=== PATIENT | male | born 1960 | race Caucasian/White ===

== ENCOUNTER 2024-08-11 07:42 | Outpatient (RCR) | payer BC, SELFPAY ==
[2024-08-04 13:02] VITALS: BMI 28.3
== END 2024-11-02 23:59 | disposition home or self-care (01) ==
LOC: ANHWOC 07:42
PROVIDERS: PCP Family Medicine; Visit Provider Student in an Organized Health Care Education/Training Program
DX: E11.42 Type 2 diabetes mellitus with diabetic polyneuropathy (principal); E11.621 Type 2 diabetes mellitus with foot ulcer; L97.519 Non-pressure chronic ulcer of other part of right foot with unspecified severity; L97.529 Non-pressure chronic ulcer of other part of left foot with unspecified severity
CPT/HCPCS: 99214; A9270; G0463

== ENCOUNTER 2024-08-18 11:45 | Outpatient (CLI) | payer BC, SELFPAY ==
[2024-08-18 12:19] LABS: Basophils Absolute Auto 0.1 K/mm3 (0.0-0.1); Basophils Percent Auto 0.5 % (0.2-1.2); Eosinophils Absolute Auto 0.3 K/mm3 (0-0.3); Eosinophils Percent Auto 2.4 % (0-4.4); Hematocrit 42.1 % (42.0-52.0); Hemoglobin 12.8 g/dL (14.0-18.0); Immature Granulocyte Absolute 0.07 K/mm3 (0.00-0.031); Immature Granulocyte Percent A 0.6 % (0-0.5); Lymphocytes Absolute Auto 1.48 K/mm3 (0.9-3.2); Lymphocytes Percent Auto 13.2 % (18.3-44.2); Mean Corpuscular HGB Conc 30.4 g/dl (32-36); Mean Corpuscular Hemoglobin 25.7 pg (26-34); Mean Corpuscular Volume 84.4 fl (80-100); Mean Platelet Volume 8.8 fl (7.4-10.4); Monocytes Absolute Auto 1.4 K/mm3 (0.1-0.6); Monocytes Percent Auto 12.8 % (2.6-8.5); Neutrophils Absolute Auto 7.9 K/mm3 (1.3-6.7); Neutrophils Percent Auto 70.5 % (45.5-73.1); Platelet Count Result 381 k/mm3 (150-375); Red Blood Count 4.99 M/mm3 (4.6-6.20); Red Cell Distribution Width 16.9 % (11.5-14.5); White Blood Count 11.2 K/mm3 (4.5-10.0)
--- NOTE | 2024-08-18 12:23 | ECG_ITS ---
Test Date: 2024-08-18 12:29:31 Measurements Intervals [place] Rate: 91 P: 37 WI: 101 QRS: 51 QRSD: 82 T: 58 QT: 324 QTc: 399 Interpretive Statements SINUS RHYTHM WITH SHORT WI INTERVAL No previous ECG available for comparison Electronically Signed On 08-18-2024 15:30:31 CDT by Frank Ramon M.D.
[2024-08-18 12:36] LABS: CRP 1.3 mg/dL (<1.0)
== END 2024-08-18 11:46 | disposition home or self-care (01) ==
PROVIDERS: PCP Family Medicine; Visit Provider Family Medicine
DX: I45.6 Pre-excitation syndrome (principal); L03.90 Cellulitis, unspecified; I10 Essential (primary) hypertension
CPT/HCPCS: 36415; 85025; 86140; 87040; 93005

== ENCOUNTER 2025-05-16 21:01 | Inpatient (IN) | payer MEDICAID, SELFPAY ==
--- NOTE | ~2025-05-16 | MR_ITS ---
EXAMINATION: MR shoulder LT wo con DATE: 05/22/2025 14:08 INDICATION: Left shoulder pain TECHNIQUE: Magnetic resonance imaging (MRI) of the left shoulder was performed without intravenous co ntrast. Sequences included axial PD-weighted FS FSE, coronal oblique PD-weighted FS FSE, coronal obli que T2-weighted FS FSE, sagittal PD-weighted FS FSE, and sagittal T1-weighted SE. COMPARISON: None. FINDINGS: Evaluation mild to moderately limited by motion artifact is some degree on all sequences. Coracoacromial arch: The acromion undersurface is flat in morphology (type I). The coracoacromial ligament is normal. Mild acromioclavicular osteoarthritis. Rotator cuff: The supraspinatus, infraspinatus and teres minor tendons are normal. Mild subscapularis tendinopathy without tear. Normal rotator cuff muscle bulk and signal. Biceps tendon, glenoid labrum and glenohumeral cartilage: Long head of the biceps tendon is normal. Anteroinferior glenoid labrum is mildly thickened with mild increased signal consistent with labral degeneration. There is also thickening and increased signal of the cartilage at the anteroinferior glenoid with configuration suggesting either chondral swelling or potentially a nondisplaced chondral flap tear. Fluid: Small glenohumeral joint effusion with fluid versus synovitis extending caudally along the articulati ng long head biceps tendon sheath. No loose osteochondral bodies. Mild increased fluid signal in the subacromial/subdeltoid bursa consistent with minimal bursitis. Bones: Bone alignment is normal. There is suggestion of a small old Hill-Sachs fracture trough at the nuclear licensing engineer ior superolateral aspect of the humeral head without associated edema to suggest acute injury. No acu te fracture or pathologic marrow replacing process. IMPRESSION: 1. Evaluation moderately limited by motion artifact present to some degree on all sequences. 2. Constellation of findings suggesting sequela of chronic anterior shoulder dislocation with chronic appearing shallow Hill-Sachs fracture trough at the humeral head and with low to moderate grade nader dromalacia and degenerative tearing of the glenoid labrum at the anteroinferior glenoid. 3. Mild subscapularis tendinopathy without discrete tear. 4. Small left glenohumeral joint effusion and minimal subacromial/subdeltoid bursitis. Reviewed, dictated and finalized at location A. IMPRESSION: 1. Evaluation moderately limited by motion artifact present to some degree on a ll sequences. 2. Constellation of findings suggesting sequela of chronic anterior shoulder di slocation with chronic appearing shallow Hill-Sachs fracture trough at the herbert ral head and with low to moderate grade chondromalacia and degenerative tearing of the glenoid labrum at the anteroinferior glenoid. 3. Mild subscapularis tendinopathy without discrete tear. 4. Small left glenohumeral joint effusion and minimal subacromial/subdeltoid bu rsitis.
--- NOTE | ~2025-05-16 | US_ITS ---
EXAMINATION: US arterial duplex LE DATE: 05/21/2025 16:35 INDICATION: Peripheral vascular disease with lower limb pain and nonhealing wounds TECHNIQUE: Multiple grayscale and Doppler ultrasound images of the arteries of the bilateral lower li mbs were obtained. COMPARISON: None FINDINGS: Normal triphasic waveforms with brisk systolic upstrokes at the right common femoral, superficial fem oral, profunda femoral, popliteal, posterior tibial, peroneal and anterior tibial arteries. Biphasic waveforms with brisk systolic upstroke at the right dorsalis pedis artery. Gradual decrease in the pr oximal to distal peak systolic velocities of the arteries with no evident hemodynamically significant stenosis on grayscale imaging or focally increased velocities to suggest this. Normal triphasic waveforms with brisk systolic upstrokes at the left common femoral, profunda femoral , superficial femoral, popliteal, posterior tibial, peroneal and anterior tibial arteries. Monophasic waveform with brisk systolic upstroke at the left anterior tibial artery. Gradual decrease in the pr oximal to distal peak systolic velocities of the arteries with no evident hemodynamically significant stenosis on grayscale imaging or focally increased velocities to suggest this. IMPRESSION: 1. Normal brisk systolic upstrokes throughout the arteries of the bilateral lower limbs with no evide nt hemodynamically significant stenosis by Doppler or grayscale imaging. Reviewed, dictated and finalized at location A. IMPRESSION: 1. Normal brisk systolic upstrokes throughout the arteries of the bilateral low er limbs with no evident hemodynamically significant stenosis by Doppler or gra yscale imaging.
--- NOTE | ~2025-05-16 | XR_ITS ---
XR ankle RT min 3V, XR foot RT min 3V 05/17/2025 02:01 Indication: Ulcers. Infection. Procedure: 5 views right ankle and 4 views right foot Comparison: No prior studies for comparison. Findings: There is periosteal reaction along the distal aspect of the fibula and tibia. Soft tissue i rregularity with swelling. There is skin thickening overlying the anterior aspect of the ankle and do rsum of the foot. Lisfranc joint intact. No acute fracture. Impression: 1: Extensive skin thickening dorsum of the foot and anterior margin of the ankle. Periosteal reaction of the distal aspect of the fibula and tibia. These findings are suspicious for underlying osteomyel itis with cellulitis. Recommend correlation with MRI of the ankle/foot with contrast. Reviewed, dictated and finalized at location A. Impression: 1: Extensive skin thickening dorsum of the foot and anterior margin of the ankl e. Periosteal reaction of the distal aspect of the fibula and tibia. These find ings are suspicious for underlying osteomyelitis with cellulitis. Recommend cor relation with MRI of the ankle/foot with contrast. Impression: 1: Extensive skin thickening dorsum of the foot and anterior margin of the ankl e. Periosteal reaction of the distal aspect of the fibula and tibia. These find ings are suspicious for underlying osteomyelitis with cellulitis. Recommend cor relation with MRI of the ankle/foot with contrast.
--- NOTE | ~2025-05-16 | XR_ITS ---
XR knee LT 3V 05/17/2025 02:01 Indication: Left knee pain. Patient unable to straighten knee. Procedure: 3 views left knee are suboptimal due to flexion at the knee. Comparison: No prior studies for comparison. Findings: Mild osteoarthritis of the patellofemoral compartment. No acute fracture or traumatic malal ignment. There is an old avulsion fracture involving the lateral collateral ligament at the femoral c ondyle. Small joint effusion. No acute fracture. Impression: 1: No acute fracture. Limited study. 2: Small joint effusion. Reviewed, dictated and finalized at location A. Impression: 1: No acute fracture. Limited study. 2: Small joint effusion.
--- NOTE | ~2025-05-16 | XR_ITS ---
XR shoulder LT min 2V 05/17/2025 02:01 Indication: Left shoulder pain Procedure: 4 views left shoulder Comparison: No prior studies for comparison. Findings: There is superior subluxation of the humeral head with respect to the glenoid process, like ly secondary to rotator cuff tear. No fracture, subluxation or dislocation. There is mild osteoarthri tis of the shoulder. Impression: 1: No acute fracture. Reviewed, dictated and finalized at location A. Impression: 1: No acute fracture.
--- NOTE | ~2025-05-16 | MR_ITS ---
EXAMINATION: MR foot LT wo/w con DATE: 05/18/2025 14:00 INDICATION: Ulcers and infection at the left foot and ankle. Assess for osteomyelitis. TECHNIQUE: Magnetic resonance imaging (MRI) of the left hindfoot and ankle was performed without and with 15 mL Multihance intravenous contrast. Sequences included axial, sagittal and coronal T1-weighte d FSE, sagittal fluid sensitive FSE STIR, axial and coronal T2-weighted FS FSE, axial T1-weighted FS FSE, and postcontrast axial, sagittal and coronal T1-weighted FSE. COMPARISON: None FINDINGS: Bone alignment is normal. No fracture. Mild polyarticular osteoarthritis with minimal to mild nonunif orm joint space narrowing and/or tiny marginal osteophytes at the left ankle joint and the visualized joints in the mid and hindfoot. There is subarticular edema-like signal change and enhancement at th e both sides of the ankle joint which corresponds in location to a prominent subchondral osteopenia o n the prior radiographs. Similar findings are seen to lesser extent at the subtalar, talonavicular an d calcaneocuboid joints. No evident cortical erosions, osteophytes or geographic loss of T1 marrow fa t signal to suggest osteomyelitis. Also argue against osteomyelitis is absence of associated joint ef fusions. This could be due to transient osteoporosis, complex regional pain syndrome or inflammatory arthritis such as rheumatoid arthritis. There is normal marrow signal with no loss of T1 fat signal, edema or enhancement associated with a chronic periosteal reaction along the metadiaphyseal regions o f the distal tibia and fibula which could be due to venous stasis or hypertrophic pulmonary osteoarth ropathy. Heterotopic ossification along the anterior talofibular ligament likely sequela of chronic sprain. Th e remaining medial and lateral stabilizing ligaments of the ankle are normal. Mild tendinopathy and l ongitudinal split tears of the peroneus longus and brevis tendons with mild associated tenosynovitis. This also mild tendinosis without tear of the distal Achilles tendon. Plantar aponeurosis is normal. There is moderate fatty atrophy of the visualized intrinsic musculature of the foot. Mild soft tissu e edema in the foot with no abscess or other abnormal enhancing lesions. There is skin thickening abo ut the ankle and over the dorsum of the foot which could be due to cellulitis or chronic venous stasi s. IMPRESSION: 1. Chronic periosteal reaction along the distal metadiaphyseal regions of the tibia and fibula withou t associated marrow signal changes which could be due to chronic venous stasis or potentially hypertr ophic pulmonary osteoarthropathy. No lesion suspicious for osteomyelitis in the right hind foot or an kle. 2. Subchondral edema-like signal change and enhancement without cortical erosions, loss of T1 marrow fat signal more joint effusions to suggest osteomyelitis at the ankle, subtalar, talonavicular and ca lcaneocuboid joints which could be due to osteoarthritis, inflammatory arthritis, complex regional pa in syndrome or transient osteoporosis. 3. Mild tendinopathy and longitudinal split tears of the peroneus longus and brevis tendons with mild associated tenosynovitis. Reviewed, dictated and finalized at location A. IMPRESSION: 1. Chronic periosteal reaction along the distal metadiaphyseal regions of the t ibia and fibula without associated marrow signal changes which could be due to chronic venous stasis or potentially hypertrophic pulmonary osteoarthropathy. N o lesion suspicious for osteomyelitis in the right hind foot or ankle. 2. Subchondral edema-like signal change and enhancement without cortical erosio ns, loss of T1 marrow fat signal more joint effusions to suggest osteomyelitis at the ankle, subtalar, talonavicular and calcaneocuboid joints which could be due to osteoarthritis, inflammatory arthritis, complex regional pain syndrome o r transient osteoporosis. 3. Mild tendinopathy and longitudinal split tears of the peroneus longus and br colleen tendons with mild associated tenosynovitis.
--- NOTE | ~2025-05-16 | MR_ITS ---
EXAMINATION: MR foot RT wo/w con DATE: 05/19/2025 13:59 INDICATION: Assess for osteomyelitis. TECHNIQUE: Magnetic resonance imaging (MRI) of the right hindfoot and ankle was performed without and with 18 mL Multihance intravenous contrast. Sequences included axial, sagittal and coronal T1- weighted FSE, sagittal fluid sensitive FSE STIR, axial and coronal T2-weighted FS FSE, axial T1- weighted FS FSE, and postcontrast axial, sagittal and coronal T1-weighted FSE. COMPARISON: Right ankle radiographs dated 05/17/2025 and contralateral left ankle and hindfoot MRI omid ed 05/18/2025 FINDINGS: Bone alignment is normal. No fracture. Mild polyarticular osteoarthritis with minimal to mild nonunif orm joint space narrowing and/or tiny marginal osteophytes at the left ankle joint and the visualized joints in the mid and hindfoot. There is subarticular edema-like signal change and enhancement at th e both sides of the ankle joint which corresponds in location to prominent subchondral osteopenia on the prior radiographs. Similar findings are seen to lesser extent at the subtalar, talonavicular and calcaneocuboid joints. This appears relatively symmetric with the findings at the left ankle and hind foot observed on MRI from one day prior. No evident cortical erosions, osteolysis or geographic loss of T1 marrow fat signal to suggest osteomyelitis. There is some enhancing synovitis at the margins of these joint spaces but no evident joint effusion to elevate suspicion for osteomyelitis. This could be due to transient osteoporosis, inflammatory arthritis such as rheumatoid arthritis or, complex reg ional pain syndrome although a symmetric pattern at the bilateral ankles and hindfeet would be unusua l. There is normal marrow signal with no loss of T1 fat signal, edema or enhancement associated with a chronic periosteal reaction along the metadiaphyseal regions of the distal tibia and fibula which c ould be due to venous stasis or hypertrophic pulmonary osteoarthropathy. This is similarly nearly julissa ntical to the contralateral distal left lower leg which also argues against chronic osteomyelitis. There is attenuation of the anterior talofibular ligament without significant surrounding edema consi stent with sequela of chronic sprain/partial tear. The remaining medial and lateral stabilizing ligam ents of the ankle are normal. Mild tendinosis without tear of the distal Achilles tendon with mild pe ritendinitis. Remaining flexor and extensor tendons of the foot and ankle are normal. Mild proximal p lantar enthesopathy without associated edema or enhancement to suggest acute plantar fasciitis. Relat ively symmetric moderate fatty atrophy of the visualized intrinsic musculature of the foot. Mild soft tissue edema in the foot with no abscess or other abnormal enhancing lesions. There is skin thickeni ng about the ankle and over the dorsum of the foot which given the symmetry would favor venous stasis over cellulitis. There is a shallow likely venous stasis ulcer with some surrounding subcutaneous ed alissa posterior medial to the distal tibial metaphysis. No abscess. IMPRESSION: 1. Relatively symmetric appearance of chronic periosteal reaction along the distal metadiaphyseal reg ions of the tibia and fibula without associated marrow signal changes and with similarly symmetric sk in thickening at the ankle and dorsum of the hindfoot as seen at the contralateral foot and ankle windy uld be most consistent with changes of chronic venous stasis with likely venous stasis ulcer at the m edial aspect of the distal right lower leg. Differential for the periosteal reaction would include le ss likely hypertrophic pulmonary osteoarthropathy. No abscess or lesion suspicious for osteomyelitis in the right hind foot or ankle. 2. Subchondral edema-like signal change and enhancement without cortical erosions, loss of T1 marrow fat signal without joint effusions at the right ankle, subtalar, talonavicular and calcaneocuboid yessenia nts similar to that previously seen at the left foot and ankle which could be due to osteoarthritis, inflammatory arthritis, transient osteoporosis or less likely complex regional pain syndrome. 3. Mild right Achilles tendinosis and mild peritendinitis. Reviewed, dictated and finalized at location A. IMPRESSION: 1. Relatively symmetric appearance of chronic periosteal reaction along the dis maris metadiaphyseal regions of the tibia and fibula without associated marrow si gnal changes and with similarly symmetric skin thickening at the ankle and dors um of the hindfoot as seen at the contralateral foot and ankle should be most c onsistent with changes of chronic venous stasis with likely venous stasis ulcer at the medial aspect of the distal right lower leg. Differential for the perio steal reaction would include less likely hypertrophic pulmonary osteoarthropath y. No abscess or lesion suspicious for osteomyelitis in the right hind foot or ankle. 2. Subchondral edema-like signal change and enhancement without cortical erosio ns, loss of T1 marrow fat signal without joint effusions at the right ankle, huggins btalar, talonavicular and calcaneocuboid joints similar to that previously seen at the left foot and ankle which could be due to osteoarthritis, inflammatory arthritis, transient osteoporosis or less likely complex regional pain syndrome . 3. Mild right Achilles tendinosis and mild peritendinitis.
--- NOTE | ~2025-05-16 | US_ITS ---
EXAMINATION: US venous doppler LE DATE: 05/24/2025 17:00 INDICATION: bedrest, LE wounds and pain. TECHNIQUE: Grayscale images without and with compression and Doppler images of the bilateral lower ex tremity veins were obtained. COMPARISON: None FINDINGS: The right common femoral vein, profunda (deep) femoral vein, femoral vein, popliteal vein, peroneal v ein, posterior tibial veins, gastrocnemius vein, and greater saphenous vein are patent. The left common femoral vein, profunda (deep) femoral vein, femoral vein, popliteal vein, peroneal v ein, posterior tibial veins, gastrocnemius vein, and greater saphenous vein are patent. IMPRESSION: Patent bilateral lower extremity veins. No evidence of deep venous thrombosis. Reviewed, dictated and finalized at location K.
--- NOTE | ~2025-05-16 | XR_ITS ---
XR ankle LT min 3V, XR foot LT min 3V 05/17/2025 02:01 Indication: Ulcers. Infection. Procedure: 3 views left ankle and 3 views left foot Comparison: No prior studies for comparison. Findings: Moderate diffuse soft tissue swelling. Old avulsion fracture distal fibula. Periosteal reac tion present distal aspect of the tibia and fibula. Osteopenia. Lisfranc joint normally aligned. Impression: 1: Periosteal reaction distal aspect of the tibia and fibula with moderate diffuse soft tissue swelli ng of the ankle and foot. Skin thickening is present anteriorly overlying the ankle and foot. Conside r osteomyelitis in the appropriate clinical setting versus reactive changes secondary to cellulitis. Recommend correlation with MRI with contrast to exclude osteomyelitis. Reviewed, dictated and finalized at location A. Impression: 1: Periosteal reaction distal aspect of the tibia and fibula with moderate diff use soft tissue swelling of the ankle and foot. Skin thickening is present ante riorly overlying the ankle and foot. Consider osteomyelitis in the appropriate clinical setting versus reactive changes secondary to cellulitis. Recommend cor relation with MRI with contrast to exclude osteomyelitis. Impression: 1: Periosteal reaction distal aspect of the tibia and fibula with moderate diff use soft tissue swelling of the ankle and foot. Skin thickening is present ante riorly overlying the ankle and foot. Consider osteomyelitis in the appropriate clinical setting versus reactive changes secondary to cellulitis. Recommend cor relation with MRI with contrast to exclude osteomyelitis.
[2025-05-16 21:23] VITALS: BP 129/81; PULSE 80; RESP 17; TEMP 36.6; O2SAT 100
--- NOTE | 2025-05-17 00:50 | ED.LOWEXIN ---
HPI - Extremity Injury (Lower) General Chief Complaint: Extremity Injury, Lower Stated Complaint: L knee pain. Locked knee Time Seen by Provider: 05/17/25 00:29 History of Present Illness HPI Narrative: 64-year-old male with a past medical history including peripheral vascular disease, diabetes mellitus type 2, hypertension, hyperlipidemia. Patient presents to the emergency department for infected wounds and ulcers of his bilateral lower extremities as well as immobility and concerns for placement. 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 He was diagnosed with venous stasis dermatitis and cellulitis of both legs requiring IV antibiotics and operative debridement. Patient states he was discharged initially to rehab but his insurance was declined and he was sent home on a plane back to [place]. Patient is not able to ambulate and has been having some restricted range of motion and stiffness in his left knee as well as left shoulder. Symptoms going on since before his previous hospitalization in April. He has venous stasis dermatitis of both legs, ulcerations in various forms and stages of healing worsening on the right lower extremity. 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 No history of DVT or PE. He has purulent drainage from his ulcers of his right lower extremity on wounds almost circumferential in his right ankle in healed ulcers of his lateral right foot and ankle. His left foot and ankle has ulcerations on the ankle and dorsum of the left foot in various stages of healing with less signs of active infection with good granulation tissue and redness without bleeding. Able to wiggle the toes and has sensation in both feet. Denies any falls or injuries. He was otherwise doing well since discharge but he called his primary care provider today as he was having difficulty with his wounds and the purulent drainage and cannot take care of himself. Dr. Douglass requested he come to the hospital for evaluation with interventions and rehab/placement. Related Data Allergies Allergy/AdvReac Type Severity Reaction Status Date / Time No Known Allergies Allergy Mild Verified 05/17/25 06:45 [facility] Past Medical History Medical History Arthritis Asthma Bronchitis Chronic right shoulder pain Chronic skin ulcer of lower leg Dyslipidemia Dyspnea Effusion, left elbow Elevated serum alkaline phosphatase level Essential (primary) hypertension GERD (gastroesophageal reflux disease) Headache Hemorrhoids Hypertension Hyponatremia Jaundice Neutrophilic leukocytosis PVD (peripheral vascular disease) Rheumatoid arthritis with positive rheumatoid factor SOB (shortness of breath) on exertion Thrombocytosis Type 2 diabetes mellitus without complication, without long-term current use of insulin Family History Family History Other Diabetes mellitus Family history of lung cancer Hypertension Social History Social History Smoking status: Former smoker Tobacco type: cigarettes Second hand tobacco smoke exposure: No Smoking end date: 10/26/12 Alcohol intake: never Substance use: never Substance use type: does not use Do You Feel Safe in your Home?: Yes Lack of Transportation: No Lack of Food: Never True Current Housing: I Have Housing Concerned About Future Housing: YES Difficulty Paying Gas/Electric Bills: No Difficulty Paying for Meds: No Currently Unemployed: No Education: High School Diploma/GED Difficulty w/ Childcare or Family Care: No Living arrangements: with family Gender identity (if verbalized by the patient): Male Sexual Orientation (if Verbalized by the Patient): Straight or Heterosexual Spiritual care concerns: No Agree to blood products: Yes Exam Narrative: GENERAL: [Well-appearing, well-nourished, and in no acute distress.] HEAD: [Normocephalic, atraumatic.] EYES: [PERRLA and EOMI.] ENT: Nares clear, no rhinorrhea or epistaxis. Mucous membranes moist. NECK: Supple. CHEST: [Clear to auscultation. No respiratory distress.] HEART: [Regular rate and rhythm]. No murmur heard. [Normal peripheral pulses.] ABDOMEN: [Soft, nondistended], [nontender], [No rigidity or guarding] EXTREMITIES: Venous stasis dermatitis of both legs, ulcerations in various forms and stages of healing worsening on the right lower extremity. 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 No history of DVT or PE. He has purulent drainage from his ulcers of his right lower extremity on wounds almost circumferential in his right ankle in healed ulcers of his lateral right foot and ankle. His left foot and ankle has ulcerations on the ankle and dorsum of the left foot in various stages of healing with less signs of active infection with good granulation tissue and redness without bleeding. Able to wiggle the toes and has sensation in both feet. Inability to extend the knee on the left side with fixed position at approximately 90?. Able to plantar and dorsiflex the ankles. Able to range the hip. No overlying cellulitic skin changes to the knee or crepitus with palpation. Inability to flex the left shoulder or abduct the left shoulder. Elbow range of motion and wrist range of motion is full. Compatible with frozen left shoulder. SKIN: Warm, dry, no rash. NEURO: [No focal deficits]. Alert and oriented [x3.] PSYCH: [Normal mood and affect.] Course Vital Signs Vital signs: Vital Signs Temperature 36.6 C 05/16/25 21:23 Pulse Rate 80 05/16/25 21:23 Respiratory Rate 17 05/16/25 21:23 Blood Pressure 129/81 05/16/25 21:23 Pulse Oximetry 100 05/16/25 21:23 Oxygen Delivery Room Air 05/16/25 21:23 Temperature 36.8 C 05/17/25 06:21 Pulse Rate 93 05/17/25 06:21 Respiratory Rate 16 05/17/25 06:21 Blood Pressure 115/89 05/17/25 06:21 Pulse Oximetry 100 05/17/25 06:21 Oxygen Delivery Room Air 05/16/25 21:23 MDM - Extremity Injury (Lower) MDM Narrative Medical decision making narrative: 64-year-old male with a past medical history including peripheral vascular disease, diabetes mellitus type 2, hypertension, hyperlipidemia. Patient presents to the emergency department for infected wounds and ulcers of his bilateral lower extremities as well as immobility and concerns for placement. 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 He was diagnosed with venous stasis dermatitis and cellulitis of both legs requiring IV antibiotics and operative debridement. Patient states he was discharged initially to rehab but his insurance was declined and he was sent home on a plane back to [place]. Patient is not able to ambulate and has been having some restricted range of motion and stiffness in his left knee as well as left shoulder. Symptoms going on since before his previous hospitalization in April. He has venous stasis dermatitis of both legs, ulcerations in various forms and stages of healing worsening on the right lower extremity. 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 No history of DVT or PE. He has purulent drainage from his ulcers of his right lower extremity on wounds almost circumferential in his right ankle in healed ulcers of his lateral right foot and ankle. His left foot and ankle has ulcerations on the ankle and dorsum of the left foot in various stages of healing with less signs of active infection with good granulation tissue and redness without bleeding. Able to wiggle the toes and has sensation in both feet. Denies any falls or injuries. Inability to flex the left shoulder or abduct the left shoulder. Elbow range of motion and wrist range of motion is full. Compatible with frozen left shoulder. He was otherwise doing well since discharge but he called his primary care provider today as he was having difficulty with his wounds and the purulent drainage and cannot take care of himself. Dr. Douglass requested he come to the hospital for evaluation with interventions and rehab/placement. Patient has palpable distal pulses and good capillary refill. Ulcerations compatible with venous stasis dermatitis, ulcerations with overlying cellulitis. Given patient's history of diabetes he was started on broad coverage including vancomycin and cefepime and blood cultures were obtained. X-rays of both ankles and feet were obtained. X-rays of the left knee and left shoulder were obtained. Patient will require admission for antibiotics, physical therapy, PT, OT and likely placement based on his level debility. Blood cultures and laboratory studies ordered and pending. X-rays showed diffuse cellulitis involving multiple areas of bilateral lower extremities. No acute osseous abnormalities in the knee or shoulder. Patient felt better after initial interventions here and antibiotics. Discussed the case with the hospitalist who accepted the patient to the hospital. Wound care consult placed. Workup shows a slight leukocytosis but no anemia. Normal electrolyte panel, normal creatinine, normal glucose and normal LFTs. Urinalysis without infection. Medical Records Attestation: I reviewed the patient's medical records. Lab Data Attestation: I reviewed the patient's lab results. 05/17/25 06:10 05/17/25 01:58 Labs: Lab Results 05/17/25 05/17/25 Range/Units 01:58 03:15 Sodium 134 L (137-145) mmol/L Potassium 3.4 (3.4-5.0) mmol/L Chloride 102 (98-107) mmol/L Carbon Dioxide 22 (22-30) mmol/L Anion Gap 10 (4-12) mmol/L BUN 12 (9-20) mg/dL Creatinine 0.63 L (0.7-1.3) mg/dL Estim Creat Clear Calc 111 ml/min Estimated GFR > 60 (59 - ) Glucose 96 (65-110) mg/dL Calcium 9.4 (8.4-10.2) mg/dL Total Bilirubin 0.6 (0.2-1.3) mg/dL AST 24 (17-59) U/L ALT 16 (6-50) U/L Alkaline Phosphatase 110 (38-126) U/L C-Reactive Protein 8.4 H (<1.0) mg/dL Total Protein 7.4 (6.3-8.2) g/dL Albumin 3.7 (3.5-5.1) g/dL Urine Color Dark yellow (Yellow) Urine Appearance Cloudy H (Clear) Urine pH 6.5 (5.0-9.0) Ur Specific [place] 1.024 (1.001-1.035) Urine Protein 1+ H (Negative) mg/dL Urine Glucose (UA) Negative (Negative) mg/dL Urine Ketones Trace H (Negative) mg/dL Ur Blood (Man) Negative (Negative) Urine Nitrate Negative (Negative) Urine Bilirubin 1+ H (Negative) Urine Urobilinogen >=8.0 H (<2.0) mg/dL Leukocyte Esterase Rfl Negative (Negative) NUBIA/UL Urine RBC 0-2 (0-2) /hpf Urine WBC 0-5 (0-3) /hpf Ur Squamous Epith Cells None seen (Few) /hpf Urine Bacteria None seen /hpf Urine Casts 0-2 Imaging Data Attestation: I personally reviewed and interpreted this imaging study as follows: My impression: Skin cellulitis no subcutaneous emphysema. Knee x-ray with trip trace knee effusion but no acute fracture dislocation. X-ray of the left and right ankle shows cellulitis with soft tissue swelling. No obvious cortical bone erosion or osteomyelitis. No fracture dislocations. Shoulder x-ray shows some slight narrowing osteophytes but otherwise no acute fracture dislocation. Chronic rotator cuff disease known. Discharge Plan Discharge Clinical Impression: Bilateral cellulitis of lower leg, Chronic venous stasis dermatitis of both lower extremities, Debility, Diabetic ulcer of ankle Patient Disposition: Still a Patient Condition: Stable
--- NOTE | 2025-05-17 01:48 | ECG_ITS ---
Test Date: 2025-05-17 01:48:24 Measurements Intervals [place] Rate: 82 P: 83 PA: 120 QRS: 56 QRSD: 93 T: 52 QT: 365 QTc: 429 Interpretive Statements SINUS RHYTHM WITH SHORT PA INTERVAL BASELINE ARTIFACT LIMITS INTERPRETATION ABNORMAL ECG Compared to ECG 08/18/2024 12:29:31 Short PA interval no longer present Electronically Signed On 05-17-2025 10:05:11 CDT by Juan Luis De Los Santos M.D.
[2025-05-17 02:15] VITALS: BP 183/93; PULSE 83; RESP 16; O2SAT 99
[2025-05-17 02:26] LABS: Alanine Aminotransferase 16 U/L (6-50); Albumin Level 3.7 g/dL (3.5-5.1); Alkaline Phosphatase 110 U/L (38-126); Anion Gap 10 mmol/L (4-12); Aspartate Amino Transferase 24 U/L (17-59); Bilirubin,Total 0.6 mg/dL (0.2-1.3); Blood Urea Nitrogen 12 mg/dL (9-20); Calcium 9.4 mg/dL (8.4-10.2); Carbon Dioxide 22 mmol/L (22-30); Chloride 102 mmol/L (98-107); Estimated CRCL calculation 111 ml/min; Estimated Glomerular Filt Rate > 60; Glucose 96 mg/dL (65-110); Potassium 3.4 mmol/L (3.4-5.0); Sodium 134 mmol/L (137-145); Total Protein 7.4 g/dL (6.3-8.2)
[2025-05-17] MEDS: CEFEPIME 2 GM in SODIUM CHLORIDE 0.9% IV 50 ML 100 ML IVPB ×3 (03:01→21:41)
[2025-05-17 03:26] LABS: Add Urine Microscopic? YES; Appearance Urine Cloudy (Clear); Glucose Urine UA Negative (Negative); Leukocyte Esterase Ur Negative LEU/UL (Negative); Nitrate Urine Negative (Negative); Non Pathogenic Casts 0-2; Specific Grav Ur 1.024 (1.001-1.035)
[2025-05-17] MEDS: VANCOMYCIN 1,250 MG/NS 250 ML 1,250 MG/250 ML BAG 166.67 MG IVPB ×2 (03:29→05:05)
--- NOTE | 2025-05-17 03:30 | PC.NURSE ---
Two RNs and two techs attempted to draw pt CBC and were unsuccessful. orthopedic mechanic notified.
[2025-05-17 04:15] VITALS: BP 121/74; PULSE 94; RESP 16; O2SAT 97
[2025-05-17 04:17] LABS: CRP 8.4 mg/dL (<1.0)
[2025-05-17 06:15] VITALS: BMI 26.9
[2025-05-17 06:17] LABS: Hematocrit 46.2 % (42.0-52.0); Hemoglobin 14.2 g/dL (14.0-18.0); Immature Granulocyte Percent A 0.4 % (0-0.5); Lymphocytes Absolute Auto 1.52 K/mm3 (0.9-3.2); Mean Corpuscular HGB Conc 30.7 g/dl (32-36); Mean Corpuscular Hemoglobin 25.8 pg (26-34); Mean Corpuscular Volume 84.0 fl (80-100); Nucleated Red Blood Cells Absolute Auto 0.000 K/mm3 (0.0-0.012); Nucleated Red Blood Cells Perc 0.0 % (0.0-0.2); Platelet Count Result 443 k/mm3 (150-375); Red Blood Count 5.50 M/mm3 (4.6-6.20); White Blood Count 11.2 K/mm3 (4.5-10.0)
[2025-05-17 06:21] VITALS: BP 115/89; PULSE 93; RESP 16; TEMP 36.8; O2SAT 100
--- NOTE | 2025-05-17 06:27 | ADMGEN ---
This patient, Brian Maldonado, was admitted to [facility] Surg Room 314-02. Patient/family oriented to hospital policies and general routines including ID bracelet, bed and alarms, visiting hours, pain management, procedures, bathroom and other care routines, personal items, smoking policy, room service/diet, and visiting hours. Information on how to activate the Rapid Response Team has been discussed. Patient/Family are encouraged to report perceived risks to care and to ask questions if they do not understand what they are told or what they should do.
--- NOTE | 2025-05-17 06:33 | WNDPHOTO ---
PHOTO ONLY - See Nursing Notes and/ or assessments for left footdocumentation.
--- NOTE | 2025-05-17 06:39 | WNDPHOTO ---
PHOTO ONLY - See Nursing Notes and/ or assessments for documentation.
--- NOTE | 2025-05-17 06:41 | WNDPHOTO ---
PHOTO ONLY - See Nursing Notes and/ or assessments for documentation.
--- NOTE | 2025-05-17 06:42 | WNDPHOTO ---
PHOTO ONLY - See Nursing Notes and/ or assessments for documentation.
--- NOTE | 2025-05-17 06:42 | WNDPHOTO ---
PHOTO ONLY - See Nursing Notes and/ or assessments for documentation.
--- NOTE | 2025-05-17 06:43 | WNDPHOTO ---
PHOTO ONLY - See Nursing Notes and/ or assessments for documentation.
--- NOTE | 2025-05-17 07:33 | P.HP_ITS ---
H&P: HPI History of Present Illness Date/Time: 05/17/25 07:33 Chief Complaint: Worsening ulcer of lower extremities and general weakness Narrative: 64-year-old male with a past medical history of asthma, PVD, hypertension, type 2 diabetes, venous stasis present ED with a chief complaint of worsening ulcer of bilateral lower extremities and general weakness. Patient has venous stasis dermatitis border extremities, and patient has ulcers of right lower extremity. He has purulent drainage from his ulcers of his right lower extremity on wounds almost circumferential in his right ankle in healed ulcers of his lateral right foot and ankle, and left foot and ankle has ulcerations on the ankle and dorsum of the left foot in various stages of healing with less signs of active infection with good granulation tissue and redness without bleeding. Patient has general weakness, denies focal weakness, patient called called his primary care provider today as he was having difficulty with his wounds and the purulent drainage and cannot take care of himself, patient referred to the ED by primary care doctor for further evaluation treatment. Upon arrival to ED, patient was afebrile, blood pressure stable, no O2 desaturation on room air Lab showed leukocytosis 11,200 Chemistry unremarkable Right ankle x-ray showed extensive skin thickening dorsum of the foot and anterior margin of the ankle. Periosteal reaction of the distal aspect of the fibula and tibia. These findings are suspicious for underlying osteomyelitis with cellulitis. Radiologist recommends correlation with MRI of the ankle/foot with contrast. [facility] Past Medical History Medical History Arthritis Asthma Bronchitis Chronic right shoulder pain Chronic skin ulcer of lower leg Dyslipidemia Dyspnea Effusion, left elbow Elevated serum alkaline phosphatase level Essential (primary) hypertension GERD (gastroesophageal reflux disease) Headache Hemorrhoids Hypertension Hyponatremia Jaundice Neutrophilic leukocytosis PVD (peripheral vascular disease) Rheumatoid arthritis with positive rheumatoid factor SOB (shortness of breath) on exertion Thrombocytosis Type 2 diabetes mellitus without complication, without long-term current use of insulin Family History Family History Other Diabetes mellitus Family history of lung cancer Hypertension Social History Social History Smoking status: Former smoker Tobacco type: cigarettes Second hand tobacco smoke exposure: No Smoking end date: 10/26/12 Alcohol intake: never Substance use: never Substance use type: does not use Do You Feel Safe in your Home?: Yes Lack of Transportation: No Lack of Food: Never True Current Housing: I Have Housing Concerned About Future Housing: YES Difficulty Paying Gas/Electric Bills: No Difficulty Paying for Meds: No Currently Unemployed: No Education: High School Diploma/GED Difficulty w/ Childcare or Family Care: No Living arrangements: with family Gender identity (if verbalized by the patient): Male Sexual Orientation (if Verbalized by the Patient): Straight or Heterosexual Spiritual care concerns: No Agree to blood products: Yes Meds Home Medications and Allergies Home Medications ?Medication ?Instructions ?Recorded ?Confirmed ?Type fluticasone fur. 200 mcg-umeclid 1 inh inhalation DAILY #28 ea 04/01/22 08/22/24 Rx 62.5 mcg-vilant 25 mcg inhalat.powder (Trelegy Ellipta) lisinopril 40 mg tablet 40 mg PO DAILY #90 tabs 09/14/23 08/22/24 Rx sodium hypochlorite 0.125 % 1 applic topical Q12H #946 mL 11/23/23 08/22/24 Rx solution (Dakin's Solution) albuterol sulfate 90 mcg/actuation 2 inh inhalation Q4H PRN shortness 03/07/24 08/22/24 Rx aerosol inhaler of breath or wheezing #8.5 grams silver sulfadiazine 1 % topical 1 applic topical BID #400 grams 07/26/24 08/22/24 Rx cream hydrochlorothiazide 12.5 mg tablet 6.25 mg (1/2 x 12.5 mg) PO DAILY 08/15/24 08/22/24 Rx #90 tabs ferrous sulfate 325 mg (65 mg 325 mg PO DAILY #100 tabs 09/08/24 Rx iron) tablet,delayed release folic acid 1 mg tablet See Rx Instructions .Route 09/08/24 Rx .COMPLEX #90 tabs aspirin 81 mg tablet,delayed 81 mg PO DAILY #90 tabs 09/09/24 Rx release atorvastatin 20 mg tablet See Rx Instructions .Route 09/09/24 Rx .COMPLEX #90 tabs glipizide 5 mg tablet 5 mg PO DAILY #90 tabs 09/09/24 Rx lisinopril 10 mg tablet 10 mg PO DAILY #90 tabs 12/08/24 Rx metformin 500 mg tablet,extended 2,000 mg (4 x 500 mg) PO QPM #360 12/08/24 Rx release 24 hr tabs gabapentin 300 mg capsule See Rx Instructions .Route 03/09/25 Rx .COMPLEX #540 caps gentamicin 0.1 % topical ointment 1 applic topical TID #120 grams 03/09/25 Rx Allergies Allergy/AdvReac Type Severity Reaction Status Date / Time No Known Allergies Allergy Mild Verified 05/17/25 06:45 Vital Signs Vital Signs - 24 hr 05/16/25 21:23 05/17/25 02:15 05/17/25 04:15 Temperature 97.9 F Pulse Rate 80 83 94 Respiratory Rate 17 16 16 Blood Pressure 129/81 183/93 H 121/74 Pulse Oximetry 100 99 97 Oxygen Delivery Room Air 05/17/25 06:21 Temperature 98.2 F Pulse Rate 93 Respiratory Rate 16 Blood Pressure 115/89 Pulse Oximetry 100 Oxygen Delivery Exam Narrative: GENERAL: Pleasant, in no acute distress. Well-nourished. - EYES: EOMI. Anicteric. - HENT: Moist mucous membranes. - LUNGS: Clear to auscultation bilateral ly, no wheezing, rhonchi, or rales. - CARDIOVASCULAR: Regular rate and rhyth m. No murmur. No JVD. - ABDOMEN: Soft, non-tender and non-dist ended. No palpable masses. - EXTREMITIES: Bilateral edema. Periphe ral pulses 2+. Non-tender. - NEUROLOGIC: No focal neurological defi cits. CN II-XII grossly intact. - PSYCHIATRIC: Awake, Alert and oriented x 3. Appropriate mood and affect. - SKIN: purulent drainage from his ulcer s of his right lower extremity on wounds circumferential in his right ankle in healed ulcers of his lateral right foot and ankle. left foot and ankle has ulcerations on the ankle and dorsum of the left foot in various stages of healing - LYMPH: No cervical lymphadenopathy. H&P: Results Labs Labs: Short CBC 05/17/25 Range/Units 06:10 WBC 11.2 H (4.5-10.0) K/mm3 Hgb 14.2 (14.0-18.0) g/dL Hct 46.2 (42.0-52.0) % Plt Count 443 H (150-375) k/mm3 [facility] 05/17/25 01:58 Sodium 134 L Potassium 3.4 Chloride 102 Carbon Dioxide 22 BUN 12 Creatinine 0.63 L Glucose 96 Calcium 9.4 Liver Function 05/17/25 Range/Units 01:58 Total Bilirubin 0.6 (0.2-1.3) mg/dL AST 24 (17-59) U/L ALT 16 (6-50) U/L Alkaline Phosphatase 110 (38-126) U/L Albumin 3.7 (3.5-5.1) g/dL Urine 05/17/25 Range/Units 03:15 Urine Color Dark yellow (Yellow) Urine Appearance Cloudy H (Clear) Urine pH 6.5 (5.0-9.0) Ur Specific [place] 1.024 (1.001-1.035) Urine Protein 1+ H (Negative) mg/dL Urine Glucose (UA) Negative (Negative) mg/dL Assessment and Plan Assessment and plan (1) Cellulitis of both lower extremities: Code(s): L03.115 - Cellulitis of right lower limb; L03.116 - Cellulitis of left lower limb Status: Acute (2) Essential (primary) hypertension: Code(s): I10 - Essential (primary) hypertension Status: Acute (3) Type 2 diabetes mellitus without complication, without long-term current use of insulin: Code(s): E11.9 - Type 2 diabetes mellitus without complications Status: Acute (4) Diabetic ulcer of both feet: Code(s): E11.621 - Type 2 diabetes mellitus with foot ulcer; L97.519 - Non-pressure chronic ulcer of other part of right foot with unspecified severity; L97.529 - Non-pressure chronic ulcer of other part of left foot with unspecified severity Status: Acute (5) Chronic venous stasis dermatitis of both lower extremities: Code(s): I87.2 - Venous insufficiency (chronic) (peripheral) Status: Acute (6) GERD (gastroesophageal reflux disease): Qualifiers: Esophagitis presence: esophagitis presence not specified Qualified Code(s): K21.9 - Gastro-esophageal reflux disease without esophagitis Code(s): K21.9 - Gastro-esophageal reflux disease without esophagitis Status: Acute Plan Cellulitis lower extremities Wound infection prominent right lower extremity Suspecting osteomyelitis of right foot Right ankle x-ray showed extensive skin thickening dorsum of the foot and anterior margin of the ankle. Periosteal reaction of the distal aspect of the fibula and tibia. These findings are suspicious for underlying osteomyelitis with cellulitis. Radiologist recommends correlation with MRI of the ankle/foot with contrast. Start vancomycin and cefepime Pending right foot MRI Optimize pain management Consult wound care History of COPD Stable Continue Trelegy Ellipta 1 puff daily a future inhaler use far p.r.n. Essential hypertension, Continue lisinopril and hydrochlorothiazide at home dose Type 2 diabetes Hold glipizide metformin Start Lantus and sliding scale a.c. q.h.s.
[2025-05-17] MEDS: oxyCODONE/ACETAMINOPHEN (*CRX) 5-325 MG TABLET 1 TABLET PO ×2 (12:42→21:49)
[2025-05-17 13:58] VITALS: BP 124/75; PULSE 99; RESP 18; TEMP 37.1; O2SAT 99
[2025-05-17] MEDS: VANCOMYCIN 1,500 MG/NS 500 ML 1,500 MG/500 ML BAG 250 MG IVPB (16:49)
[2025-05-17] MEDS: ACETAMINOPHEN 325 MG TABLET 650 MG PO (18:45)
[2025-05-17 20:00] VITALS: PULSE 77; RESP 17; O2SAT 95
[2025-05-17 21:18] VITALS: BP 101/59; PULSE 77; RESP 17; TEMP 36.5; O2SAT 95
[2025-05-17] MEDS: INSULIN GLARGINE (*BKC) 100 UNITS/ML 14 UNITS SUB-Q (21:38)
[2025-05-18] MEDS: VANCOMYCIN 1,500 MG/NS 500 ML 1,500 MG/500 ML BAG 250 MG IVPB (04:44)
[2025-05-18] MEDS: oxyCODONE/ACETAMINOPHEN (*CRX) 5-325 MG TABLET 1 TABLET PO ×3 (04:50→22:29)
[2025-05-18 05:37] VITALS: BP 123/76; PULSE 77; RESP 14; TEMP 36.6; O2SAT 98
[2025-05-18 06:37] LABS: Estimated CRCL calculation 125 ml/min; Estimated Glomerular Filt Rate > 60
[2025-05-18] MEDS: CEFEPIME 2 GM in SODIUM CHLORIDE 0.9% IV 50 ML 100 ML IVPB ×3 (06:50→22:21)
--- NOTE | 2025-05-18 08:11 | P.PNIM_ITS ---
Progress Note: A&P Assessment and Plan (1) Cellulitis of both lower extremities: Code(s): L03.115 - Cellulitis of right lower limb; L03.116 - Cellulitis of left lower limb Status: Acute (2) Essential (primary) hypertension: Code(s): I10 - Essential (primary) hypertension Status: Acute (3) Type 2 diabetes mellitus without complication, without long-term current use of insulin: Code(s): E11.9 - Type 2 diabetes mellitus without complications Status: Acute (4) Diabetic ulcer of both feet: Code(s): E11.621 - Type 2 diabetes mellitus with foot ulcer; L97.519 - Non-pressure chronic ulcer of other part of right foot with unspecified severity; L97.529 - Non-pressure chronic ulcer of other part of left foot with unspecified severity Status: Acute (5) Chronic venous stasis dermatitis of both lower extremities: Code(s): I87.2 - Venous insufficiency (chronic) (peripheral) Status: Acute (6) GERD (gastroesophageal reflux disease): Qualifiers: Esophagitis presence: esophagitis presence not specified Qualified Code(s): K21.9 - Gastro-esophageal reflux disease without esophagitis Code(s): K21.9 - Gastro-esophageal reflux disease without esophagitis Status: Acute Plan Cellulitis lower extremities Wound infection prominent right lower extremity Suspecting osteomyelitis of right foot Right ankle x-ray showed extensive skin thickening dorsum of the foot and anterior margin of the ankle. Periosteal reaction of the distal aspect of the fibula and tibia. These findings are suspicious for underlying osteomyelitis with cellulitis. Radiologist recommends correlation with MRI of the ankle/foot with contrast. Start vancomycin and cefepime Pending right foot MRI Optimize pain management Consult wound care If MRI suggests osteomyelitis, consult orthopedic surgeon for evaluation treatment History of COPD Stable Continue Trelegy Ellipta 1 puff daily a future inhaler use far p.r.n. Essential hypertension, Continue lisinopril and hydrochlorothiazide at home dose Type 2 diabetes Hold glipizide metformin Start Lantus and sliding scale a.c. q.h.s. Subjective Date/time seen: 05/18/25 08:11 Interval history: patient feels comfortable today, pain is well controlled Patient denies abdomen pain nausea vomiting diarrhea chest pain shortness Of breath Exam Narrative: GENERAL: Pleasant, in no acute distress. Well-nourished. - EYES: EOMI. Anicteric. - HENT: Moist mucous membranes. - LUNGS: Clear to auscultation bilateral ly, no wheezing, rhonchi, or rales. - CARDIOVASCULAR: Regular rate and rhyth m. No murmur. No JVD. - ABDOMEN: Soft, non-tender and non-dist ended. No palpable masses. - EXTREMITIES: Bilateral edema. Periphe ral pulses 2+. Non-tender. - NEUROLOGIC: No focal neurological defi cits. CN II-XII grossly intact. - PSYCHIATRIC: Awake, Alert and oriented x 3. Appropriate mood and affect. - SKIN: purulent drainage from his ulcer s of his right lower extremity on wounds circumferential in his right ankle in healed ulcers of his lateral right foot and ankle. left foot and ankle has ulcerations on the ankle and dorsum of the left foot in various stages of healing - LYMPH: No cervical lymphadenopathy. Objective Data Vital Signs Vital Signs: Vital Signs - 24 hr 05/17/25 13:58 05/17/25 20:00 05/17/25 21:18 Temperature 98.7 F 97.7 F Pulse Rate 99 77 77 Respiratory Rate 18 17 17 Blood Pressure 124/75 101/59 L Pulse Oximetry 99 95 95 Oxygen Delivery Room Air 05/18/25 05:37 Temperature 97.8 F Pulse Rate 77 Respiratory Rate 14 Blood Pressure 123/76 Pulse Oximetry 98 Oxygen Delivery Intake/Output Intake/Output: Intake & Output 05/15/25 05/16/25 05/17/25 05/18/25 23:59 23:59 23:59 23:59 Intake Total 3004 950 Output Total 500 650 Balance 2504 300 Meds/Results Medications: Active Medications Generic Name Dose Route Start Last Admin Trade Name Freq PRN Reason Stop Dose Admin Acetaminophen 650 mg 05/17/25 03:55 05/17/25 18:45 Acetaminophen 325 Mg Tablet PO 650 mg Q4H PRN Administration Mild Pain (1-3) or Fever Dextrose 12.5 gm 05/17/25 07:55 Dextrose 50% 25 Gm/50 Ml Syringe IV PUSH PRN PRN Hypoglycemia Protocol Glucagon 1 mg 05/17/25 07:55 Glucagon For Inj 1 Mg Vial IM PRN PRN Hypoglycemia Protocol Glucose 15 gm 05/17/25 07:55 Glucose Oral Gel 15 Gm Of Glucse In 37.5 Gm Tube PO PRN PRN Hypoglycemia Protocol Vancomycin HCl 1,500 mg in 500 mls @ 250 mls/hr 05/17/25 16:00 05/18/25 06:44 Vancomycin 1,500 Mg/Ns 500 Ml IVPB Infused Q12H ELISSA Infusion Dextrose 1,000 mls @ 100 mls/hr 05/17/25 07:55 Dextrose 5% 1,000 Ml IVPB PRN PRN Hypoglycemia Protocol Cefepime HCl 2 gm/ Sodium 50 mls @ 100 mls/hr 05/17/25 12:30 05/18/25 07:20 Chloride IVPB Infused Q8HR [facility]IS[facility] Infusion Insulin Aspart 4 - 8 units 05/17/25 08:00 05/18/25 07:45 Insulin Aspart (*Bkc) 100 Units/Ml SUB-Q Not Given TIDWM [facility] Protocol Insulin Aspart 2 - 4 units 05/17/25 21:00 05/17/25 21:21 Insulin Aspart (*Bkc) 100 Units/Ml SUB-Q Not Given HS [facility] Protocol Insulin Glargine 14 units 05/17/25 21:00 05/17/25 21:38 Insulin Glargine (*Bkc) 100 Units/Ml 0.15 units/kg (14 units) 14 units SUB-Q Administration HS [facility] Ondansetron HCl 4 mg 05/17/25 03:55 Ondansetron Inj 4 Mg/2 Ml Vial IV PUSH Q4H PRN Nausea Oxycodone/Acetaminophen 1 tablet 05/17/25 07:55 05/18/25 04:50 Oxycodone/Acetaminophen (*Crx) 5-325 Mg Tablet PO 1 tablet Q4H PRN Administration Pain Rated 7-10 Radiology Results: ITS Impressions Shoulder X-Ray 05/17/25 07:38 Impression: 1: No acute fracture. Ankle X-Ray 05/17/25 07:43 Impression: 1: Periosteal reaction distal aspect of the tibia and fibula with moderate diffuse soft tissue swelling of the ankle and foot. Skin thickening is present anteriorly overlying the ankle and foot. Consider osteomyelitis in the appropriate clinical setting versus reactive changes secondary to cellulitis. Recommend correlation with MRI with contrast to exclude osteomyelitis. Foot X-Ray 05/17/25 07:43 Impression: 1: Periosteal reaction distal aspect of the tibia and fibula with moderate diffuse soft tissue swelling of the ankle and foot. Skin thickening is present anteriorly overlying the ankle and foot. Consider osteomyelitis in the appropriate clinical setting versus reactive changes secondary to cellulitis. Recommend correlation with MRI with contrast to exclude osteomyelitis. Knee X-Ray 05/17/25 07:45 Impression: 1: No acute fracture. Limited study. 2: Small joint effusion. Labs Labs: Laboratory Results - last 24 hr 05/17/25 05/17/25 05/17/25 11:28 16:21 19:57 Creatinine Estim Creat Clear Calc Estimated GFR POC Capillary Glucose 165 H 132 H 144 H 05/18/25 05/18/25 05/18/25 00:21 05:49 07:29 Creatinine 0.55 L Estim Creat Clear Calc 125 Estimated GFR > 60 POC Capillary Glucose 105 97
[2025-05-18 08:50] LABS: Hematocrit 34.6 % (42.0-52.0); Hemoglobin 10.9 g/dL (14.0-18.0); Mean Corpuscular HGB Conc 31.5 g/dl (32-36); Mean Corpuscular Hemoglobin 26.4 pg (26-34); Mean Corpuscular Volume 83.8 fl (80-100); Platelet Count Result 374 k/mm3 (150-375); Red Blood Count 4.13 M/mm3 (4.6-6.20); White Blood Count 9.2 K/mm3 (4.5-10.0)
[2025-05-18 08:51] LABS: Anion Gap 6 mmol/L (4-12); Blood Urea Nitrogen 11 mg/dL (9-20); Calcium 8.4 mg/dL (8.4-10.2); Carbon Dioxide 22 mmol/L (22-30); Chloride 104 mmol/L (98-107); Estimated CRCL calculation 122 ml/min; Estimated Glomerular Filt Rate > 60; Glucose 99 mg/dL (65-110); Potassium 3.3 mmol/L (3.4-5.0); Sodium 132 mmol/L (137-145)
--- NOTE | 2025-05-18 13:21 | PCRCNOTE ---
TRELOGY INHALER NOT GIVEN AT THIS TIME. MED IS NOT UP FROM PHARMACY YET AND PT. IS OFF THE FLOOR FOR TESTING.
[2025-05-18] MEDS: POTASSIUM CHLORIDE 20 MEQ ER TABLET 40 MEQ PO (13:43)
[2025-05-18] MEDS: GABAPENTIN 300 MG CAPSULE 600 MG PO ×2 (13:43→17:34)
[2025-05-18] MEDS: ASPIRIN 81 MG CHEWABLE TABLET PO (13:43)
[2025-05-18 14:00] VITALS: BP 134/82; PULSE 82; RESP 17; TEMP 36.6; O2SAT 100
[2025-05-18] MEDS: VANCOMYCIN 2,000 MG/NS 500 ML 2,000 MG/500 ML BAG 125 MG IVPB (17:34)
[2025-05-18 20:00] VITALS: PULSE 78; RESP 16; O2SAT 97
[2025-05-18] MEDS: INSULIN GLARGINE (*BKC) 100 UNITS/ML 14 UNITS SUB-Q (21:03)
[2025-05-18] MEDS: ATORVASTATIN 20 MG TABLET PO (21:05)
[2025-05-18 22:00] VITALS: BP 103/61; PULSE 78; RESP 16; TEMP 36.1; O2SAT 97
[2025-05-19] MEDS: ACETAMINOPHEN 325 MG TABLET 650 MG PO (01:53)
[2025-05-19] MEDS: CEFEPIME 2 GM in SODIUM CHLORIDE 0.9% IV 50 ML 100 ML IVPB ×3 (05:24→22:59)
[2025-05-19 06:00] VITALS: BP 126/65; PULSE 77; RESP 16; TEMP 36.4; O2SAT 99
[2025-05-19] MEDS: VANCOMYCIN 2,000 MG/NS 500 ML 2,000 MG/500 ML BAG 125 MG IVPB ×2 (06:46→17:49)
[2025-05-19 06:48] LABS: Estimated CRCL calculation 139 ml/min; Estimated Glomerular Filt Rate > 60
[2025-05-19 07:58] VITALS: PULSE 82; RESP 18
[2025-05-19] MEDS: FLUTICASONE/UMECLIDIN/VILANTER 200-62.5-25 MCG ELLIPTA 1 PUFF INHALATION (07:58)
[2025-05-19] MEDS: ASPIRIN 81 MG CHEWABLE TABLET PO (08:56)
[2025-05-19] MEDS: GABAPENTIN 300 MG CAPSULE 600 MG PO ×3 (08:56→17:48)
--- NOTE | 2025-05-19 09:57 | PC.NURSE ---
This nurse attempted to reach out to Dr. Mckeon at extension [phone] to ask about MRI results of L foot. The MRI taken of his L foot says in the impression: No lesion suspicious for osteomyelitis in the RIGHT hind ankle or foot. This nurse wanted to clarify that with Dr. Mckeon as the MRI should of been of his left foot, not right foot. Message left for provider with information and how to call this nurse back.
[2025-05-19] MEDS: LORazepam INJ (*CRX) 2 MG/ML VIAL 0.5 MG IV PUSH (12:41)
--- NOTE | 2025-05-19 13:40 | P.PNIM_ITS ---
Progress Note: A&P Assessment and Plan (1) Cellulitis of both lower extremities: Code(s): L03.115 - Cellulitis of right lower limb; L03.116 - Cellulitis of left lower limb Status: Acute (2) Essential (primary) hypertension: Code(s): I10 - Essential (primary) hypertension Status: Acute (3) Type 2 diabetes mellitus without complication, without long-term current use of insulin: Code(s): E11.9 - Type 2 diabetes mellitus without complications Status: Acute (4) Diabetic ulcer of both feet: Code(s): E11.621 - Type 2 diabetes mellitus with foot ulcer; L97.519 - Non-pressure chronic ulcer of other part of right foot with unspecified severity; L97.529 - Non-pressure chronic ulcer of other part of left foot with unspecified severity Status: Acute (5) Chronic venous stasis dermatitis of both lower extremities: Code(s): I87.2 - Venous insufficiency (chronic) (peripheral) Status: Acute (6) GERD (gastroesophageal reflux disease): Qualifiers: Esophagitis presence: esophagitis presence not specified Qualified Code(s): K21.9 - Gastro-esophageal reflux disease without esophagitis Code(s): K21.9 - Gastro-esophageal reflux disease without esophagitis Status: Acute Plan # Cellulitis lower extremities Wound infection prominent right lower extremity Suspecting osteomyelitis of right foot Right ankle x-ray showed extensive skin thickening dorsum of the foot and anterior margin of the ankle. Periosteal reaction of the distal aspect of the fibula and tibia. These findings are suspicious for underlying osteomyelitis with cellulitis. Left ankle/foot: Periosteal reaction distal aspect of the tibia and fibula with moderate diffuse soft tissue swelling of the ankle and foot. Skin thickening is present anteriorly overlying the ankle and foot. Consider osteomyelitis in the appropriate clinical setting versus reactive changes secondary to cellulitis. Recommend MRI Started on vancomycin and cefepime Foot MRI left with chronic periosteal reaction along the distal meta for diet 5 still regions of the tibia and fibula without associated marrow signals changes which could be due to chronic venous stasis or potentially hypertrophic pulmonary osteoarthropathy. No lesions suspicious for osteomyelitis of the right hindfoot/ankle. Sub chondral edema like signal change and enhancement without cortical erosions are loss of T1 marrow to indicate osteomyelitis at the ankle subtalar talonavicular and calcaneocuboid joint which could be due to osteoarthritis, inflammatory arthritis complex regional pain syndrome. Optimize pain management Consult wound care If MRI suggests osteomyelitis, consult orthopedic surgeon for evaluation treatment Recent arterial duplex with mild infrapopliteal peripheral vascular disease noted. Knee arthritis with some contractures lower extremities History of COPD Stable Continue Trelegy Ellipta 1 puff daily a future inhaler use far p.r.n. Essential hypertension, Continue lisinopril and hydrochlorothiazide at home dose Type 2 diabetes Hold glipizide metformin Start Lantus and sliding scale a.c. q.h.s. Subjective Date/time seen: 05/19/25 13:40 Interval history: States he is not able to extend his knee because of pain and also stiffness and contracture this has been ongoing since past 4-6 weeks remains afebrile. Going for right foot MRI Review of Systems Review of Systems: All systems reviewed & are unremarkable except as noted in HPI and below Exam Narrative: GENERAL: Pleasant, in no acute distress. Well-nourished. - EYES: EOMI. Anicteric. - HENT: Moist mucous membranes. - LUNGS: Clear to auscultation bilateral ly, no wheezing, rhonchi, or rales. - CARDIOVASCULAR: Regular rate and rhyth m. No murmur. No JVD. - ABDOMEN: Soft, non-tender and non-dist ended. No palpable masses. - EXTREMITIES: No edema. Peripheral pul ses 2+. Non-tender. - NEUROLOGIC: No focal neurological defi cits. CN II-XII grossly intact. - PSYCHIATRIC: Awake, Alert and oriented x 3. Appropriate mood and affect. - SKIN: Ulcers of his right and left lo wer extremity on wounds circumferential in his right ankle in healed ulcers of his lateral right foot and ankle. left foot and ankle has ulcerations on the ankle and dorsum of the left foot in various stages of healing with surrounding erythema - LYMPH: No cervical lymphadenopathy. Objective Data Vital Signs Vital Signs: Vital Signs - 24 hr 05/18/25 14:00 05/18/25 20:00 05/18/25 22:00 Temperature 97.9 F 97.0 F L Pulse Rate 82 78 78 Respiratory Rate 17 16 16 Blood Pressure 134/82 103/61 Pulse Oximetry 100 97 97 Oxygen Delivery Room Air 05/19/25 06:00 05/19/25 07:58 05/19/25 08:00 Temperature 97.6 F Pulse Rate 77 82 Respiratory Rate 16 18 Blood Pressure 126/65 Pulse Oximetry 99 Oxygen Delivery Room Air Intake/Output Intake/Output: Intake & Output 05/16/25 05/17/25 05/18/25 05/19/25 23:59 23:59 23:59 23:59 Intake Total 3004 2270 840 Output Total 500 1750 1400 Balance 2504 520 -560 Meds/Results Medications: Active Medications Generic Name Dose Route Start Last Admin Trade Name Freq PRN Reason Stop Dose Admin Acetaminophen 650 mg 05/17/25 03:55 05/19/25 01:53 Acetaminophen 325 Mg Tablet PO 650 mg Q4H PRN Administration Mild Pain (1-3) or Fever Albuterol 2.5 mg 05/18/25 13:00 Albuterol Sulfate Neb 2.5 Mg/3 Ml Inh INHALATION Q4HRT PRN Shortness Of Breath Aspirin 81 mg 05/18/25 13:00 05/19/25 08:56 Aspirin 81 Mg Chewable Tablet PO 81 mg DAILY@0800 ELISSA Administration Atorvastatin Calcium 20 mg 05/18/25 21:00 05/18/25 21:05 Atorvastatin 20 Mg Tablet PO 20 mg HS ELISSA Administration Dextrose 12.5 gm 05/17/25 07:55 Dextrose 50% 25 Gm/50 Ml Syringe IV PUSH PRN PRN Hypoglycemia Protocol Diclofenac Sodium 1 applic 05/18/25 18:21 Diclofenac Sodium 1% 100 Gm Gel (*Bkc) TOPICAL QID PRN Muscle/Joint Pain Fluticasone/Umeclidinium/Vilanterol 1 puff 05/18/25 13:05 05/19/25 07:58 Fluticasone/Umeclidin/Vilanter 200-62.5-25 Mcg Ellipta INHALATION 1 puff DAILYRT ELISSA Administration Gabapentin 600 mg 05/18/25 13:00 05/19/25 12:07 Gabapentin 300 Mg Capsule PO 600 mg TID ELISSA Administration Glucagon 1 mg 05/17/25 07:55 Glucagon For Inj 1 Mg Vial IM PRN PRN Hypoglycemia Protocol Glucose 15 gm 05/17/25 07:55 Glucose Oral Gel 15 Gm Of Glucse In 37.5 Gm Tube PO PRN PRN Hypoglycemia Protocol Dextrose 1,000 mls @ 100 mls/hr 05/17/25 07:55 Dextrose 5% 1,000 Ml IVPB PRN PRN Hypoglycemia Protocol Cefepime HCl 2 gm/ Sodium 50 mls @ 100 mls/hr 05/17/25 12:30 05/19/25 05:54 Chloride IVPB Infused Q8HR [facility] Infusion Vancomycin HCl 2,000 mg in 500 mls @ 250 mls/hr 05/18/25 18:00 05/19/25 06:46 Vancomycin 2,000 Mg/Ns 500 Ml IVPB 125 mls/hr Q12H [facility]IS[facility] Administration Insulin Aspart 4 - 8 units 05/17/25 08:00 05/19/25 12:07 Insulin Aspart (*Bkc) 100 Units/Ml SUB-Q Not Given TIDWM [facility] Protocol Insulin Aspart 2 - 4 units 05/17/25 21:00 05/18/25 21:03 Insulin Aspart (*Bkc) 100 Units/Ml SUB-Q Not Given HS [facility] Protocol Insulin Glargine 14 units 05/17/25 21:00 05/18/25 21:03 Insulin Glargine (*Bkc) 100 Units/Ml 0.15 units/kg (14 units) 14 units SUB-Q Administration [facility] Lisinopril 10 mg 05/18/25 13:05 05/19/25 08:56 Lisinopril 10 Mg Tablet PO 10 mg DAILY [facility] Administration Ondansetron HCl 4 mg 05/17/25 03:55 Ondansetron Inj 4 Mg/2 Ml Vial IV PUSH Q4H PRN Nausea Oxycodone/Acetaminophen 1 tablet 05/17/25 07:55 05/18/25 22:29 Oxycodone/Acetaminophen (*Crx) 5-325 Mg Tablet PO 1 tablet Q4H PRN Administration Pain Rated 7-10 Radiology Results: ITS Impressions Shoulder X-Ray 05/17/25 07:38 Impression: 1: No acute fracture. Ankle X-Ray 05/17/25 07:43 Impression: 1: Periosteal reaction distal aspect of the tibia and fibula with moderate diffuse soft tissue swelling of the ankle and foot. Skin thickening is present anteriorly overlying the ankle and foot. Consider osteomyelitis in the appropriate clinical setting versus reactive changes secondary to cellulitis. Recommend correlation with MRI with contrast to exclude osteomyelitis. Foot X-Ray 05/17/25 07:43 Impression: 1: Periosteal reaction distal aspect of the tibia and fibula with moderate diffuse soft tissue swelling of the ankle and foot. Skin thickening is present anteriorly overlying the ankle and foot. Consider osteomyelitis in the appropriate clinical setting versus reactive changes secondary to cellulitis. Recommend correlation with MRI with contrast to exclude osteomyelitis. Knee X-Ray 05/17/25 07:45 Impression: 1: No acute fracture. Limited study. 2: Small joint effusion. Foot MRI 05/18/25 18:36 IMPRESSION: 1. Chronic periosteal reaction along the distal metadiaphyseal regions of the tibia and fibula without associated marrow signal changes which could be due to chronic venous stasis or potentially hypertrophic pulmonary osteoarthropathy. No lesion suspicious for osteomyelitis in the right hind foot or ankle. 2. Subchondral edema-like signal change and enhancement without cortical erosions, loss of T1 marrow fat signal more joint effusions to suggest osteomye litis at the ankle, subtalar, talonavicular and calcaneocuboid joints which could be due to osteoarthritis, inflammatory arthritis, complex regional pain syndrome or transient osteoporosis. 3. Mild tendinopathy and longitudinal split tears of the peroneus longus and brevis tendons with mild associated tenosynovitis. Labs Labs: Laboratory Results - last 24 hr 05/18/25 05/18/25 05/18/25 14:52 16:18 19:59 Creatinine Estim Creat Clear Calc Estimated GFR POC Capillary Glucose 135 H 139 H Vancomycin Trough 8.8 L 05/19/25 05/19/25 05/19/25 05:46 07:59 11:45 Creatinine 0.49 L Estim Creat Clear Calc 139 Estimated GFR > 60 POC Capillary Glucose 106 H 134 H Vancomycin Trough
[2025-05-19 14:00] VITALS: BP 115/70; PULSE 82; RESP 18; TEMP 36.3; O2SAT 100
--- NOTE | 2025-05-19 16:01 | P.CONGS_ITS ---
Assessment and Plan Assessment and plan (1) Diabetic ulcer of both feet: Code(s): E11.621 - Type 2 diabetes mellitus with foot ulcer; L97.519 - Non-pressure chronic ulcer of other part of right foot with unspecified severity; L97.529 - Non-pressure chronic ulcer of other part of left foot with unspecified severity Status: Acute Assessment and Plan: Patient presented 2 days ago with multiple diabetic ulcers to bilateral lower extremities and feet. He was previously seen at a hospital in [place] and treated with surgical debridement. He was discharged from there roughly 2 weeks ago. He follows with Dr. douglass who suggested that he come to the hospital to be evaluated. Physical exam today shows multiple superficial ulcers with a red granulation tissue present throughout majority of each. No purulence or fluctuance noted today. No black or darkened skin suggestive of necrosis. X- rays obtained of bilateral feet were suggestive of possible osteomyelitis. MRI of left foot obtained yesterday demonstrating chronic changes. Not likely osteomyelitis. Changes likely due to venous stasis or hypertrophic pulmonary osteoarthropathy. Right foot MRI obtained today. Official radiology read still pending. No surgical intervention planned for today, as these wounds appear fairly superficial and likely would not benefit from any debridement. Discussed less likely possibility of amputation with patient if osteo was detected on MRI, and patient was very adamant that he not undergo amputation. We will follow up with results from left foot MRI, and treat accordingly. Continue daily wound care. Gently washing bilateral ankles and feet with soap and water. Apply Hydrofera Blue foam pads to all the wounds and cover with ABD pads and wrapped with Kerlix. Apply Tubigrip compression sleeves to the bilateral lower legs and feet. Patient should have a feet elevated at all times except for meals. (2) Chronic venous stasis dermatitis of both lower extremities: Code(s): I87.2 - Venous insufficiency (chronic) (peripheral) Status: Acute (3) Type 2 diabetes mellitus without complication, without long-term current use of insulin: Code(s): E11.9 - Type 2 diabetes mellitus without complications Status: Acute History of Present Illness Consult details Consult date: 05/19/25 Reason for consult: other (Foot osteomyelitis/chronic ulcers) Requesting physician: Anders Parmar MD Narrative: Patient is a 64 year with history of peripheral vascular disease, diabetes mellitus type 2, hypertension, hyperlipidemia who I have been asked to see in surgical consultation for foot osteomyelitis/chronic ulcers. Patient presented to the ED 2 days ago for infected wounds and ulcers of his bilateral lower extremities. He also complained of immobility to his legs and concerns with walking. 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 Patient recalls requiring IV antibiotics and surgical debridement. Patient currently resides here in [place]. He was discharged back [place] almost 2 weeks ago. He follows with Dr. Douglass as his PCP. Patient has been having trouble ambulating as he feels he has restricted range of motion and stiffness in his left knee. The symptoms were however going on before his previous hospitalization. 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 WBC was 9.2 yesterday, down from 11.2 previously. Foot x-rays were obtained upon admission on 05/17. Right foot with extensive skin thickening to the dorsum of the foot and anterior margin of the ankle. Periosteal reaction of the distal aspect of the fibula and tibia. Findings suspicious for underlying osteomyelitis with cellulitis. Left foot with periosteal reaction to the distal aspect of the tibia and fibula with moderate diffuse soft tissue swelling of the ankle and foot. Skin thickening present anteriorly overlying the ankle and foot. Consider osteomyelitis versus reactive changes secondary to cellulitis. MRI of the left foot obtained yesterday and demonstrated chronic periosteal reaction along the distal metadiaphyseal region of the tibia and fibula without associated marrow signal changes which could be due to chronic venous stasis or hypertrophic pulmonary osteoarthropathy. No lesions suspicious for osteomyelitis in the right hindfoot or ankle. Subchondral edema like signal change in enhancement without cortical erosions, loss of T1 marrow fat signal more joint effusions to suggest osteomyelitis at the ankles, subtalar, talonavicular and calcaneocuboid joints which could be due to osteoarthritis, inflammatory arthritis, complex regional pain syndrome or transient osteoporosis. Mild tendinopathy longitudinal split tears of the peroneus longus and brevis tendons with mild associated tenosynovitis. Right foot MRI still pending. Patient is currently on vancomycin and cefepime IV. [facility] Past Medical History Medical History Arthritis Asthma Bronchitis Chronic right shoulder pain Chronic skin ulcer of lower leg Dyslipidemia Dyspnea Effusion, left elbow Elevated serum alkaline phosphatase level Essential (primary) hypertension GERD (gastroesophageal reflux disease) Headache Hemorrhoids Hypertension Hyponatremia Jaundice Neutrophilic leukocytosis PVD (peripheral vascular disease) Rheumatoid arthritis with positive rheumatoid factor SOB (shortness of breath) on exertion Thrombocytosis Type 2 diabetes mellitus without complication, without long-term current use of insulin Family History Family History Other Diabetes mellitus Family history of lung cancer Hypertension Social History Social History Smoking status: Former smoker Tobacco type: cigarettes Second hand tobacco smoke exposure: No Smoking end date: 10/26/12 Alcohol intake: never Substance use: never Substance use type: does not use Do You Feel Safe in your Home?: Yes Lack of Transportation: No Lack of Food: Never True Current Housing: I Have Housing Concerned About Future Housing: YES Difficulty Paying Gas/Electric Bills: No Difficulty Paying for Meds: No Currently Unemployed: No Education: High School Diploma/GED Difficulty w/ Childcare or Family Care: No Living arrangements: with family Gender identity (if verbalized by the patient): Male Sexual Orientation (if Verbalized by the Patient): Straight or Heterosexual Spiritual care concerns: No Agree to blood products: Yes Meds Home Medications and Allergies Home Medications ?Medication ?Instructions ?Recorded ?Confirmed ?Type fluticasone fur. 200 mcg-umeclid 1 inh inhalation DAILY #28 ea 04/01/22 05/17/25 Rx 62.5 mcg-vilant 25 mcg inhalat.powder (Trelegy Ellipta) albuterol sulfate 90 mcg/actuation 2 inh inhalation Q4H PRN shortness 03/07/24 05/17/25 Rx aerosol inhaler of breath or wheezing #8.5 grams silver sulfadiazine 1 % topical 1 applic topical BID #400 grams 07/26/24 05/17/25 Rx cream folic acid 1 mg tablet See Rx Instructions .Route 09/08/24 05/17/25 Rx .COMPLEX #90 tabs aspirin 81 mg tablet,delayed 81 mg PO DAILY #90 tabs 09/09/24 05/17/25 Rx release atorvastatin 20 mg tablet See Rx Instructions .Route 09/09/24 05/17/25 Rx .COMPLEX #90 tabs glipizide 5 mg tablet 5 mg PO DAILY #90 tabs 09/09/24 05/17/25 Rx lisinopril 10 mg tablet 10 mg PO DAILY #90 tabs 12/08/24 05/17/25 Rx gabapentin 300 mg capsule See Rx Instructions .Route 03/09/25 05/17/25 Rx .COMPLEX #540 caps meloxicam 15 mg tablet 15 mg PO DAILY 05/17/25 05/17/25 History metformin 500 mg tablet,extended 2,000 mg PO DAILY 05/17/25 05/17/25 History release 24 hr Allergies Allergy/AdvReac Type Severity Reaction Status Date / Time No Known Allergies Allergy Mild Verified 05/17/25 06:45 Vital Signs Vital Signs - 24 hr 05/18/25 20:00 05/18/25 22:00 05/19/25 06:00 Temperature 97.0 F L 97.6 F Pulse Rate 78 78 77 Respiratory Rate 16 16 16 Blood Pressure 103/61 126/65 Pulse Oximetry 97 97 99 Oxygen Delivery Room Air 05/19/25 07:58 05/19/25 08:00 05/19/25 14:00 Temperature 97.4 F L Pulse Rate 82 82 Respiratory Rate 18 18 Blood Pressure 115/70 Pulse Oximetry 100 Oxygen Delivery Room Air Exam 2 Const: General: comfortable and no acute distress Eyes: General: appearance normal, both eyes and all related structures Neck: Neck: supple Resp: Effort & Inspection: normal respiratory effort Cardio: Rate: regular rate Skin: General skin exam: normal color Extrem: Ankle/foot/toe images: 1. 2. 3. 4. 5. Other: Venous stasis dermatitis of both legs, ulcerations in various forms in stages of healing. Red granulation tissue throughout majority of each wound. No purulence detected upon today's exam. No tenderness to palpation. No black darkened eschar. Right calf with ulceration to posterior lateral side and posterior medial aspect that is near circumferential. Left foot with wound to dorsum of foot. Wounds to medial and lateral aspects of the ankle. Sensation and movement intact to bilateral toes. Difficult to appreciate distal pulses with chronic PVD changes to skin. No surrounding redness or edema to suggest cellulitis. Periwound tissue is slightly purple, but likely due to arterial insufficiency. Results Labs 05/18/25 05:50 05/19/25 05:46 Labs: Abnormal lab results 05/18/25 05/18/25 05/18/25 Range/Units 14:52 16:18 19:59 Creatinine (0.7-1.3) mg/dL POC Capillary Glucose 135 H 139 H (65-105) mg/dl Vancomycin Trough 8.8 L (10.0-20.0) ug/mL 05/19/25 05/19/25 05/19/25 Range/Units 05:46 07:59 11:45 Creatinine 0.49 L (0.7-1.3) mg/dL POC Capillary Glucose 106 H 134 H (65-105) mg/dl Vancomycin Trough (10.0-20.0) ug/mL Diabetes panel 05/19/25 Range/Units 05:46 Creatinine 0.49 L (0.7-1.3) mg/dL Pituitary panel 05/19/25 Range/Units 05:46 Creatinine 0.49 L (0.7-1.3) mg/dL Adrenal panel 05/19/25 Range/Units 05:46 Creatinine 0.49 L (0.7-1.3) mg/dL All other labs normal.
[2025-05-19] MEDS: INSULIN GLARGINE (*BKC) 100 UNITS/ML 14 UNITS SUB-Q (21:50)
[2025-05-19] MEDS: oxyCODONE/ACETAMINOPHEN (*CRX) 5-325 MG TABLET 1 TABLET PO (21:51)
[2025-05-19] MEDS: ATORVASTATIN 20 MG TABLET PO (21:51)
[2025-05-19 22:00] VITALS: BP 114/53; PULSE 92; RESP 16; TEMP 37.2; O2SAT 99
[2025-05-19 22:18] VITALS: O2SAT 99
[2025-05-20] MEDS: GABAPENTIN 300 MG CAPSULE 600 MG PO ×4 (00:13→17:10)
[2025-05-20] MEDS: oxyCODONE/ACETAMINOPHEN (*CRX) 5-325 MG TABLET 1 TABLET PO ×4 (01:33→21:01)
[2025-05-20] MEDS: MORPHINE SULFATE (*CRX) 2 MG/ML INJ IV PUSH (03:03)
[2025-05-20] MEDS: CEFEPIME 2 GM in SODIUM CHLORIDE 0.9% IV 50 ML 100 ML IVPB ×3 (05:02→21:03)
[2025-05-20 05:33] LABS: Hematocrit 34.7 % (42.0-52.0); Hemoglobin 10.8 g/dL (14.0-18.0); Immature Granulocyte Percent A 0.6 % (0-0.5); Lymphocytes Absolute Auto 1.47 K/mm3 (0.9-3.2); Mean Corpuscular HGB Conc 31.1 g/dl (32-36); Mean Corpuscular Hemoglobin 26.3 pg (26-34); Mean Corpuscular Volume 84.4 fl (80-100); Nucleated Red Blood Cells Absolute Auto 0.000 K/mm3 (0.0-0.012); Nucleated Red Blood Cells Perc 0.0 % (0.0-0.2); Platelet Count Result 389 k/mm3 (150-375); Red Blood Count 4.11 M/mm3 (4.6-6.20); White Blood Count 9.6 K/mm3 (4.5-10.0)
[2025-05-20 05:42] LABS: Alanine Aminotransferase 17 U/L (6-50); Albumin Level 2.9 g/dL (3.5-5.1); Alkaline Phosphatase 72 U/L (38-126); Anion Gap 6 mmol/L (4-12); Aspartate Amino Transferase 26 U/L (17-59); Bilirubin,Total 0.2 mg/dL (0.2-1.3); Blood Urea Nitrogen 10 mg/dL (9-20); Calcium 8.8 mg/dL (8.4-10.2); Carbon Dioxide 25 mmol/L (22-30); Chloride 101 mmol/L (98-107); Estimated CRCL calculation 134 ml/min; Estimated Glomerular Filt Rate > 60; Glucose 146 mg/dL (65-110); Magnesium 1.5 mg/dL (1.6-2.3); Potassium 3.7 mmol/L (3.4-5.0); Sodium 132 mmol/L (137-145); Total Protein 6.0 g/dL (6.3-8.2)
[2025-05-20 05:51] VITALS: BP 132/74; PULSE 98; RESP 16; TEMP 36.4; O2SAT 96
[2025-05-20] MEDS: VANCOMYCIN 1,750 MG/NS 500 ML 1,750 MG/500 ML BAG 125 MG IVPB ×3 (06:25→22:06)
[2025-05-20] MEDS: FLUTICASONE/UMECLIDIN/VILANTER 200-62.5-25 MCG ELLIPTA 1 PUFF INHALATION (07:40)
[2025-05-20 08:00] VITALS: PULSE 98; RESP 16; O2SAT 96
[2025-05-20] MEDS: FOLIC ACID 1 MG TABLET PO (09:49)
[2025-05-20] MEDS: MELOXICAM 7.5 MG TABLET 15 MG PO (09:49)
[2025-05-20] MEDS: ASPIRIN 81 MG CHEWABLE TABLET PO (09:49)
--- NOTE | 2025-05-20 11:41 | PM.IMPN ---
Progress Note: A&P Assessment and Plan (1) Cellulitis of both lower extremities: Code(s): L03.115 - Cellulitis of right lower limb; L03.116 - Cellulitis of left lower limb Status: Acute (2) Essential (primary) hypertension: Code(s): I10 - Essential (primary) hypertension Status: Acute (3) Type 2 diabetes mellitus without complication, without long-term current use of insulin: Code(s): E11.9 - Type 2 diabetes mellitus without complications Status: Acute (4) Diabetic ulcer of both feet: Code(s): E11.621 - Type 2 diabetes mellitus with foot ulcer; L97.519 - Non-pressure chronic ulcer of other part of right foot with unspecified severity; L97.529 - Non-pressure chronic ulcer of other part of left foot with unspecified severity Status: Acute (5) Chronic venous stasis dermatitis of both lower extremities: Code(s): I87.2 - Venous insufficiency (chronic) (peripheral) Status: Acute (6) GERD (gastroesophageal reflux disease): Qualifiers: Esophagitis presence: esophagitis presence not specified Qualified Code(s): K21.9 - Gastro-esophageal reflux disease without esophagitis Code(s): K21.9 - Gastro-esophageal reflux disease without esophagitis Status: Acute Plan # Cellulitis lower extremities Wound infection prominent right lower extremity Suspecting osteomyelitis of right foot Right ankle x-ray showed extensive skin thickening dorsum of the foot and anterior margin of the ankle. Periosteal reaction of the distal aspect of the fibula and tibia. These findings are suspicious for underlying osteomyelitis with cellulitis. Left ankle/foot: Periosteal reaction distal aspect of the tibia and fibula with moderate diffuse soft tissue swelling of the ankle and foot. Skin thickening is present anteriorly overlying the ankle and foot. Consider osteomyelitis in the appropriate clinical setting versus reactive changes secondary to cellulitis. Recommend MRI Started on vancomycin and cefepime Foot MRI left with chronic periosteal reaction along the distal meta for diet 5 still regions of the tibia and fibula without associated marrow signals changes which could be due to chronic venous stasis or potentially hypertrophic pulmonary osteoarthropathy. No lesions suspicious for osteomyelitis of the right hindfoot/ankle. Sub chondral edema like signal change and enhancement without cortical erosions or loss of T1 marrow to indicate osteomyelitis at the ankle were not present subtalar talonavicular and calcaneocuboid joint which could be due to osteoarthritis, inflammatory arthritis complex regional pain syndrome. foot MRI Right 1. Relatively symmetric appearance of chronic periosteal reaction along the distal metadiaphyseal regions of the tibia and fibula without associated marrow signal changes and with similarly symmetric skin thickening at the ankle and dorsum of the hindfoot as seen at the contralateral foot and ankle should be most consistent with changes of chronic venous stasis with likely venous stasis ulcer at the medial aspect of the distal right lower leg. Differential for the periosteal reaction would include less likely hypertrophic pulmonary osteoarthropathy. No abscess or lesion suspicious for osteomyelitis in the right hind foot or ankle. 2. Subchondral edema-like signal change and enhancement without cortical erosions, loss of T1 marrow fat signal without joint effusions at the right ankle, subtalar, talonavicular and calcaneocuboid joints similar to that previously seen at the left foot and ankle which could be due to osteoarthritis, inflammatory arthritis, transient osteoporosis or less likely complex regional pain syndrome. 3. Mild right Achilles tendinosis and mild peritendinitis. overall negative for osteomyelitis. continue vancomycin and cefepime. get wound cutlure. recent culture with psuedomonas that was treated wt cefepime [facility] pain management Consult wound care Recent arterial duplex with mild infrapopliteal peripheral vascular disease noted. Knee arthritis with some contractures lower extremities left shoulder pain: restricted ROM. xray shoulder with subluxation likely due to rotator cuff tear. PT OT History of COPD Stable Continue Trelegy Ellipta 1 puff daily a future inhaler use far p.r.n. Essential hypertension, Continue lisinopril and hydrochlorothiazide at home dose Type 2 diabetes Hold glipizide metformin Start Lantus and sliding scale a.c. q.h.s. dispotion: likely needs rehab placement Subjective Date/time seen: 05/20/25 11:41 Interval history: no overnight events, no nausea, vomtiing. pain in legs reproted. he also reports left shoulder pain and restricted rom since past 3 weeks. no obvious injury Review of Systems Review of Systems: All systems reviewed & are unremarkable except as noted in HPI and below Exam Narrative: GENERAL: Pleasant, in no acute distress. Well-nourished. - EYES: EOMI. Anicteric. - HENT: Moist mucous membranes. - LUNGS: Clear to auscultation bilaterally, no wheezing, rhonchi, or rales. - CARDIOVASCULAR: Regular rate and rhythm. No murmur. No JVD. - ABDOMEN: Soft, non-tender and non-distended. No palpable masses. - EXTREMITIES: No edema. Peripheral pulses 2+. Non-tender. left shouler restrted ROM - NEUROLOGIC: No focal neurological deficits. CN II-XII grossly intact. - PSYCHIATRIC: Awake, Alert and oriented x 3. Appropriate mood and affect. - SKIN: Ulcers of his right and left lower extremity on wounds circumferential in his right ankle in healed ulcers of his lateral right foot and ankle. left foot and ankle has ulcerations on the ankle and dorsum of the left foot in various stages of healing with surrounding erythema - LYMPH: No cervical lymphadenopathy. Objective Data Vital Signs Vital Signs: Vital Signs - 24 hr 05/19/25 14:00 05/19/25 15:55 05/19/25 20:00 Temperature 97.4 F L Pulse Rate 82 Respiratory Rate 18 Blood Pressure 115/70 Pulse Oximetry 100 Oxygen Delivery Room Air Room Air 05/19/25 22:00 05/19/25 22:18 05/20/25 05:51 Temperature 99.0 F 97.6 F Pulse Rate 92 98 Respiratory Rate 16 16 Blood Pressure 114/53 L 132/74 Pulse Oximetry 99 99 96 Oxygen Delivery Room Air Intake/Output Intake/Output: Intake & Output 05/17/25 05/18/25 05/19/25 05/20/25 23:59 23:59 23:59 23:59 Intake Total 3004 2270 1920 540 Output Total 500 1750 1700 800 Balance 2504 520 220 -260 Meds/Results Medications: Active Medications Generic Name Dose Route Start Last Admin Trade Name Freq PRN Reason Stop Dose Admin Acetaminophen 650 mg 05/17/25 03:55 05/19/25 01:53 Acetaminophen 325 Mg Tablet PO 650 mg Q4H PRN Administration Mild Pain (1-3) or Fever Albuterol 2.5 mg 05/18/25 13:00 Albuterol Sulfate Neb 2.5 Mg/3 Ml Inh INHALATION Q4HRT PRN Shortness Of Breath Albuterol 2 puff 05/19/25 13:40 Albuterol Sulfate (*Sp) Aerosol 1 Puff INHALATION Q4H PRN shortness of breath or wheezing Aspirin 81 mg 05/18/25 13:00 05/20/25 09:49 Aspirin 81 Mg Chewable Tablet PO 81 mg DAILY@0800 ELISSA Administration Atorvastatin Calcium 20 mg 05/18/25 21:00 05/19/25 21:51 Atorvastatin 20 Mg Tablet PO 20 mg HS ELISSA Administration Dextrose 12.5 gm 05/17/25 07:55 Dextrose 50% 25 Gm/50 Ml Syringe IV PUSH PRN PRN Hypoglycemia Protocol Diclofenac Sodium 1 applic 05/18/25 18:21 Diclofenac Sodium 1% 100 Gm Gel (*Bkc) TOPICAL QID PRN Muscle/Joint Pain Fluticasone/Umeclidinium/Vilanterol 1 puff 05/18/25 13:05 05/20/25 07:40 Fluticasone/Umeclidin/Vilanter 200-62.5-25 Mcg Ellipta INHALATION 1 puff DAILYRT ELISSA Administration Folic Acid 1 mg 05/20/25 09:00 05/20/25 09:49 Folic Acid 1 Mg Tablet PO 1 mg DAILY ELISSA Administration Gabapentin 600 mg 05/18/25 13:00 05/20/25 09:48 Gabapentin 300 Mg Capsule PO 600 mg TID ELISSA Administration Glucagon 1 mg 05/17/25 07:55 Glucagon For Inj 1 Mg Vial IM PRN PRN Hypoglycemia Protocol Glucose 15 gm 05/17/25 07:55 Glucose Oral Gel 15 Gm Of Glucse In 37.5 Gm Tube PO PRN PRN Hypoglycemia Protocol Dextrose 1,000 mls @ 100 mls/hr 05/17/25 07:55 Dextrose 5% 1,000 Ml IVPB PRN PRN Hypoglycemia Protocol Cefepime HCl 2 gm/ Sodium 50 mls @ 100 mls/hr 05/17/25 12:30 05/20/25 05:02 Chloride IVPB 100 mls/hr Q8HR ELISSA Administration Vancomycin HCl 1,750 mg in 500 mls @ 250 mls/hr 05/20/25 06:00 05/20/25 06:25 Vancomycin 1,750 Mg/Ns 500 Ml IVPB 125 mls/hr Q8H ELISSA Administration Insulin Aspart 4 - 8 units 05/17/25 08:00 05/20/25 09:47 Insulin Aspart (*Bkc) 100 Units/Ml SUB-Q Not Given TIDWM ELISSA Protocol Insulin Aspart 2 - 4 units 05/17/25 21:00 05/19/25 21:51 Insulin Aspart (*Bkc) 100 Units/Ml SUB-Q Not Given HS [facility] Protocol Insulin Glargine 14 units 05/17/25 21:00 05/19/25 21:50 Insulin Glargine (*Bkc) 100 Units/Ml 0.15 units/kg (14 units) 14 units SUB-Q Administration HS [facility] Lisinopril 10 mg 05/18/25 13:05 05/20/25 09:48 Lisinopril 10 Mg Tablet PO 10 mg DAILY [facility] Administration Meloxicam 15 mg 05/20/25 09:00 05/20/25 09:49 Meloxicam 7.5 Mg Tablet PO 15 mg DAILY [facility] Administration Ondansetron HCl 4 mg 05/17/25 03:55 Ondansetron Inj 4 Mg/2 Ml Vial IV PUSH Q4H PRN Nausea Oxycodone/Acetaminophen 1 tablet 05/17/25 07:55 05/20/25 06:33 Oxycodone/Acetaminophen (*Crx) 5-325 Mg Tablet PO 1 tablet Q4H PRN Administration Pain Rated 7-10 Radiology Results: ITS Impressions Shoulder X-Ray 05/17/25 07:38 Impression: 1: No acute fracture. Ankle X-Ray 05/17/25 07:43 Impression: 1: Periosteal reaction distal aspect of the tibia and fibula with moderate diffuse soft tissue swelling of the ankle and foot. Skin thickening is present anteriorly overlying the ankle and foot. Consider osteomyelitis in the appropriate clinical setting versus reactive changes secondary to cellulitis. Recommend correlation with MRI with contrast to exclude osteomyelitis. Foot X-Ray 05/17/25 07:43 Impression: 1: Periosteal reaction distal aspect of the tibia and fibula with moderate diffuse soft tissue swelling of the ankle and foot. Skin thickening is present anteriorly overlying the ankle and foot. Consider osteomyelitis in the appropriate clinical setting versus reactive changes secondary to cellulitis. Recommend correlation with MRI with contrast to exclude osteomyelitis. Knee X-Ray 05/17/25 07:45 Impression: 1: No acute fracture. Limited study. 2: Small joint effusion. Foot MRI 05/19/25 16:22 IMPRESSION: 1. Relatively symmetric appearance of chronic periosteal reaction along the distal metadiaphyseal regions of the tibia and fibula without associated marrow signal changes and with similarly symmetric skin thickening at the ankle and dorsum of the hindfoot as seen at the contralateral foot and ankle should be most consistent with changes of chronic venous stasis with likely venous stasis ulcer at the medial aspect of the distal right lower leg. Differential for the periosteal reaction would include less likely hypertrophic pulmonary osteoarthropathy. No abscess or lesion suspicious for osteomyelitis in the right hind foot or ankle. 2. Subchondral edema-like signal change and enhancement without cortical erosions, loss of T1 marrow fat signal without joint effusions at the right ankle, subtalar, talonavicular and calcaneocuboid joints similar to that previously seen at the left foot and ankle which could be due to osteoarthritis, inflammatory arthritis, transient osteoporosis or less likely complex regional pain syndrome. 3. Mild right Achilles tendinosis and mild peritendinitis. Labs Labs: Laboratory Results - last 24 hr 05/19/25 05/19/25 05/19/25 11:45 16:41 20:11 WBC RBC Hgb Hct MCV MCH MCHC RDW Plt Count MPV Immature Gran % (Auto) Neut % (Auto) Lymph % (Auto) [place] % (Auto) Eos % (Auto) Baso % (Auto) Lymph # (Auto) [place] # (Auto) Eos # (Auto) Baso # (Auto) Abs Immat Gran (auto) Absolute Neuts (auto) Absolute Nucleated RBC Nucleated RBC % Sodium Potassium Chloride Carbon Dioxide Anion Gap BUN Creatinine Estim Creat Clear Calc Estimated GFR Glucose POC Capillary Glucose 134 H 161 H 147 H Calcium Magnesium Total Bilirubin AST ALT Alkaline Phosphatase Total Protein Albumin Vancomycin Trough 05/20/25 05/20/25 05:21 08:07 WBC 9.6 RBC 4.11 L Hgb 10.8 L Hct 34.7 L MCV 84.4 MCH 26.3 MCHC 31.1 L RDW 14.2 Plt Count 389 H MPV 8.8 Immature Gran % (Auto) 0.6 H Neut % (Auto) 64.2 Lymph % (Auto) 15.2 L [place] % (Auto) 13.4 H Eos % (Auto) 6.2 H Baso % (Auto) 0.4 Lymph # (Auto) 1.47 [place] # (Auto) 1.3 H Eos # (Auto) 0.6 H Baso # (Auto) 0.0 Abs Immat Gran (auto) 0.06 H Absolute Neuts (auto) 6.2 Absolute Nucleated RBC 0.000 Nucleated RBC % 0.0 Sodium 132 L Potassium 3.7 Chloride 101 Carbon Dioxide 25 Anion Gap 6 BUN 10 Creatinine 0.51 L Estim Creat Clear Calc 134 Estimated GFR > 60 Glucose 146 H POC Capillary Glucose 109 H Calcium 8.8 Magnesium 1.5 L Total Bilirubin 0.2 AST 26 ALT 17 Alkaline Phosphatase 72 Total Protein 6.0 L Albumin 2.9 L Vancomycin Trough 12.2
[2025-05-20] MEDS: MAGNESIUM SULF 2 GM/WATER 50ML 2 GM/50 ML BAG IVPB (13:14)
[2025-05-20 14:00] VITALS: BP 108/65; PULSE 98; RESP 18; TEMP 35.9; O2SAT 99
[2025-05-20] MEDS: DICLOFENAC SODIUM 1% 100 GM GEL (*BKC) 1 APPLIC TOPICAL (17:11)
--- NOTE | 2025-05-20 18:42 | PC.NURSE ---
Attempt made to call blood culture results to provider.
[2025-05-20 20:00] VITALS: PULSE 90; RESP 20; O2SAT 97
[2025-05-20] MEDS: ATORVASTATIN 20 MG TABLET PO (20:58)
[2025-05-20] MEDS: INSULIN GLARGINE (*BKC) 100 UNITS/ML 14 UNITS SUB-Q (21:00)
[2025-05-20 22:00] VITALS: BP 124/77; PULSE 90; RESP 20; TEMP 36.3; O2SAT 97
[2025-05-21 05:51] VITALS: BP 102/47; PULSE 93; RESP 20; TEMP 36.3; O2SAT 97
[2025-05-21] MEDS: CEFEPIME 2 GM in SODIUM CHLORIDE 0.9% IV 50 ML 100 ML IVPB ×3 (06:36→21:06)
[2025-05-21] MEDS: VANCOMYCIN 1,750 MG/NS 500 ML 1,750 MG/500 ML BAG 125 MG IVPB ×2 (07:42→16:55)
[2025-05-21] MEDS: FLUTICASONE/UMECLIDIN/VILANTER 200-62.5-25 MCG ELLIPTA 1 PUFF INHALATION (09:01)
[2025-05-21 09:04] VITALS: O2SAT 98
[2025-05-21] MEDS: MELOXICAM 7.5 MG TABLET 15 MG PO (09:58)
[2025-05-21] MEDS: oxyCODONE/ACETAMINOPHEN (*CRX) 5-325 MG TABLET 1 TABLET PO (09:58)
[2025-05-21] MEDS: ASPIRIN 81 MG CHEWABLE TABLET PO (09:58)
[2025-05-21] MEDS: GABAPENTIN 300 MG CAPSULE 600 MG PO ×3 (09:58→16:56)
[2025-05-21] MEDS: FOLIC ACID 1 MG TABLET PO (09:58)
--- NOTE | 2025-05-21 11:18 | PM.IMPN ---
Progress Note: A&P Assessment and Plan (1) Cellulitis of both lower extremities: Code(s): L03.115 - Cellulitis of right lower limb; L03.116 - Cellulitis of left lower limb Status: Acute (2) Essential (primary) hypertension: Code(s): I10 - Essential (primary) hypertension Status: Acute (3) Type 2 diabetes mellitus without complication, without long-term current use of insulin: Code(s): E11.9 - Type 2 diabetes mellitus without complications Status: Acute (4) Diabetic ulcer of both feet: Code(s): E11.621 - Type 2 diabetes mellitus with foot ulcer; L97.519 - Non-pressure chronic ulcer of other part of right foot with unspecified severity; L97.529 - Non-pressure chronic ulcer of other part of left foot with unspecified severity Status: Acute (5) Chronic venous stasis dermatitis of both lower extremities: Code(s): I87.2 - Venous insufficiency (chronic) (peripheral) Status: Acute (6) GERD (gastroesophageal reflux disease): Qualifiers: Esophagitis presence: esophagitis presence not specified Qualified Code(s): K21.9 - Gastro-esophageal reflux disease without esophagitis Code(s): K21.9 - Gastro-esophageal reflux disease without esophagitis Status: Acute Plan # Cellulitis lower extremities Wound infection prominent right lower extremity Suspecting osteomyelitis of right foot Right ankle x-ray showed extensive skin thickening dorsum of the foot and anterior margin of the ankle. Periosteal reaction of the distal aspect of the fibula and tibia. These findings are suspicious for underlying osteomyelitis with cellulitis. Left ankle/foot: Periosteal reaction distal aspect of the tibia and fibula with moderate diffuse soft tissue swelling of the ankle and foot. Skin thickening is present anteriorly overlying the ankle and foot. Consider osteomyelitis in the appropriate clinical setting versus reactive changes secondary to cellulitis. Recommend MRI Started on vancomycin and cefepime Foot MRI left with chronic periosteal reaction along the distal meta for diet 5 still regions of the tibia and fibula without associated marrow signals changes which could be due to chronic venous stasis or potentially hypertrophic pulmonary osteoarthropathy. No lesions suspicious for osteomyelitis of the right hindfoot/ankle. Sub chondral edema like signal change and enhancement without cortical erosions or loss of T1 marrow to indicate osteomyelitis at the ankle were not present subtalar talonavicular and calcaneocuboid joint which could be due to osteoarthritis, inflammatory arthritis complex regional pain syndrome. foot MRI Right 1. Relatively symmetric appearance of chronic periosteal reaction along the distal metadiaphyseal regions of the tibia and fibula without associated marrow signal changes and with similarly symmetric skin thickening at the ankle and dorsum of the hindfoot as seen at the contralateral foot and ankle should be most consistent with changes of chronic venous stasis with likely venous stasis ulcer at the medial aspect of the distal right lower leg. Differential for the periosteal reaction would include less likely hypertrophic pulmonary osteoarthropathy. No abscess or lesion suspicious for osteomyelitis in the right hind foot or ankle. 2. Subchondral edema-like signal change and enhancement without cortical erosions, loss of T1 marrow fat signal without joint effusions at the right ankle, subtalar, talonavicular and calcaneocuboid joints similar to that previously seen at the left foot and ankle which could be due to osteoarthritis, inflammatory arthritis, transient osteoporosis or less likely complex regional pain syndrome. 3. Mild right Achilles tendinosis and mild peritendinitis. overall negative for osteomyelitis. continue vancomycin and cefepime. get wound cutlure. recent culture with psuedomonas that was treated wt cefepime [facility] pain management Consult wound care # bacteremia with cons remains on IV vancomycin. Await susceptibility. # Recent arterial duplex with mild infrapopliteal peripheral vascular disease noted. # Knee arthritis with some contractures lower extremities # left shoulder pain: restricted ROM. xray shoulder with subluxation likely due to rotator cuff tear. PT OT # History of COPD Stable Continue Trelegy Ellipta 1 puff daily a future inhaler use far p.r.n. # Essential hypertension, Continue lisinopril and hydrochlorothiazide at home dose # Type 2 diabetes Hold glipizide metformin Start Lantus and sliding scale a.c. q.h.s. # disposition: likely needs rehab placement Subjective Date/time seen: 05/21/25 11:18 Interval history: No overnight events. Complains of pain in his legs. States has not worked with therapy. Remains afebrile. Blood culture was positive. Review of Systems Review of Systems: All systems reviewed & are unremarkable except as noted in HPI and below Exam Narrative: GENERAL: Pleasant, in no acute distress. Well-nourished. - EYES: EOMI. Anicteric. - HENT: Moist mucous membranes. - LUNGS: Clear to auscultation bilaterally, no wheezing, rhonchi, or rales. - CARDIOVASCULAR: Regular rate and rhythm. No murmur. No JVD. - ABDOMEN: Soft, non-tender and non-distended. No palpable masses. - EXTREMITIES: No edema. Peripheral pulses 2+. Non-tender. left shouler restrted ROM - NEUROLOGIC: No focal neurological deficits. CN II-XII grossly intact. - PSYCHIATRIC: Awake, Alert and oriented x 3. Appropriate mood and affect. - SKIN: Ulcers of his right and left lower extremity on wounds circumferential in his right ankle in healed ulcers of his lateral right foot and ankle. left foot and ankle has ulcerations on the ankle and dorsum of the left foot in various stages of healing with surrounding erythema - LYMPH: No cervical lymphadenopathy. Objective Data Vital Signs Vital Signs: Vital Signs - 24 hr 05/20/25 14:00 05/20/25 20:00 05/20/25 22:00 Temperature 96.7 F L 97.4 F L Pulse Rate 98 90 90 Respiratory Rate 18 20 20 Blood Pressure 108/65 124/77 Pulse Oximetry 99 97 97 Oxygen Delivery Room Air 05/21/25 05:51 05/21/25 08:00 05/21/25 09:04 Temperature 97.4 F L Pulse Rate 93 Respiratory Rate 20 Blood Pressure 102/47 L Pulse Oximetry 97 98 Oxygen Delivery Room Air Room Air Intake/Output Intake/Output: Intake & Output 05/18/25 05/19/25 05/20/25 05/21/25 23:59 23:59 23:59 23:59 Intake Total 2270 1920 2170 1500 Output Total 1750 1700 1125 850 Balance 541 079 5188 650 Meds/Results Medications: Active Medications Generic Name Dose Route Start Last Admin Trade Name Freq PRN Reason Stop Dose Admin Acetaminophen 650 mg 05/17/25 03:55 05/19/25 01:53 Acetaminophen 325 Mg Tablet PO 650 mg Q4H PRN Administration Mild Pain (1-3) or Fever Albuterol 2.5 mg 05/18/25 13:00 Albuterol Sulfate Neb 2.5 Mg/3 Ml Inh INHALATION Q4HRT PRN Shortness Of Breath Albuterol 2 puff 05/19/25 13:40 Albuterol Sulfate (*Sp) Aerosol 1 Puff INHALATION Q4H PRN shortness of breath or wheezing Aspirin 81 mg 05/18/25 13:00 05/21/25 09:58 Aspirin 81 Mg Chewable Tablet PO 81 mg DAILY@0800 ELISSA Administration Atorvastatin Calcium 20 mg 05/18/25 21:00 05/20/25 20:58 Atorvastatin 20 Mg Tablet PO 20 mg HS ELISSA Administration Dextrose 12.5 gm 05/17/25 07:55 Dextrose 50% 25 Gm/50 Ml Syringe IV PUSH PRN PRN Hypoglycemia Protocol Diclofenac Sodium 1 applic 05/18/25 18:21 05/20/25 17:11 Diclofenac Sodium 1% 100 Gm Gel (*Bkc) TOPICAL 1 applic QID PRN Administration Muscle/Joint Pain Fluticasone/Umeclidinium/Vilanterol 1 puff 05/18/25 13:05 05/21/25 09:01 Fluticasone/Umeclidin/Vilanter 200-62.5-25 Mcg Ellipta INHALATION 1 puff DAILYRT ELISSA Administration Folic Acid 1 mg 05/20/25 09:00 05/21/25 09:58 Folic Acid 1 Mg Tablet PO 1 mg DAILY ELISSA Administration Gabapentin 600 mg 05/18/25 13:00 05/21/25 09:58 Gabapentin 300 Mg Capsule PO 600 mg TID ELISSA Administration Glucagon 1 mg 05/17/25 07:55 Glucagon For Inj 1 Mg Vial IM PRN PRN Hypoglycemia Protocol Glucose 15 gm 05/17/25 07:55 Glucose Oral Gel 15 Gm Of Glucse In 37.5 Gm Tube PO PRN PRN Hypoglycemia Protocol Dextrose 1,000 mls @ 100 mls/hr 05/17/25 07:55 Dextrose 5% 1,000 Ml IVPB PRN PRN Hypoglycemia Protocol Cefepime HCl 2 gm/ Sodium 50 mls @ 100 mls/hr 05/17/25 12:30 05/21/25 06:36 Chloride IVPB 100 mls/hr Q8HR ELISSA Administration Vancomycin HCl 1,750 mg in 500 mls @ 250 mls/hr 05/20/25 06:00 05/21/25 07:42 Vancomycin 1,750 Mg/Ns 500 Ml IVPB 125 mls/hr Q8H ELISSA Administration Insulin Aspart 4 - 8 units 05/17/25 08:00 05/21/25 09:56 Insulin Aspart (*Bkc) 100 Units/Ml SUB-Q Not Given TIDWM [facility] Protocol Insulin Aspart 2 - 4 units 05/17/25 21:00 05/20/25 20:59 Insulin Aspart (*Bkc) 100 Units/Ml SUB-Q Not Given HS [facility] Protocol Insulin Glargine 14 units 05/17/25 21:00 05/20/25 21:00 Insulin Glargine (*Bkc) 100 Units/Ml 0.15 units/kg (14 units) 14 units SUB-Q Administration HS [facility] Lisinopril 10 mg 05/18/25 13:05 05/21/25 09:58 Lisinopril 10 Mg Tablet PO 10 mg DAILY ELISSA Administration Meloxicam 15 mg 05/20/25 09:00 05/21/25 09:58 Meloxicam 7.5 Mg Tablet PO 15 mg DAILY ELISSA Administration Ondansetron HCl 4 mg 05/17/25 03:55 Ondansetron Inj 4 Mg/2 Ml Vial IV PUSH Q4H PRN Nausea Oxycodone/Acetaminophen 1 tablet 05/17/25 07:55 05/21/25 09:58 Oxycodone/Acetaminophen (*Crx) 5-325 Mg Tablet PO 1 tablet Q4H PRN Administration Pain Rated 7-10 Radiology Results: ITS Impressions Shoulder X-Ray 05/17/25 07:38 Impression: 1: No acute fracture. Ankle X-Ray 05/17/25 07:43 Impression: 1: Periosteal reaction distal aspect of the tibia and fibula with moderate diffuse soft tissue swelling of the ankle and foot. Skin thickening is present anteriorly overlying the ankle and foot. Consider osteomyelitis in the appropriate clinical setting versus reactive changes secondary to cellulitis. Recommend correlation with MRI with contrast to exclude osteomyelitis. Foot X-Ray 05/17/25 07:43 Impression: 1: Periosteal reaction distal aspect of the tibia and fibula with moderate diffuse soft tissue swelling of the ankle and foot. Skin thickening is present anteriorly overlying the ankle and foot. Consider osteomyelitis in the appropriate clinical setting versus reactive changes secondary to cellulitis. Recommend correlation with MRI with contrast to exclude osteomyelitis. Knee X-Ray 05/17/25 07:45 Impression: 1: No acute fracture. Limited study. 2: Small joint effusion. Foot MRI 05/19/25 16:22 IMPRESSION: 1. Relatively symmetric appearance of chronic periosteal reaction along the distal metadiaphyseal regions of the tibia and fibula without associated marrow signal changes and with similarly symmetric skin thickening at the ankle and dorsum of the hindfoot as seen at the contralateral foot and ankle should be most consistent with changes of chronic venous stasis with likely venous stasis ulcer at the medial aspect of the distal right lower leg. Differential for the periosteal reaction would include less likely hypertrophic pulmonary osteoarthropathy. No abscess or lesion suspicious for osteomyelitis in the right hind foot or ankle. 2. Subchondral edema-like signal change and enhancement without cortical erosions, loss of T1 marrow fat signal without joint effusions at the right ankle, subtalar, talonavicular and calcaneocuboid joints similar to that previously seen at the left foot and ankle which could be due to osteoarthritis, inflammatory arthritis, transient osteoporosis or less likely complex regional pain syndrome. 3. Mild right Achilles tendinosis and mild peritendinitis. Labs Labs: Laboratory Results - last 24 hr 05/20/25 05/20/25 05/20/25 12:36 16:49 19:41 POC Capillary Glucose 159 H 93 150 H Vancomycin Trough 05/21/25 05/21/25 05:29 07:59 POC Capillary Glucose 120 H Vancomycin Trough 18.5
--- NOTE | 2025-05-21 11:40 | PCOTNOTE ---
Attempted to see pt for OT treatment. Pt declined to participate in therapy session due to increase pain in LLE knee progressing down to toes. Pt states that he already spoke to Dr about his pain. Pt also declined to perform functional transfer to chair despite education on using dajuan stedy stating it still hurts too much. Pt was also to assist with bathing however also declined. Will continue per poc duration/frequency tomorrow.
[2025-05-21 14:00] VITALS: BP 103/63; PULSE 108; RESP 18; TEMP 36.8; O2SAT 98
[2025-05-21] MEDS: oxyCODONE/ACETAMINOPHEN (*CRX) 5-325 MG TABLET 1.5 TABLET PO (14:35)
[2025-05-21] MEDS: ACETAMINOPHEN 325 MG TABLET 650 MG PO (20:29)
[2025-05-21] MEDS: ATORVASTATIN 20 MG TABLET PO (20:29)
[2025-05-21] MEDS: INSULIN GLARGINE (*BKC) 100 UNITS/ML 14 UNITS SUB-Q (20:43)
[2025-05-21 21:48] VITALS: BP 127/69; PULSE 90; RESP 18; TEMP 36.6; O2SAT 98
[2025-05-22] MEDS: VANCOMYCIN 1,750 MG/NS 500 ML 1,750 MG/500 ML BAG 250 MG IVPB ×2 (00:25→10:34)
[2025-05-22] MEDS: oxyCODONE/ACETAMINOPHEN (*CRX) 5-325 MG TABLET 1.5 TABLET PO ×2 (02:06→10:35)
[2025-05-22 06:00] VITALS: BP 106/69; PULSE 87; RESP 18; TEMP 36.9; O2SAT 97
[2025-05-22] MEDS: CEFEPIME 2 GM in SODIUM CHLORIDE 0.9% IV 50 ML 100 ML IVPB (06:01)
[2025-05-22 06:05] LABS: Hematocrit 33.8 % (42.0-52.0); Hemoglobin 10.4 g/dL (14.0-18.0); Immature Granulocyte Percent A 0.7 % (0-0.5); Lymphocytes Absolute Auto 1.15 K/mm3 (0.9-3.2); Mean Corpuscular HGB Conc 30.8 g/dl (32-36); Mean Corpuscular Hemoglobin 25.8 pg (26-34); Mean Corpuscular Volume 83.9 fl (80-100); Nucleated Red Blood Cells Absolute Auto 0.000 K/mm3 (0.0-0.012); Nucleated Red Blood Cells Perc 0.0 % (0.0-0.2); Platelet Count Result 364 k/mm3 (150-375); Red Blood Count 4.03 M/mm3 (4.6-6.20); White Blood Count 8.7 K/mm3 (4.5-10.0)
[2025-05-22 06:28] LABS: Alanine Aminotransferase 30 U/L (6-50); Albumin Level 2.7 g/dL (3.5-5.1); Alkaline Phosphatase 79 U/L (38-126); Anion Gap 4 mmol/L (4-12); Aspartate Amino Transferase 29 U/L (17-59); Bilirubin,Total 0.3 mg/dL (0.2-1.3); Blood Urea Nitrogen 11 mg/dL (9-20); Calcium 8.6 mg/dL (8.4-10.2); Carbon Dioxide 27 mmol/L (22-30); Chloride 98 mmol/L (98-107); Estimated CRCL calculation 137 ml/min; Estimated Glomerular Filt Rate > 60; Glucose 123 mg/dL (65-110); Magnesium 1.6 mg/dL (1.6-2.3); Potassium 3.8 mmol/L (3.4-5.0); Sodium 129 mmol/L (137-145); Total Protein 5.9 g/dL (6.3-8.2)
[2025-05-22] MEDS: FLUTICASONE/UMECLIDIN/VILANTER 200-62.5-25 MCG ELLIPTA 1 PUFF INHALATION (07:34)
[2025-05-22 07:35] VITALS: O2SAT 95
[2025-05-22] MEDS: MELOXICAM 7.5 MG TABLET 15 MG PO (10:33)
[2025-05-22] MEDS: GABAPENTIN 300 MG CAPSULE 600 MG PO ×3 (10:33→16:58)
[2025-05-22] MEDS: ASPIRIN 81 MG CHEWABLE TABLET PO (10:34)
[2025-05-22] MEDS: FOLIC ACID 1 MG TABLET PO (10:34)
[2025-05-22] MEDS: LORazepam (*CRX) 0.5 MG TABLET PO (13:28)
[2025-05-22 14:00] VITALS: BP 113/60; PULSE 91; RESP 18; TEMP 36.4; O2SAT 96
--- NOTE | 2025-05-22 15:00 | PM.IMPN ---
Progress Note: A&P Assessment and Plan (1) Cellulitis of both lower extremities: Code(s): L03.115 - Cellulitis of right lower limb; L03.116 - Cellulitis of left lower limb Status: Acute (2) Essential (primary) hypertension: Code(s): I10 - Essential (primary) hypertension Status: Acute (3) Type 2 diabetes mellitus without complication, without long-term current use of insulin: Code(s): E11.9 - Type 2 diabetes mellitus without complications Status: Acute (4) Diabetic ulcer of both feet: Code(s): E11.621 - Type 2 diabetes mellitus with foot ulcer; L97.519 - Non-pressure chronic ulcer of other part of right foot with unspecified severity; L97.529 - Non-pressure chronic ulcer of other part of left foot with unspecified severity Status: Acute (5) Chronic venous stasis dermatitis of both lower extremities: Code(s): I87.2 - Venous insufficiency (chronic) (peripheral) Status: Acute (6) GERD (gastroesophageal reflux disease): Qualifiers: Esophagitis presence: esophagitis presence not specified Qualified Code(s): K21.9 - Gastro-esophageal reflux disease without esophagitis Code(s): K21.9 - Gastro-esophageal reflux disease without esophagitis Status: Acute Plan # Cellulitis lower extremities Wound infection prominent right lower extremity Suspecting osteomyelitis of right foot Right ankle x-ray showed extensive skin thickening dorsum of the foot and anterior margin of the ankle. Periosteal reaction of the distal aspect of the fibula and tibia. These findings are suspicious for underlying osteomyelitis with cellulitis. Left ankle/foot: Periosteal reaction distal aspect of the tibia and fibula with moderate diffuse soft tissue swelling of the ankle and foot. Skin thickening is present anteriorly overlying the ankle and foot. Consider osteomyelitis in the appropriate clinical setting versus reactive changes secondary to cellulitis. Recommend MRI Started on vancomycin and cefepime Foot MRI left with chronic periosteal reaction along the distal meta for diet 5 still regions of the tibia and fibula without associated marrow signals changes which could be due to chronic venous stasis or potentially hypertrophic pulmonary osteoarthropathy. No lesions suspicious for osteomyelitis of the right hindfoot/ankle. Sub chondral edema like signal change and enhancement without cortical erosions or loss of T1 marrow to indicate osteomyelitis at the ankle were not present subtalar talonavicular and calcaneocuboid joint which could be due to osteoarthritis, inflammatory arthritis complex regional pain syndrome. foot MRI Right 1. Relatively symmetric appearance of chronic periosteal reaction along the distal metadiaphyseal regions of the tibia and fibula without associated marrow signal changes and with similarly symmetric skin thickening at the ankle and dorsum of the hindfoot as seen at the contralateral foot and ankle should be most consistent with changes of chronic venous stasis with likely venous stasis ulcer at the medial aspect of the distal right lower leg. Differential for the periosteal reaction would include less likely hypertrophic pulmonary osteoarthropathy. No abscess or lesion suspicious for osteomyelitis in the right hind foot or ankle. 2. Subchondral edema-like signal change and enhancement without cortical erosions, loss of T1 marrow fat signal without joint effusions at the right ankle, subtalar, talonavicular and calcaneocuboid joints similar to that previously seen at the left foot and ankle which could be due to osteoarthritis, inflammatory arthritis, transient osteoporosis or less likely complex regional pain syndrome. 3. Mild right Achilles tendinosis and mild peritendinitis. overall negative for osteomyelitis. continue vancomycin and cefepime. get wound cutlure. recent culture with psuedomonas that was treated wt cefepime [facility] pain management Consult wound care History of MDR Pseudomonas from wound in the past which was treated with meropenem Will switch antibiotic to meropenem. # bacteremia with cons remains on IV vancomycin. MRSE. Will switch to linezolid to complete 7 days course # Recent arterial duplex with mild infrapopliteal peripheral vascular disease noted. # Knee arthritis with some contractures lower extremities # left shoulder pain: restricted ROM. xray shoulder with subluxation likely due to rotator cuff tear. MRI with findings of chronic anterior shoulder dislocation with chronic appearing Hill-Sachs fracture trough at the humeral head and low to moderate grade chondromalacia and degenerative tearing of the glenoid labrum at the anterior inferior glenoid subscapularis tendinopathy without discrete tear. Bursitis need follow-up with orthopedics. May consult Orthopedics for establishment and evaluation # History of COPD Stable Continue Trelegy Ellipta 1 puff daily a future inhaler use far p.r.n. # Essential hypertension, Continue lisinopril and hydrochlorothiazide at home dose # Type 2 diabetes Hold glipizide metformin Start Lantus and sliding scale a.c. q.h.s. # disposition: likely needs rehab placement Subjective Date/time seen: 05/22/25 15:00 Interval history: No overnight events. Continues to complain of pain in legs. Having some heartburn Review of Systems Review of Systems: All systems reviewed & are unremarkable except as noted in HPI and below Exam Narrative: GENERAL: Pleasant, in no acute distress. Well-nourished. - EYES: EOMI. Anicteric. - HENT: Moist mucous membranes. - LUNGS: Clear to auscultation bilaterally, no wheezing, rhonchi, or rales. - CARDIOVASCULAR: Regular rate and rhythm. No murmur. No JVD. - ABDOMEN: Soft, non-tender and non-distended. No palpable masses. - EXTREMITIES: No edema. Peripheral pulses 2+. Non-tender. left shouler restrted ROM - NEUROLOGIC: No focal neurological deficits. CN II-XII grossly intact. - PSYCHIATRIC: Awake, Alert and oriented x 3. Appropriate mood and affect. - SKIN: Ulcers of his right and left lower extremity on wounds circumferential in his right ankle in healed ulcers of his lateral right foot and ankle. left foot and ankle has ulcerations on the ankle and dorsum of the left foot in various stages of healing with surrounding erythema - LYMPH: No cervical lymphadenopathy. Objective Data Vital Signs Vital Signs: Vital Signs - 24 hr 05/21/25 21:48 05/22/25 06:00 05/22/25 07:35 Temperature 97.9 F 98.5 F Pulse Rate 90 87 Respiratory Rate 18 18 Blood Pressure 127/69 106/69 Pulse Oximetry 98 97 95 Oxygen Delivery Room Air 05/22/25 08:00 Temperature Pulse Rate Respiratory Rate Blood Pressure Pulse Oximetry Oxygen Delivery Room Air Intake/Output Intake/Output: Intake & Output 05/19/25 05/20/25 05/21/25 05/22/25 23:59 23:59 23:59 23:59 Intake Total 1920 2170 3130 1192.5 Output Total 1700 1125 1050 300 Balance 220 1045 2080 892.5 Meds/Results Medications: Active Medications Generic Name Dose Route Start Last Admin Trade Name Freq PRN Reason Stop Dose Admin Acetaminophen 650 mg 05/17/25 03:55 05/21/25 20:29 Acetaminophen 325 Mg Tablet PO 650 mg Q4H PRN Administration Mild Pain (1-3) or Fever Albuterol 2.5 mg 05/18/25 13:00 Albuterol Sulfate Neb 2.5 Mg/3 Ml Inh INHALATION Q4HRT PRN Shortness Of Breath Albuterol 2 puff 05/19/25 13:40 Albuterol Sulfate (*Sp) Aerosol 1 Puff INHALATION Q4H PRN shortness of breath or wheezing Aspirin 81 mg 05/18/25 13:00 05/22/25 10:34 Aspirin 81 Mg Chewable Tablet PO 81 mg DAILY@0800 ELISSA Administration Atorvastatin Calcium 20 mg 05/18/25 21:00 05/21/25 20:29 Atorvastatin 20 Mg Tablet PO 20 mg HS ELISSA Administration Calcium Carbonate 200 mg 05/22/25 12:20 Calcium Carbonate (Tums) 500 Mg (200 Mg Elemental) PO Q6H PRN Indigestion Dextrose 12.5 gm 05/17/25 07:55 Dextrose 50% 25 Gm/50 Ml Syringe IV PUSH PRN PRN Hypoglycemia Protocol Diclofenac Sodium 1 applic 05/18/25 18:21 05/20/25 17:11 Diclofenac Sodium 1% 100 Gm Gel (*Bkc) TOPICAL 1 applic QID PRN Administration Muscle/Joint Pain Fluticasone/Umeclidinium/Vilanterol 1 puff 05/18/25 13:05 05/22/25 07:34 Fluticasone/Umeclidin/Vilanter 200-62.5-25 Mcg Ellipta INHALATION 1 puff DAILYRT ELISSA Administration Folic Acid 1 mg 05/20/25 09:00 05/22/25 10:34 Folic Acid 1 Mg Tablet PO 1 mg DAILY ELISSA Administration Gabapentin 600 mg 05/18/25 13:00 05/22/25 13:28 Gabapentin 300 Mg Capsule PO 600 mg TID ELISSA Administration Glucagon 1 mg 05/17/25 07:55 Glucagon For Inj 1 Mg Vial IM PRN PRN Hypoglycemia Protocol Glucose 15 gm 05/17/25 07:55 Glucose Oral Gel 15 Gm Of Glucse In 37.5 Gm Tube PO PRN PRN Hypoglycemia Protocol Dextrose 1,000 mls @ 100 mls/hr 05/17/25 07:55 Dextrose 5% 1,000 Ml IVPB PRN PRN Hypoglycemia Protocol Meropenem 1 gm/ Sodium 100 mls @ 200 mls/hr 05/22/25 14:30 Chloride IVPB 06/01/25 06:29 Q8HR ELISSA Insulin Aspart 4 - 8 units 05/17/25 08:00 05/22/25 12:02 Insulin Aspart (*Bkc) 100 Units/Ml SUB-Q Not Given TIDWM [facility] Protocol Insulin Aspart 2 - 4 units 05/17/25 21:00 05/21/25 20:45 Insulin Aspart (*Bkc) 100 Units/Ml SUB-Q Not Given HS [facility] Protocol Insulin Glargine 14 units 05/17/25 21:00 05/21/25 20:43 Insulin Glargine (*Bkc) 100 Units/Ml 0.15 units/kg (14 units) 14 units SUB-Q Administration HS [facility] Linezolid 600 mg 05/22/25 19:00 Linezolid 600 Mg Tablet PO 05/24/25 21:01 Q12HR [facility] Lisinopril 10 mg 05/18/25 13:05 05/22/25 10:34 Lisinopril 10 Mg Tablet PO 10 mg DAILY [facility] Administration Lorazepam 0.5 mg 05/21/25 15:12 05/22/25 13:28 Lorazepam (*Crx) 0.5 Mg Tablet PO 0.5 mg ONCE PRN Administration MRI ANXIETY Meloxicam 15 mg 05/20/25 09:00 05/22/25 10:33 Meloxicam 7.5 Mg Tablet PO 15 mg DAILY [facility] Administration Ondansetron HCl 4 mg 05/17/25 03:55 Ondansetron Inj 4 Mg/2 Ml Vial IV PUSH Q4H PRN Nausea Oxycodone/Acetaminophen 1.5 tablet 05/21/25 11:30 05/22/25 10:35 Oxycodone/Acetaminophen (*Crx) 5-325 Mg Tablet PO 1.5 tablet Q4H PRN Administration Pain Rated 7-10 Pantoprazole Sodium 40 mg 05/23/25 09:00 Pantoprazole 40 Mg Tablet PO QAM [facility] Polyethylene Glycol 17 gm 05/22/25 09:00 05/22/25 11:09 Polyethylene Glycol 3350 17 Gm Powd.Pack [facility] [place] [facility] Impressions Shoulder X-Ray 05/17/25 07:38 Impression: 1: No acute fracture. Ankle X-Ray 05/17/25 07:43 Impression: 1: Periosteal reaction distal aspect of the tibia and fibula with moderate diffuse soft tissue swelling of the ankle and foot. Skin thickening is present anteriorly overlying the ankle and foot. Consider osteomyelitis in the appropriate clinical setting versus reactive changes secondary to cellulitis. Recommend correlation with MRI with contrast to exclude osteomyelitis. Foot X-Ray 05/17/25 07:43 Impression: 1: Periosteal reaction distal aspect of the tibia and fibula with moderate diffuse soft tissue swelling of the ankle and foot. Skin thickening is present anteriorly overlying the ankle and foot. Consider osteomyelitis in the appropriate clinical setting versus reactive changes secondary to cellulitis. Recommend correlation with MRI with contrast to exclude osteomyelitis. Knee X-Ray 05/17/25 07:45 Impression: 1: No acute fracture. Limited study. 2: Small joint effusion. Foot MRI 05/19/25 16:22 IMPRESSION: 1. Relatively symmetric appearance of chronic periosteal reaction along the distal metadiaphyseal regions of the tibia and fibula without associated marrow signal changes and with similarly symmetric skin thickening at the ankle and dorsum of the hindfoot as seen at the contralateral foot and ankle should be most consistent with changes of chronic venous stasis with likely venous stasis ulcer at the medial aspect of the distal right lower leg. Differential for the periosteal reaction would include less likely hypertrophic pulmonary osteoarthropathy. No abscess or lesion suspicious for osteomyelitis in the right hind foot or ankle. 2. Subchondral edema-like signal change and enhancement without cortical erosions, loss of T1 marrow fat signal without joint effusions at the right ankle, subtalar, talonavicular and calcaneocuboid joints similar to that previously seen at the left foot and ankle which could be due to osteoarthritis, inflammatory arthritis, transient osteoporosis or less likely complex regional pain syndrome. 3. Mild right Achilles tendinosis and mild peritendinitis. Duplex Scan Lower Extremity Artery 05/22/25 08:17 IMPRESSION: 1. Normal brisk systolic upstrokes throughout the arteries of the bilateral lower limbs with no evident hemodynamically significant stenosis by Doppler or grayscale imaging. Shoulder MRI 05/22/25 14:21 IMPRESSION: 1. Evaluation moderately limited by motion artifact present to some degree on all sequences. 2. Constellation of findings suggesting sequela of chronic anterior shoulder dislocation with chronic appearing shallow Hill-Sachs fracture trough at the humeral head and with low to moderate grade chondromalacia and degenerative tearing of the glenoid labrum at the anteroinferior glenoid. 3. Mild subscapularis tendinopathy without discrete tear. 4. Small left glenohumeral joint effusion and minimal subacromial/subdeltoid bursitis. Labs Labs: Laboratory Results - last 24 hr 05/21/25 05/21/25 05/22/25 17:02 20:28 05:48 WBC 8.7 RBC 4.03 L Hgb 10.4 L Hct 33.8 L MCV 83.9 MCH 25.8 L MCHC 30.8 L RDW 14.2 Plt Count 364 MPV 8.6 Immature Gran % (Auto) 0.7 H Neut % (Auto) 66.1 Lymph % (Auto) 13.2 L Lea % (Auto) 12.5 H Eos % (Auto) 6.9 H Baso % (Auto) 0.6 Lymph # (Auto) 1.15 Lea # (Auto) 1.1 H Eos # (Auto) 0.6 H Baso # (Auto) 0.1 Abs Immat Gran (auto) 0.06 H Absolute Neuts (auto) 5.7 Absolute Nucleated RBC 0.000 Nucleated RBC % 0.0 Sodium 129 L Potassium 3.8 Chloride 98 Carbon Dioxide 27 Anion Gap 4 BUN 11 Creatinine 0.50 L Estim Creat Clear Calc 137 Estimated GFR > 60 Glucose 123 H POC Capillary Glucose 132 H 141 H Calcium 8.6 Magnesium 1.6 Total Bilirubin 0.3 AST 29 ALT 30 Alkaline Phosphatase 79 Total Protein 5.9 L Albumin 2.7 L 05/22/25 05/22/25 07:59 11:48 WBC RBC Hgb Hct MCV MCH MCHC RDW Plt Count MPV Immature Gran % (Auto) Neut % (Auto) Lymph % (Auto) Lea % (Auto) Eos % (Auto) Baso % (Auto) Lymph # (Auto) Lea # (Auto) Eos # (Auto) Baso # (Auto) Abs Immat Gran (auto) Absolute Neuts (auto) Absolute Nucleated RBC Nucleated RBC % Sodium Potassium Chloride Carbon Dioxide Anion Gap BUN Creatinine Estim Creat Clear Calc Estimated GFR Glucose POC Capillary Glucose 107 H 117 H Calcium Magnesium Total Bilirubin AST ALT Alkaline Phosphatase Total Protein Albumin
[2025-05-22] MEDS: LIDOCAINE 1% PF INJ 5 ML VIAL INFILTRATE (15:40)
[2025-05-22] MEDS: MEROPENEM 1 GM in SODIUM CHLORIDE 0.9% IV 100 ML 200 ML IVPB ×2 (16:58→22:00)
[2025-05-22] MEDS: LINEZOLID 600 MG TABLET PO (16:58)
[2025-05-22] MEDS: CALCIUM CARBONATE (TUMS) 500 MG (200 MG ELEMENTAL) PO (16:58)
[2025-05-22 21:23] VITALS: BP 108/69; PULSE 84; RESP 16; TEMP 36.4; O2SAT 99
[2025-05-22] MEDS: INSULIN GLARGINE (*BKC) 100 UNITS/ML 14 UNITS SUB-Q (22:09)
[2025-05-22] MEDS: ATORVASTATIN 20 MG TABLET PO (22:10)
[2025-05-22] MEDS: SALINE LOCK FLUSH 10 ML IV PUSH (22:11)
[2025-05-23] MEDS: MEROPENEM 1 GM in SODIUM CHLORIDE 0.9% IV 100 ML 200 ML IVPB ×3 (05:46→21:27)
[2025-05-23 06:00] VITALS: BP 123/65; PULSE 91; RESP 16; TEMP 36.4; O2SAT 95
[2025-05-23 06:47] LABS: Hematocrit 33.8 % (42.0-52.0); Hemoglobin 10.7 g/dL (14.0-18.0); Immature Granulocyte Percent A 0.6 % (0-0.5); Lymphocytes Absolute Auto 1.29 K/mm3 (0.9-3.2); Mean Corpuscular HGB Conc 31.7 g/dl (32-36); Mean Corpuscular Hemoglobin 25.9 pg (26-34); Mean Corpuscular Volume 81.8 fl (80-100); Nucleated Red Blood Cells Absolute Auto 0.000 K/mm3 (0.0-0.012); Nucleated Red Blood Cells Perc 0.0 % (0.0-0.2); Platelet Count Result 456 k/mm3 (150-375); Red Blood Count 4.13 M/mm3 (4.6-6.20); White Blood Count 9.8 K/mm3 (4.5-10.0)
[2025-05-23] MEDS: SALINE LOCK FLUSH 10 ML IV PUSH ×3 (06:49→21:35)
[2025-05-23 07:14] LABS: Alanine Aminotransferase 28 U/L (6-50); Albumin Level 2.9 g/dL (3.5-5.1); Alkaline Phosphatase 88 U/L (38-126); Anion Gap 4 mmol/L (4-12); Aspartate Amino Transferase 35 U/L (17-59); Bilirubin,Total 0.2 mg/dL (0.2-1.3); Blood Urea Nitrogen 8 mg/dL (9-20); Calcium 9.0 mg/dL (8.4-10.2); Carbon Dioxide 30 mmol/L (22-30); Chloride 94 mmol/L (98-107); Estimated CRCL calculation 142 ml/min; Estimated Glomerular Filt Rate > 60; Glucose 121 mg/dL (65-110); Magnesium 1.6 mg/dL (1.6-2.3); Potassium 3.8 mmol/L (3.4-5.0); Sodium 128 mmol/L (137-145); Total Protein 6.1 g/dL (6.3-8.2)
[2025-05-23 08:42] VITALS: PULSE 95; RESP 20; O2SAT 94
[2025-05-23] MEDS: FLUTICASONE/UMECLIDIN/VILANTER 200-62.5-25 MCG ELLIPTA 1 PUFF INHALATION (08:42)
[2025-05-23 08:50] VITALS: O2SAT 97
[2025-05-23] MEDS: GABAPENTIN 300 MG CAPSULE 600 MG PO ×3 (08:50→17:10)
[2025-05-23] MEDS: MELOXICAM 7.5 MG TABLET 15 MG PO (08:51)
[2025-05-23] MEDS: PANTOPRAZOLE 40 MG TABLET PO (08:51)
[2025-05-23] MEDS: ASPIRIN 81 MG CHEWABLE TABLET PO (08:51)
[2025-05-23] MEDS: oxyCODONE/ACETAMINOPHEN (*CRX) 5-325 MG TABLET 1.5 TABLET PO ×2 (08:52→14:14)
[2025-05-23] MEDS: LINEZOLID 600 MG TABLET PO ×2 (08:53→21:26)
[2025-05-23] MEDS: FOLIC ACID 1 MG TABLET PO (08:53)
--- NOTE | 2025-05-23 10:31 | PCNWS ---
Weekly nutritional screen. Patient is tolerating current diabetic diet with adequate intake 100% of meals. No weight loss reported. No nutritional recommendations at this time.
--- NOTE | 2025-05-23 12:17 | P.PNIM_ITS ---
Progress Note: A&P Assessment and Plan (1) Cellulitis of both lower extremities: Code(s): L03.115 - Cellulitis of right lower limb; L03.116 - Cellulitis of left lower limb Status: Acute (2) Essential (primary) hypertension: Code(s): I10 - Essential (primary) hypertension Status: Acute (3) Type 2 diabetes mellitus without complication, without long-term current use of insulin: Code(s): E11.9 - Type 2 diabetes mellitus without complications Status: Acute (4) Diabetic ulcer of both feet: Code(s): E11.621 - Type 2 diabetes mellitus with foot ulcer; L97.519 - Non-pressure chronic ulcer of other part of right foot with unspecified severity; L97.529 - Non-pressure chronic ulcer of other part of left foot with unspecified severity Status: Acute (5) Chronic venous stasis dermatitis of both lower extremities: Code(s): I87.2 - Venous insufficiency (chronic) (peripheral) Status: Acute (6) GERD (gastroesophageal reflux disease): Qualifiers: Esophagitis presence: esophagitis presence not specified Qualified Code(s): K21.9 - Gastro-esophageal reflux disease without esophagitis Code(s): K21.9 - Gastro-esophageal reflux disease without esophagitis Status: Acute Plan # Cellulitis lower extremities Wound infection prominent right lower extremity Suspecting osteomyelitis of right foot Right ankle x-ray showed extensive skin thickening dorsum of the foot and anterior margin of the ankle. Periosteal reaction of the distal aspect of the fibula and tibia. These findings are suspicious for underlying osteomyelitis with cellulitis. Left ankle/foot: Periosteal reaction distal aspect of the tibia and fibula with moderate diffuse soft tissue swelling of the ankle and foot. Skin thickening is present anteriorly overlying the ankle and foot. Consider osteomyelitis in the appropriate clinical setting versus reactive changes secondary to cellulitis. Recommend MRI Started on vancomycin and cefepime Foot MRI left with chronic periosteal reaction along the distal meta for diet 5 still regions of the tibia and fibula without associated marrow signals changes which could be due to chronic venous stasis or potentially hypertrophic pulmonary osteoarthropathy. No lesions suspicious for osteomyelitis of the right hindfoot/ankle. Sub chondral edema like signal change and enhancement without cortical erosions or loss of T1 marrow to indicate osteomyelitis at the ankle were not present subtalar talonavicular and calcaneocuboid joint which could be due to osteoarthritis, inflammatory arthritis complex regional pain syndrome. foot MRI Right 1. Relatively symmetric appearance of chronic periosteal reaction along the distal metadiaphyseal regions of the tibia and fibula without associated marrow signal changes and with similarly symmetric skin thickening at the ankle and dorsum of the hindfoot as seen at the contralateral foot and ankle should be most consistent with changes of chronic venous stasis with likely venous stasis ulcer at the medial aspect of the distal right lower leg. Differential for the periosteal reaction would include less likely hypertrophic pulmonary osteoarthropathy. No abscess or lesion suspicious for osteomyelitis in the right hind foot or ankle. 2. Subchondral edema-like signal change and enhancement without cortical erosions, loss of T1 marrow fat signal without joint effusions at the right ankle, subtalar, talonavicular and calcaneocuboid joints similar to that previously seen at the left foot and ankle which could be due to osteoarthritis, inflammatory arthritis, transient osteoporosis or less likely complex regional pain syndrome. 3. Mild right Achilles tendinosis and mild peritendinitis. overall negative for osteomyelitis. continue vancomycin and cefepime. get wound cutlure. recent culture with psuedomonas that was treated wt cefepime [facility] pain management Consult wound care History of MDR Pseudomonas from wound in the past which was treated with meropenem Will switch antibiotic to meropenem and plan to treat for 10 total days # bacteremia with cons remains on IV vancomycin. MRSE. Will switch to larry ezolid to complete 7 days course # Recent arterial duplex with mild infrapopliteal peripheral vascular disease noted. # Knee arthritis with some contractures lower extremities # left shoulder pain: restricted ROM. xray shoulder with subluxation likely due to rotator cuff tear. MRI with findings of chronic anterior shoulder dislocation with chronic appearing Hill-Sachs fracture trough at the humeral head and low to moderate grade chondromalacia and degenerative tearing of the glenoid labrum at the anterior inferior glenoid subscapularis tendinopathy without discrete tear. Bursitis need follow-up with orthopedics. consult orthopedics. # History of COPD Stable Continue Trelegy Ellipta 1 puff daily a future inhaler use far p.r.n. # Essential hypertension, Continue lisinopril and hydrochlorothiazide at home dose # Type 2 diabetes Hold glipizide metformin Start Lantus and sliding scale a.c. q.h.s. # disposition: likely needs rehab placement Subjective Date/time seen: 05/23/25 12:17 Interval history: no overnight events. Lower extremity pain reported. Discussed findings of MRI of left shoulder today. Review of Systems Review of Systems: All systems reviewed & are unremarkable except as noted in HPI and below Exam Narrative: GENERAL: Pleasant, in no acute distress. Well-nourished. - EYES: EOMI. Anicteric. - HENT: Moist mucous membranes. - LUNGS: Clear to auscultation bilateral ly, no wheezing, rhonchi, or rales. - CARDIOVASCULAR: Regular rate and rhyth m. No murmur. No JVD. - ABDOMEN: Soft, non-tender and non-dist ended. No palpable masses. - EXTREMITIES: No edema. Peripheral pul ses 2+. Non-tender. left shouler restrted ROM - NEUROLOGIC: No focal neurological defi cits. CN II-XII grossly intact. - PSYCHIATRIC: Awake, Alert and oriented x 3. Appropriate mood and affect. - SKIN: Ulcers of his right and left lo wer extremity on wounds circumferential in his right ankle in healed ulcers of his lateral right foot and ankle. left foot and ankle has ulcerations on the ankle and dorsum of the left foot in various stages of healing with surrounding erythema - LYMPH: No cervical lymphadenopathy. Objective Data Vital Signs Vital Signs: Vital Signs - 24 hr 05/22/25 14:00 05/22/25 21:23 05/23/25 06:00 Temperature 97.5 F L 97.5 F L 97.5 F L Pulse Rate 91 84 91 Respiratory Rate 18 16 16 Blood Pressure 113/60 108/69 123/65 Pulse Oximetry 96 99 95 Oxygen Delivery 05/23/25 08:42 05/23/25 08:42 Temperature Pulse Rate 95 95 Respiratory Rate 20 20 Blood Pressure Pulse Oximetry 94 Oxygen Delivery Room Air Intake/Output Intake/Output: Intake & Output 05/20/25 05/21/25 05/22/25 05/23/25 23:59 23:59 23:59 23:59 Intake Total 2170 3130 1632.5 440 Output Total 1125 1356 301 1498 Balance 1045 2080 1332.5 -610 Meds/Results Medications: Active Medications Generic Name Dose Route Start Last Admin Trade Name Freq PRN Reason Stop Dose Admin Acetaminophen 650 mg 05/17/25 03:55 05/21/25 20:29 Acetaminophen 325 Mg Tablet PO 650 mg Q4H PRN Administration Mild Pain (1-3) or Fever Albuterol 2.5 mg 05/18/25 13:00 Albuterol Sulfate Neb 2.5 Mg/3 Ml Inh INHALATION Q4HRT PRN Shortness Of Breath Albuterol 2 puff 05/19/25 13:40 Albuterol Sulfate (*Sp) Aerosol 1 Puff INHALATION Q4H PRN shortness of breath or wheezing Aspirin 81 mg 05/18/25 13:00 05/23/25 08:51 Aspirin 81 Mg Chewable Tablet PO 81 mg DAILY@0800 ELISSA Administration Atorvastatin Calcium 20 mg 05/18/25 21:00 05/22/25 22:10 Atorvastatin 20 Mg Tablet PO 20 mg HS ELISSA Administration Calcium Carbonate 200 mg 05/22/25 12:20 05/22/25 16:58 Calcium Carbonate (Tums) 500 Mg (200 Mg Elemental) PO 200 mg Q6H PRN Administration Indigestion Dextrose 12.5 gm 05/17/25 07:55 Dextrose 50% 25 Gm/50 Ml Syringe IV PUSH PRN PRN Hypoglycemia Protocol Diclofenac Sodium 1 applic 05/18/25 18:21 05/20/25 17:11 Diclofenac Sodium 1% 100 Gm Gel (*Bkc) TOPICAL 1 applic QID PRN Administration Muscle/Joint Pain Fluticasone/Umeclidinium/Vilanterol 1 puff 05/18/25 13:05 05/23/25 08:42 Fluticasone/Umeclidin/Vilanter 200-62.5-25 Mcg Ellipta INHALATION 1 puff DAILYRT ELISSA Administration Folic Acid 1 mg 05/20/25 09:00 05/23/25 08:53 Folic Acid 1 Mg Tablet PO 1 mg DAILY ELISSA Administration Gabapentin 600 mg 05/18/25 13:00 05/23/25 08:50 Gabapentin 300 Mg Capsule PO 600 mg TID ELISSA Administration Glucagon 1 mg 05/17/25 07:55 Glucagon For Inj 1 Mg Vial IM PRN PRN Hypoglycemia Protocol Glucose 15 gm 05/17/25 07:55 Glucose Oral Gel 15 Gm Of Glucse In 37.5 Gm Tube PO PRN PRN Hypoglycemia Protocol Dextrose 1,000 mls @ 100 mls/hr 05/17/25 07:55 Dextrose 5% 1,000 Ml IVPB PRN PRN Hypoglycemia Protocol Meropenem 1 gm/ Sodium 100 mls @ 200 mls/hr 05/22/25 14:30 05/23/25 05:46 Chloride IVPB 06/01/25 06:29 200 mls/hr Q8HR ELISSA Administration Insulin Aspart 4 - 8 units 05/17/25 08:00 05/23/25 12:01 Insulin Aspart (*Bkc) 100 Units/Ml SUB-Q Not Given TIDWM ELISSA Protocol Insulin Aspart 2 - 4 units 05/17/25 21:00 05/22/25 22:10 Insulin Aspart (*Bkc) 100 Units/Ml SUB-Q Not Given HS [facility] Protocol Insulin Glargine 14 units 05/17/25 21:00 05/22/25 22:09 Insulin Glargine (*Bkc) 100 Units/Ml 0.15 units/kg (14 units) 14 units SUB-Q Administration HS [facility] Linezolid 600 mg 05/22/25 19:00 05/23/25 08:53 Linezolid 600 Mg Tablet PO 05/24/25 21:01 600 mg Q12HR ELISSA Administration Lisinopril 10 mg 05/18/25 13:05 05/23/25 08:51 Lisinopril 10 Mg Tablet PO 10 mg DAILY ELISSA Administration Lorazepam 0.5 mg 05/21/25 15:12 05/22/25 13:28 Lorazepam (*Crx) 0.5 Mg Tablet PO 0.5 mg ONCE PRN Administration MRI ANXIETY Meloxicam 15 mg 05/20/25 09:00 05/23/25 08:51 Meloxicam 7.5 Mg Tablet PO 15 mg DAILY ELISSA Administration Ondansetron HCl 4 mg 05/17/25 03:55 Ondansetron Inj 4 Mg/2 Ml Vial IV PUSH Q4H PRN Nausea Oxycodone/Acetaminophen 1.5 tablet 05/21/25 11:30 05/23/25 08:52 Oxycodone/Acetaminophen (*Crx) 5-325 Mg Tablet PO 1.5 tablet Q4H PRN Administration Pain Rated 7-10 Pantoprazole Sodium 40 mg 05/23/25 09:00 05/23/25 08:51 Pantoprazole 40 Mg Tablet PO 40 mg QAM ELISSA Administration Polyethylene Glycol 17 gm 05/22/25 09:00 05/23/25 08:53 Polyethylene Glycol 3350 17 Gm Powd.Pack PO Not Given QAM ELISSA Sodium Chloride 10 ml 05/22/25 22:00 05/23/25 06:49 Saline Lock Flush IV PUSH 10 ml Q8HR ELISSA Administration Sodium Chloride 10 ml 05/22/25 16:18 Saline Lock Flush IV PUSH PRN PRN Flush Sodium Chloride 20 ml 05/22/25 16:18 Saline Lock Flush IV PUSH PRN PRN after blood draws Radiology Results: ITS Impressions Shoulder X-Ray 05/17/25 07:38 Impression: 1: No acute fracture. Ankle X-Ray 05/17/25 07:43 Impression: 1: Periosteal reaction distal aspect of the tibia and fibula with moderate diffuse soft tissue swelling of the ankle and foot. Skin thickening is present anteriorly overlying the ankle and foot. Consider osteomyelitis in the appropriate clinical setting versus reactive changes secondary to cellulitis. Recommend correlation with MRI with contrast to exclude osteomyelitis. Foot X-Ray 05/17/25 07:43 Impression: 1: Periosteal reaction distal aspect of the tibia and fibula with moderate diffuse soft tissue swelling of the ankle and foot. Skin thickening is present anteriorly overlying the ankle and foot. Consider osteomyelitis in the appropriate clinical setting versus reactive changes secondary to cellulitis. Recommend correlation with MRI with contrast to exclude osteomyelitis. Knee X-Ray 05/17/25 07:45 Impression: 1: No acute fracture. Limited study. 2: Small joint effusion. Foot MRI 05/19/25 16:22 IMPRESSION: 1. Relatively symmetric appearance of chronic periosteal reaction along the distal metadiaphyseal regions of the tibia and fibula without associated marrow signal changes and with similarly symmetric skin thickening at the ankle and dorsum of the hindfoot as seen at the contralateral foot and ankle should be most consistent with changes of chronic venous stasis with likely venous stasis ulcer at the medial aspect of the distal right lower leg. Differential for the periosteal reaction would include less likely hypertrophic pulmonary osteoarthropathy. No abscess or lesion suspicious for osteomyelitis in the right hind foot or ankle. 2. Subchondral edema-like signal change and enhancement without cortical erosions, loss of T1 marrow fat signal without joint effusions at the right ank le, subtalar, talonavicular and calcaneocuboid joints similar to that previously seen at the left foot and ankle which could be due to osteoarthritis, inflammatory arthritis, transient osteoporosis or less likely complex regional pain syndrome. 3. Mild right Achilles tendinosis and mild peritendinitis. Duplex Scan Lower Extremity Artery 05/22/25 08:17 IMPRESSION: 1. Normal brisk systolic upstrokes throughout the arteries of the bilateral lower limbs with no evident hemodynamically significant stenosis by Doppler or grayscale imaging. Shoulder MRI 05/22/25 14:21 IMPRESSION: 1. Evaluation moderately limited by motion artifact present to some degree on all sequences. 2. Constellation of findings suggesting sequela of chronic anterior shoulder dislocation with chronic appearing shallow Hill-Sachs fracture trough at the humeral head and with low to moderate grade chondromalacia and degenerative tearing of the glenoid labrum at the anteroinferior glenoid. 3. Mild subscapularis tendinopathy without discrete tear. 4. Small left glenohumeral joint effusion and minimal subacromial/subdeltoid bursitis. Labs Labs: Laboratory Results - last 24 hr 05/22/25 05/22/25 05/23/25 16:25 22:19 06:06 WBC 9.8 RBC 4.13 L Hgb 10.7 L Hct 33.8 L MCV 81.8 MCH 25.9 L MCHC 31.7 L RDW 14.2 Plt Count 456 H MPV 8.7 Immature Gran % (Auto) 0.6 H Neut % (Auto) 67.0 Lymph % (Auto) 13.2 L [place] % (Auto) 13.2 H Eos % (Auto) 5.6 H Baso % (Auto) 0.4 Lymph # (Auto) 1.29 [place] # (Auto) 1.3 H Eos # (Auto) 0.6 H Baso # (Auto) 0.0 Abs Immat Gran (auto) 0.06 H Absolute Neuts (auto) 6.5 Absolute Nucleated RBC 0.000 Nucleated RBC % 0.0 Sodium 128 L Potassium 3.8 Chloride 94 L Carbon Dioxide 30 Anion Gap 4 BUN 8 L Creatinine 0.48 L Estim Creat Clear Calc 142 Estimated GFR > 60 Glucose 121 H POC Capillary Glucose 109 H 159 H Calcium 9.0 Magnesium 1.6 Total Bilirubin 0.2 AST 35 ALT 28 Alkaline Phosphatase 88 Total Protein 6.1 L Albumin 2.9 L 05/23/25 05/23/25 08:14 11:27 WBC RBC Hgb Hct MCV MCH MCHC RDW Plt Count MPV Immature Gran % (Auto) Neut % (Auto) Lymph % (Auto) [place] % (Auto) Eos % (Auto) Baso % (Auto) Lymph # (Auto) [place] # (Auto) Eos # (Auto) Baso # (Auto) Abs Immat Gran (auto) Absolute Neuts (auto) Absolute Nucleated RBC Nucleated RBC % Sodium Potassium Chloride Carbon Dioxide Anion Gap BUN Creatinine Estim Creat Clear Calc Estimated GFR Glucose POC Capillary Glucose 123 H 153 H Calcium Magnesium Total Bilirubin AST ALT Alkaline Phosphatase Total Protein Albumin
[2025-05-23 14:00] VITALS: BP 104/72; PULSE 90; RESP 16; TEMP 36.6; O2SAT 97
--- NOTE | 2025-05-23 16:44 | PM.CNOR ---
Assessment and Plan Assessment and plan (1) Arthritis of left shoulder: Code(s): M19.012 - Primary osteoarthritis, left shoulder Status: Acute Assessment and Plan: colorful gentleman with multiple medical problems with left shoulder pain. History of left shoulder dislocation with relocation 1 year ago. Degenerative changes noted on radiographs and MRI. No acute changes seen. Recommend conservative treatment, therapy. May follow-up with Orthopedics on as an outpatient. (2) Left shoulder pain: Qualifiers: Chronicity: acute Qualified Code(s): M25.512 - Pain in left shoulder Code(s): M25.512 - Pain in left shoulder Status: Acute History of Present Illness HPI Consult date: 05/23/25 Requesting physician: Anders Parmar MD Chief complaint: shoulder pain Narrative: 64-year-old admitted for lower extremity venous ulcers. While in the hospital was noted to have left shoulder pain. Patient reports history of left shoulder dislocation May of last year while he was in the hospital in [place]. Was doing relatively well until about 2 months ago when he noted increased pain in the shoulder which has persisted. He denies numbness or tingling. He is [id number]. 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 Review of Systems Constitutional: Constitutional: Denies fever(s) Eyes: Eyes: Denies blurry vision ENT: Reports Normal hearing present Cardiovascular: Cardiovascular: Denies chest pain and Denies dyspnea Respiratory: Respiratory: Denies dyspnea and Denies wheezing Gastrointestinal: Gastrointestinal: Denies abdominal pain Genitourinary: Genitourinary: Denies urinary urgency Musculoskeletal: Musculoskeletal: Reports as per HPI and Denies numbness Integumentary/Breasts: Skin/Breast: Denies changing lesions and Denies sores Neurologic: Reports Normal hearing present, Denies behavioral changes, Denies confusion, Denies numbness and Denies convulsions Psychiatric: Psychiatric: Denies behavioral changes, Denies confusion and Denies hallucinations Endocrine: Endocrine: Denies heat intolerance Hematologic/Lymphatic: Hematologic/Lymphatic: Denies easy bleeding Allergic/Immunologic: Allergic/Immunologic: Denies wheezing PMFSH Past Medical History Medical History (Updated 05/23/25 @ 16:48 by Indio Wolfe MD) Left shoulder pain Arthritis of left shoulder Hypertension PVD (peripheral vascular disease) Dyspnea GERD (gastroesophageal reflux disease) Effusion, left elbow SOB (shortness of breath) on exertion Dyslipidemia Elevated serum alkaline phosphatase level Thrombocytosis Chronic skin ulcer of lower leg Neutrophilic leukocytosis Hyponatremia Chronic right shoulder pain Type 2 diabetes mellitus without complication, without long-term current use of insulin Essential (primary) hypertension Rheumatoid arthritis with positive rheumatoid factor Jaundice infant Hemorrhoids Headache Bronchitis Arthritis Asthma Family History Family History Other Diabetes mellitus Family history of lung cancer Hypertension Social History Social History Smoking status: Former smoker Tobacco type: cigarettes Second hand tobacco smoke exposure: No Smoking end date: 10/26/12 Alcohol intake: never Substance use: never Substance use type: does not use Do You Feel Safe in your Home?: Yes Lack of Transportation: No Lack of Food: Never True Current Housing: I Have Housing Concerned About Future Housing: YES Difficulty Paying Gas/Electric Bills: No Difficulty Paying for Meds: No Currently Unemployed: No Education: High School Diploma/GED Difficulty w/ Childcare or Family Care: No Living arrangements: with family Gender identity (if verbalized by the patient): Male Sexual Orientation (if Verbalized by the Patient): Straight or Heterosexual Spiritual care concerns: No Agree to blood products: Yes Meds Home Medications and Allergies Home Medications ?Medication ?Instructions ?Recorded ?Confirmed ?Type fluticasone fur. 200 mcg-umeclid 1 inh inhalation DAILY #28 ea 04/01/22 05/17/25 Rx 62.5 mcg-vilant 25 mcg inhalat.powder (Trelegy Ellipta) albuterol sulfate 90 mcg/actuation 2 inh inhalation Q4H PRN shortness 03/07/24 05/17/25 Rx aerosol inhaler of breath or wheezing #8.5 grams silver sulfadiazine 1 % topical 1 applic topical BID #400 grams 07/26/24 05/17/25 Rx cream folic acid 1 mg tablet See Rx Instructions .Route 09/08/24 05/17/25 Rx .COMPLEX #90 tabs aspirin 81 mg tablet,delayed 81 mg PO DAILY #90 tabs 09/09/24 05/17/25 Rx release atorvastatin 20 mg tablet See Rx Instructions .Route 09/09/24 05/17/25 Rx .COMPLEX #90 tabs glipizide 5 mg tablet 5 mg PO DAILY #90 tabs 09/09/24 05/17/25 Rx lisinopril 10 mg tablet 10 mg PO DAILY #90 tabs 12/08/24 05/17/25 Rx gabapentin 300 mg capsule See Rx Instructions .Route 03/09/25 05/17/25 Rx .COMPLEX #540 caps meloxicam 15 mg tablet 15 mg PO DAILY 05/17/25 05/17/25 History metformin 500 mg tablet,extended 2,000 mg PO DAILY 05/17/25 05/17/25 History release 24 hr omeprazole 20 mg capsule,delayed 20 mg PO DAILY 05/22/25 05/22/25 History release Allergies Allergy/AdvReac Type Severity Reaction Status Date / Time No Known Allergies Allergy Mild Verified 05/17/25 06:45 Vital Signs Vital Signs - 24 hr 05/22/25 21:23 05/23/25 06:00 05/23/25 08:42 Temperature 97.5 F L 97.5 F L Pulse Rate 84 91 95 Respiratory Rate 16 16 20 Blood Pressure 108/69 123/65 Pulse Oximetry 99 95 94 Oxygen Delivery Room Air 05/23/25 08:42 05/23/25 14:00 Temperature 97.9 F Pulse Rate 95 90 Respiratory Rate 20 16 Blood Pressure 104/72 Pulse Oximetry 97 Oxygen Delivery Exam Const: General: healthy appearing; No in distress or confusion Orientation/consciousness: oriented to person, oriented to place, oriented to time and No confusion HENMT: Head: normal to inspection, normocephalic and atraumatic Eyes: Conjunctivae: conjunctivae normal Sclera: sclerae normal Neck: Neck: supple and nontender Resp: Effort & Inspection: normal respiratory effort and no audible wheezes Cardio: Rate: regular rate Rhythm: regular rhythm Skin: General skin exam: no rashes or lesions noted Neuro: General: oriented to person, oriented to place, oriented to time and No confusion Extrem: Right upper extremity: shoulder/upper arm axillary nerve sensory function normal, normal ROM (FF 130, Abd 120, ER 70, IR T7) and other (RC 5/5, Bicep 5/5, Deltoid 5/5, ER 5/5); no tenderness and no swelling, elbow/forearm normal ROM; no tenderness and no swelling, wrist normal ROM and radial pulse present; no tenderness and Extremity exam: right hand neuromotor exam normal wrist extension normal, thumb opposition normal, thumb IP flexion normal and fingers 2-5 ABduction normal, neurosensory exam normal radial nerve sensory function normal, ulnar nerve sensory function normal, median nerve sensory function normal and digital nerve sensory function normal and vascular exam radial pulse present and normal capillary refill; no tenderness, no swelling and no crepitus Left upper extremity: normal to inspection, shoulder/upper arm inspection abnormal, tenderness of the A-C joint, of the proximal humerus, over the subacromial bursa and other (anterolateral acromion, gh joint), axillary nerve sensory function normal, abnormal ROM pain with active ROM in ABduction and in internal rotation, pain with passive ROM in internal rotation and external rotation- and with range as follows (FF 100, Abd 80, ER 30, IR hip) and other (RC 4/5, Bicep 4/5, Deltoid 5-/5, ER 4/5); no swelling, elbow/forearm normal ROM; no tenderness and no swelling, wrist normal ROM and radial pulse present; no tenderness and hand neuromotor exam normal Details: wrist extension normal and thumb IP flexion normal, neurosensory exam normal Details: radial nerve sensory function normal, ulnar nerve sensory function normal and median nerve sensory function normal, tendon exam normal Location: of all digits and vascular exam normal capillary refill; no tenderness Psych: Affect: normal affect Results Labs 05/23/25 06:06 05/23/25 06:06 Labs: Abnormal lab results 05/22/25 05/23/25 05/23/25 Range/Units 22:19 06:06 08:14 RBC 4.13 L (4.6-6.20) M/mm3 Hgb 10.7 L (14.0-18.0) g/dL Hct 33.8 L (42.0-52.0) % MCH 25.9 L (26-34) pg MCHC 31.7 L (32-36) g/dl Plt Count 456 H (150-375) k/mm3 Immature Gran % (Auto) 0.6 H (0-0.5) % Lymph % (Auto) 13.2 L (18.3-44.2) % [place] % (Auto) 13.2 H (2.6-8.5) % Eos % (Auto) 5.6 H (0-4.4) % [place] # (Auto) 1.3 H (0.1-0.6) K/mm3 Eos # (Auto) 0.6 H (0-0.3) K/mm3 Abs Immat Gran (auto) 0.06 H (0.00-0.031) K/mm3 Sodium 128 L (137-145) mmol/L Chloride 94 L (98-107) mmol/L BUN 8 L (9-20) mg/dL Creatinine 0.48 L (0.7-1.3) mg/dL Glucose 121 H (65-110) mg/dL POC Capillary Glucose 159 H 123 H (65-105) mg/dl Total Protein 6.1 L (6.3-8.2) g/dL Albumin 2.9 L (3.5-5.1) g/dL 05/23/25 05/23/25 Range/Units 11:27 16:28 RBC (4.6-6.20) M/mm3 Hgb (14.0-18.0) g/dL Hct (42.0-52.0) % MCH (26-34) pg MCHC (32-36) g/dl Plt Count (150-375) k/mm3 Immature Gran % (Auto) (0-0.5) % Lymph % (Auto) (18.3-44.2) % [place] % (Auto) (2.6-8.5) % Eos % (Auto) (0-4.4) % [place] # (Auto) (0.1-0.6) K/mm3 Eos # (Auto) (0-0.3) K/mm3 Abs Immat Gran (auto) (0.00-0.031) K/mm3 Sodium (137-145) mmol/L Chloride (98-107) mmol/L BUN (9-20) mg/dL Creatinine (0.7-1.3) mg/dL Glucose (65-110) mg/dL POC Capillary Glucose 153 H 140 H (65-105) mg/dl Total Protein (6.3-8.2) g/dL Albumin (3.5-5.1) g/dL H & H 05/17/25 05/18/25 05/20/25 Range/Units 06:10 05:50 05:21 Hgb 14.2 10.9 L D 10.8 L (14.0-18.0) g/dL Hct 46.2 34.6 L 34.7 L (42.0-52.0) % 05/22/25 05/23/25 Range/Units 05:48 06:06 Hgb 10.4 L 10.7 L (14.0-18.0) g/dL Hct 33.8 L 33.8 L (42.0-52.0) % All other labs normal. Diagnostic results Shoulder x-ray: image reviewed ( moderate degenerative changes glenohumeral joint with high-riding humeral head. No acute changes.) Shoulder MRI: image reviewed ( Rotator cuff degenerative changes, bicep tendon degenerative changes with humeral head changes consistent with previous dislocation , now with glenohumeral joint reduced but with high riding humeral head. No acute changes noted.)
[2025-05-23] MEDS: ATORVASTATIN 20 MG TABLET PO (21:26)
[2025-05-23] MEDS: INSULIN GLARGINE (*BKC) 100 UNITS/ML 14 UNITS SUB-Q (21:31)
[2025-05-23 21:54] VITALS: BP 91/59; PULSE 81; RESP 12; TEMP 36.6; O2SAT 99
[2025-05-23 21:59] VITALS: O2SAT 99
[2025-05-24] MEDS: SALINE LOCK FLUSH 10 ML IV PUSH ×3 (05:42→21:26)
[2025-05-24] MEDS: MEROPENEM 1 GM in SODIUM CHLORIDE 0.9% IV 100 ML 200 ML IVPB ×3 (05:42→21:09)
[2025-05-24 06:00] VITALS: BP 147/78; PULSE 80; RESP 16; TEMP 36.6; O2SAT 95
[2025-05-24] MEDS: FOLIC ACID 1 MG TABLET PO (07:32)
[2025-05-24] MEDS: MELOXICAM 7.5 MG TABLET 15 MG PO (07:32)
[2025-05-24] MEDS: PANTOPRAZOLE 40 MG TABLET PO (07:32)
[2025-05-24] MEDS: GABAPENTIN 300 MG CAPSULE 600 MG PO ×3 (07:32→17:15)
[2025-05-24] MEDS: ASPIRIN 81 MG CHEWABLE TABLET PO (07:32)
[2025-05-24] MEDS: LINEZOLID 600 MG TABLET PO ×2 (07:32→21:09)
[2025-05-24 08:39] VITALS: PULSE 78; RESP 16; O2SAT 92
[2025-05-24] MEDS: FLUTICASONE/UMECLIDIN/VILANTER 200-62.5-25 MCG ELLIPTA 1 PUFF INHALATION (08:39)
[2025-05-24 10:00] LABS: Albumin Level 2.9 g/dL (3.5-5.1); Anion Gap 5 mmol/L (4-12); Blood Urea Nitrogen 11 mg/dL (9-20); CRP > 9.0 mg/dL (<1.0); Calcium 8.9 mg/dL (8.4-10.2); Carbon Dioxide 29 mmol/L (22-30); Chloride 97 mmol/L (98-107); Estimated CRCL calculation 125 ml/min; Estimated Glomerular Filt Rate > 60; Glucose 124 mg/dL (65-110); Potassium 4.1 mmol/L (3.4-5.0); Sodium 131 mmol/L (137-145)
[2025-05-24 10:32] LABS: Hemoglobin A1C 6.2 % (<5.7)
[2025-05-24 14:00] VITALS: BP 108/60; PULSE 92; RESP 20; TEMP 36.2; O2SAT 99
[2025-05-24] MEDS: ENOXAPARIN 40 MG/0.4 ML SYRINGE SUB-Q (17:15)
--- NOTE | 2025-05-24 17:54 | P.PNIM_ITS ---
Progress Note: A&P Assessment and Plan (1) Cellulitis of both lower extremities: Code(s): L03.115 - Cellulitis of right lower limb; L03.116 - Cellulitis of left lower limb Status: Acute Assessment and Plan: Patient with cellulitis lower extremities present on admission. Wound infection prominently right lower extremity. Right ankle x-ray showed extensive skin thickening dorsum of the foot and anterior margin of the ankle. Periosteal reaction of the distal aspect of the fibula and tibia. These findings are suspicious for underlying osteomyelitis with cellulitis. Left ankle/foot xray with periosteal reaction distal aspect of the tibia and fibula with moderate diffuse soft tissue swelling of the ankle and foot. Skin thickening is present anteriorly overlying the ankle and foot. Consider osteomyelitis in the appropriate clinical setting versus reactive changes secondary to cellulitis. Recommend MRI Started on vancomycin and cefepime Bilateral Foot MRI showing no osteomyelitis. Orthopedics and General surgery folowing. BCx growing Staph haemolytics and Staph epidermidis in one set. 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 Bacteremia with MRSE. He was switched to linezolid to complete 7 days course. (2) Bacteremia: Code(s): R78.81 - Bacteremia Status: Acute Assessment and Plan: As above (3) Diabetic ulcer of both feet: Code(s): E11.621 - Type 2 diabetes mellitus with foot ulcer; L97.519 - Non-pressure chronic ulcer of other part of right foot with unspecified severity; L97.529 - Non-pressure chronic ulcer of other part of left foot with unspecified severity Status: Acute Assessment and Plan: As above (4) Left shoulder pain: Qualifiers: Chronicity: acute Qualified Code(s): M25.512 - Pain in left shoulder Code(s): M25.512 - Pain in left shoulder Status: Acute Assessment and Plan: left shoulder pain with restricted ROM. Xray shoulder with subluxation likely due to rotator cuff tear. MRI with findings of chronic anterior shoulder dislocation with chronic appearing Hill-Sachs fracture through at the humeral head and low to moderate grade chondromalacia and degenerative tearing of the glenoid labrum at the anterior inferior glenoid subscapularis tendinopathy without discrete tear. Bursitis oted. Ortho consulted and appreciate their input. (5) Type 2 diabetes mellitus without complication, without long-term current use of insulin: Code(s): E11.9 - Type 2 diabetes mellitus without complications Status: Acute Assessment and Plan: The patient's blood glucose was reviewed on 05/24 Glucose remains well controlled. Continue AccuCheks covering with sliding scale. Hypoglycemia protocol available as needed. Continue to monitor on Lantus. Holding home oral meds. Check A1c. (6) COPD (chronic obstructive pulmonary disease): Code(s): J44.9 - Chronic obstructive pulmonary disease, unspecified Status: Acute Assessment and Plan: Stable. No wheezing. Remains on room air Continue Trelegy (7) Essential (primary) hypertension: Code(s): I10 - Essential (primary) hypertension Status: Acute Assessment and Plan: Patient's blood pressure was reviewed on 05/24 Blood pressure remains well controlled. Will continue to monitor (8) Chronic venous stasis dermatitis of both lower extremities: Code(s): I87.2 - Venous insufficiency (chronic) (peripheral) Status: Acute Assessment and Plan: Stable (9) GERD (gastroesophageal reflux disease): Qualifiers: Esophagitis presence: esophagitis presence not specified Qualified Code(s): K21.9 - Gastro-esophageal reflux disease without esophagitis Code(s): K21.9 - Gastro-esophageal reflux disease without esophagitis Status: Acute Assessment and Plan: Stable. Continue PPI therapy. Plan PAD - Recent arterial duplex with mild infrapopliteal peripheral vascular disease noted. OA - Knee arthritis with some contractures lower extremities DVT Prophylaxis - add Lovenox Code status - full Disp - placement being arranged vs home with home health Subjective Date/time seen: 05/24/25 17:54 Interval history: Assuming care. Chart reviewed. Complains of pain in his knees, upper back and bilateral (L>R) shoulders. No calf pain. No CP or SOB. He denies having a CVA. Exam Narrative: AF 97.2 108/60 92 20 99% ra Gen - NARD Chest - CTA bilaterally, nml RR CV - RRR S1/S2 Abd - Soft, NT/ND, Positive BS Ext - Negative Homans. Bilateral ankle dressings clean, dry and intact. Neuro - Alert and appropriate. 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 Psych - Nml mood and affect Skin - Warm and dry Objective Data Vital Signs Vital Signs: Vital Signs - 24 hr 05/23/25 21:54 05/23/25 21:59 05/24/25 06:00 Temperature 97.8 F 97.8 F Pulse Rate 81 80 Respiratory Rate 12 16 Blood Pressure 91/59 L 147/78 H Pulse Oximetry 99 99 95 Oxygen Delivery Room Air 05/24/25 08:00 05/24/25 08:39 05/24/25 08:39 Temperature Pulse Rate 78 Respiratory Rate 16 Blood Pressure Pulse Oximetry 92 Oxygen Delivery Room Air Room Air 05/24/25 14:00 Temperature 97.2 F L Pulse Rate 92 Respiratory Rate 20 Blood Pressure 108/60 Pulse Oximetry 99 Oxygen Delivery Intake/Output Intake/Output: Intake & Output 05/21/25 05/22/25 05/23/25 05/24/25 23:59 23:59 23:59 23:59 Intake Total 3130 1632.5 1100 1068 Output Total 4404 525 0127 2200 Balance 2080 1332.5 -450 1132 Meds/Results Medications: Active Medications Generic Name Dose Route Start Last Admin Trade Name Freq PRN Reason Stop Dose Admin Acetaminophen 650 mg 05/17/25 03:55 05/21/25 20:29 Acetaminophen 325 Mg Tablet PO 650 mg Q4H PRN Administration Mild Pain (1-3) or Fever Albuterol 2.5 mg 05/18/25 13:00 Albuterol Sulfate Neb 2.5 Mg/3 Ml Inh INHALATION Q4HRT PRN Shortness Of Breath Albuterol 2 puff 05/19/25 13:40 Albuterol Sulfate (*Sp) Aerosol 1 Puff INHALATION Q4H PRN shortness of breath or wheezing Aspirin 81 mg 05/18/25 13:00 05/24/25 07:32 Aspirin 81 Mg Chewable Tablet PO 81 mg DAILY@0800 ELISSA Administration Atorvastatin Calcium 20 mg 05/18/25 21:00 05/23/25 21:26 Atorvastatin 20 Mg Tablet PO 20 mg HS ELISSA Administration Calcium Carbonate 200 mg 05/22/25 12:20 05/22/25 16:58 Calcium Carbonate (Tums) 500 Mg (200 Mg Elemental) PO 200 mg Q6H PRN Administration Indigestion Dextrose 12.5 gm 05/17/25 07:55 Dextrose 50% 25 Gm/50 Ml Syringe IV PUSH PRN PRN Hypoglycemia Protocol Diclofenac Sodium 1 applic 05/18/25 18:21 05/20/25 17:11 Diclofenac Sodium 1% 100 Gm Gel (*Bkc) TOPICAL 1 applic QID PRN Administration Muscle/Joint Pain Enoxaparin Sodium 40 mg 05/25/25 09:00 Enoxaparin 40 Mg/0.4 Ml Syringe SUB-Q DAILY ELISSA Fluticasone/Umeclidinium/Vilanterol 1 puff 05/18/25 13:05 05/24/25 08:39 Fluticasone/Umeclidin/Vilanter 200-62.5-25 Mcg Ellipta INHALATION 1 puff DAILYRT ELISSA Administration Folic Acid 1 mg 05/20/25 09:00 05/24/25 07:32 Folic Acid 1 Mg Tablet PO 1 mg DAILY ELISSA Administration Gabapentin 600 mg 05/18/25 13:00 05/24/25 17:15 Gabapentin 300 Mg Capsule PO 600 mg TID ELISSA Administration Glucagon 1 mg 05/17/25 07:55 Glucagon For Inj 1 Mg Vial IM PRN PRN Hypoglycemia Protocol Glucose 15 gm 05/17/25 07:55 Glucose Oral Gel 15 Gm Of Glucse In 37.5 Gm Tube PO PRN PRN Hypoglycemia Protocol Dextrose 1,000 mls @ 100 mls/hr 05/17/25 07:55 Dextrose 5% 1,000 Ml IVPB PRN PRN Hypoglycemia Protocol Meropenem 1 gm/ Sodium 100 mls @ 200 mls/hr 05/22/25 14:30 05/24/25 14:23 Chloride IVPB 06/01/25 06:29 Infused Q8HR [facility] Infusion Insulin Aspart 4 - 8 units 05/17/25 08:00 05/24/25 16:45 Insulin Aspart (*Bkc) 100 Units/Ml SUB-Q Not Given TIDWM [facility] Protocol Insulin Aspart 2 - 4 units 05/17/25 21:00 05/23/25 21:32 Insulin Aspart (*Bkc) 100 Units/Ml SUB-Q Not Given HS [facility] Protocol Insulin Glargine 14 units 05/17/25 21:00 05/23/25 21:31 Insulin Glargine (*Bkc) 100 Units/Ml 0.15 units/kg (14 units) 14 units SUB-Q Administration HS [facility] Linezolid 600 mg 05/22/25 19:00 05/24/25 07:32 Linezolid 600 Mg Tablet PO 05/24/25 21:01 600 mg Q12HR ELISSA Administration Lisinopril 10 mg 05/18/25 13:05 05/24/25 07:32 Lisinopril 10 Mg Tablet PO 10 mg DAILY ELISSA Administration Lorazepam 0.5 mg 05/21/25 15:12 05/22/25 13:28 Lorazepam (*Crx) 0.5 Mg Tablet PO 0.5 mg ONCE PRN Administration MRI ANXIETY Meloxicam 15 mg 05/20/25 09:00 05/24/25 07:32 Meloxicam 7.5 Mg Tablet PO 15 mg DAILY ELISSA Administration Ondansetron HCl 4 mg 05/17/25 03:55 Ondansetron Inj 4 Mg/2 Ml Vial IV PUSH Q4H PRN Nausea Oxycodone/Acetaminophen 1.5 tablet 05/21/25 11:30 05/23/25 14:14 Oxycodone/Acetaminophen (*Crx) 5-325 Mg Tablet PO 1.5 tablet Q4H PRN Administration Pain Rated 7-10 Pantoprazole Sodium 40 mg 05/23/25 09:00 05/24/25 07:32 Pantoprazole 40 Mg Tablet PO 40 mg QAM ELISSA Administration Polyethylene Glycol 17 gm 05/22/25 09:00 05/24/25 07:33 Polyethylene Glycol 3350 17 Gm Powd.Pack PO Not Given QAM ELISSA Sodium Chloride 10 ml 05/22/25 22:00 05/24/25 13:54 Saline Lock Flush IV PUSH 10 ml Q8HR ELISSA Administration Sodium Chloride 10 ml 05/22/25 16:18 Saline Lock Flush IV PUSH PRN PRN Flush Sodium Chloride 20 ml 05/22/25 16:18 Saline Lock Flush IV PUSH PRN PRN after blood draws Radiology Results: ITS Impressions Shoulder X-Ray 05/17/25 07:38 Impression: 1: No acute fracture. Ankle X-Ray 05/17/25 07:43 Impression: 1: Periosteal reaction distal aspect of the tibia and fibula with moderate diffuse soft tissue swelling of the ankle and foot. Skin thickening is present anteriorly overlying the ankle and foot. Consider osteomyelitis in the appropriate clinical setting versus reactive changes secondary to cellulitis. Recommend correlation with MRI with contrast to exclude osteomyelitis. Foot X-Ray 05/17/25 07:43 Impression: 1: Periosteal reaction distal aspect of the tibia and fibula with moderate diffuse soft tissue swelling of the ankle and foot. Skin thickening is present anteriorly overlying the ankle and foot. Consider osteomyelitis in the appropriate clinical setting versus reactive changes secondary to cellulitis. Recommend correlation with MRI with contrast to exclude osteomyelitis. Knee X-Ray 05/17/25 07:45 Impression: 1: No acute fracture. Limited study. 2: Small joint effusion. Foot MRI 05/19/25 16:22 IMPRESSION: 1. Relatively symmetric appearance of chronic periosteal reaction along the distal metadiaphyseal regions of the tibia and fibula without associated marrow signal changes and with similarly symmetric skin thickening at the ankle and dorsum of the hindfoot as seen at the contralateral foot and ankle should be most consistent with changes of chronic venous stasis with likely venous stasis ulcer at the medial aspect of the distal right lower leg. Differential for the periosteal reaction would include less likely hypertrophic pulmonary osteoarthropathy. No abscess or lesion suspicious for osteomyelitis in the right hind foot or ankle. 2. Subchondral edema-like signal change and enhancement without cortical erosions, loss of T1 marrow fat signal without joint effusions at the right ankle, subtalar, talonavicular and calcaneocuboid joints similar to that previously seen at the left foot and ankle which could be due to osteoarthritis, inflammatory arthritis, transient osteoporosis or less likely complex regional pain syndrome. 3. Mild right Achilles tendinosis and mild peritendinitis. Duplex Scan Lower Extremity Artery 05/22/25 08:17 IMPRESSION: 1. Normal brisk systolic upstrokes throughout the arteries of the bilateral lower limbs with no evident hemodynamically significant stenosis by Doppler or grayscale imaging. Shoulder MRI 05/22/25 14:21 IMPRESSION: 1. Evaluation moderately limited by motion artifact present to some degree on all sequences. 2. Constellation of findings suggesting sequela of chronic anterior shoulder dislocation with chronic appearing shallow Hill-Sachs fracture trough at the humeral head and with low to moderate grade chondromalacia and degenerative tearing of the glenoid labrum at the anteroinferior glenoid. 3. Mild subscapularis tendinopathy without discrete tear. 4. Small left glenohumeral joint effusion and minimal subacromial/subdeltoid bursitis. Venous Doppler Study 05/24/25 17:07 IMPRESSION: Patent bilateral lower extremity veins. No evidence of deep venous thrombosis. Labs Labs: Laboratory Results - last 24 hr 05/23/25 05/24/25 05/24/25 19:39 07:29 08:34 Sodium 131 L Potassium 4.1 Chloride 97 L Carbon Dioxide 29 Anion Gap 5 BUN 11 Creatinine 0.55 L Estim Creat Clear Calc 125 Estimated GFR > 60 Glucose 124 H POC Capillary Glucose 126 H 120 H Hemoglobin A1c 6.2 H Calcium 8.9 Phosphorus 3.4 C-Reactive Protein > 9.0 H Albumin 2.9 L 05/24/25 05/24/25 11:18 16:28 Sodium Potassium Chloride Carbon Dioxide Anion Gap BUN Creatinine Estim Creat Clear Calc Estimated GFR Glucose POC Capillary Glucose 123 H 148 H Hemoglobin A1c Calcium Phosphorus C-Reactive Protein Albumin
[2025-05-24] MEDS: INSULIN GLARGINE (*BKC) 100 UNITS/ML 14 UNITS SUB-Q (21:06)
[2025-05-24] MEDS: ATORVASTATIN 20 MG TABLET PO (21:09)
[2025-05-24 22:00] VITALS: BP 131/82; PULSE 102; RESP 20; TEMP 35.9; O2SAT 100
[2025-05-25] MEDS: oxyCODONE/ACETAMINOPHEN (*CRX) 5-325 MG TABLET 1.5 TABLET PO (05:12)
[2025-05-25] MEDS: MEROPENEM 1 GM in SODIUM CHLORIDE 0.9% IV 100 ML 200 ML IVPB ×3 (05:13→21:22)
[2025-05-25] MEDS: SALINE LOCK FLUSH 10 ML IV PUSH ×3 (05:14→21:23)
[2025-05-25 06:00] VITALS: BP 113/74; PULSE 90; RESP 20; TEMP 36.6; O2SAT 96
[2025-05-25 06:17] LABS: Hematocrit 36.8 % (42.0-52.0); Hemoglobin 11.4 g/dL (14.0-18.0); Immature Granulocyte Percent A 1.1 % (0-0.5); Lymphocytes Absolute Auto 1.35 K/mm3 (0.9-3.2); Mean Corpuscular HGB Conc 31.0 g/dl (32-36); Mean Corpuscular Hemoglobin 25.6 pg (26-34); Mean Corpuscular Volume 82.5 fl (80-100); Nucleated Red Blood Cells Absolute Auto 0.000 K/mm3 (0.0-0.012); Nucleated Red Blood Cells Perc 0.0 % (0.0-0.2); Platelet Count Result 513 k/mm3 (150-375); Red Blood Count 4.46 M/mm3 (4.6-6.20); White Blood Count 9.6 K/mm3 (4.5-10.0)
[2025-05-25 06:51] LABS: Albumin Level 3.1 g/dL (3.5-5.1); Anion Gap 7 mmol/L (4-12); Blood Urea Nitrogen 13 mg/dL (9-20); Calcium 9.2 mg/dL (8.4-10.2); Carbon Dioxide 27 mmol/L (22-30); Chloride 99 mmol/L (98-107); Estimated CRCL calculation 130 ml/min; Estimated Glomerular Filt Rate > 60; Glucose 116 mg/dL (65-110); Magnesium 1.7 mg/dL (1.6-2.3); Potassium 4.0 mmol/L (3.4-5.0); Sodium 133 mmol/L (137-145)
[2025-05-25 07:10] LABS: CRP 12.2 mg/dL (<1.0)
[2025-05-25] MEDS: PANTOPRAZOLE 40 MG TABLET PO (08:59)
[2025-05-25] MEDS: FOLIC ACID 1 MG TABLET PO (08:59)
[2025-05-25] MEDS: ASPIRIN 81 MG CHEWABLE TABLET PO (08:59)
[2025-05-25] MEDS: ENOXAPARIN 40 MG/0.4 ML SYRINGE SUB-Q (08:59)
[2025-05-25] MEDS: MELOXICAM 7.5 MG TABLET 15 MG PO (08:59)
[2025-05-25] MEDS: GABAPENTIN 300 MG CAPSULE 600 MG PO ×3 (08:59→17:51)
[2025-05-25] MEDS: FLUTICASONE/UMECLIDIN/VILANTER 200-62.5-25 MCG ELLIPTA 1 PUFF INHALATION (09:23)
[2025-05-25 09:25] VITALS: O2SAT 96
--- NOTE | 2025-05-25 13:57 | PM.IMPN ---
Progress Note: A&P Assessment and Plan (1) Cellulitis of both lower extremities: Code(s): L03.115 - Cellulitis of right lower limb; L03.116 - Cellulitis of left lower limb Status: Acute Assessment and Plan: Patient with cellulitis lower extremities present on admission. Wound infection prominently right lower extremity. Right ankle x-ray showed extensive skin thickening dorsum of the foot and anterior margin of the ankle. Periosteal reaction of the distal aspect of the fibula and tibia. These findings are suspicious for underlying osteomyelitis with cellulitis. Left ankle/foot xray with periosteal reaction distal aspect of the tibia and fibula with moderate diffuse soft tissue swelling of the ankle and foot. Skin thickening is present anteriorly overlying the ankle and foot. Consider osteomyelitis in the appropriate clinical setting versus reactive changes secondary to cellulitis. Recommend MRI Started on vancomycin and cefepime Bilateral Foot MRI showing no osteomyelitis. Orthopedics and General surgery folowing. BCx growing Staph haemolytics and Staph epidermidis in one set. Wound Cx pending Recent culture with MDR Pseudomonas from wound which was treated with meropenem Pain management with Tylenol and Percocet. 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 Bacteremia with MRSE. He was switched to linezolid and completed a 7 day course. (2) Bacteremia: Code(s): R78.81 - Bacteremia Status: Acute Assessment and Plan: As above (3) Diabetic ulcer of both feet: Code(s): E11.621 - Type 2 diabetes mellitus with foot ulcer; L97.519 - Non-pressure chronic ulcer of other part of right foot with unspecified severity; L97.529 - Non-pressure chronic ulcer of other part of left foot with unspecified severity Status: Acute Assessment and Plan: As above (4) Left shoulder pain: Qualifiers: Chronicity: acute Qualified Code(s): M25.512 - Pain in left shoulder Code(s): M25.512 - Pain in left shoulder Status: Acute Assessment and Plan: left shoulder pain with restricted ROM. Xray shoulder with subluxation likely due to rotator cuff tear. MRI with findings of chronic anterior shoulder dislocation with chronic appearing Hill-Sachs fracture through at the humeral head and low to moderate grade chondromalacia and degenerative tearing of the glenoid labrum at the anterior inferior glenoid subscapularis tendinopathy without discrete tear. Bursitis noted. Ortho consulted and appreciate their input. Recommended conservative treatment, therapy. PT/OT (5) Type 2 diabetes mellitus without complication, without long-term current use of insulin: Code(s): E11.9 - Type 2 diabetes mellitus without complications Status: Acute Assessment and Plan: A1c 6.2%. The patient's blood glucose was reviewed on 05/25 Glucose remains well controlled. Continue AccuCheks covering with sliding scale. Hypoglycemia protocol available as needed. Continue to monitor on Lantus. Holding home oral meds. (6) COPD (chronic obstructive pulmonary disease): Code(s): J44.9 - Chronic obstructive pulmonary disease, unspecified Status: Acute Assessment and Plan: Stable. No wheezing. Remains on room air Continue Trelegy (7) Essential (primary) hypertension: Code(s): I10 - Essential (primary) hypertension Status: Acute Assessment and Plan: Patient's blood pressure was reviewed on 05/25 Blood pressure remains well controlled. Will continue to monitor (8) Chronic venous stasis dermatitis of both lower extremities: Code(s): I87.2 - Venous insufficiency (chronic) (peripheral) Status: Acute Assessment and Plan: Stable (9) GERD (gastroesophageal reflux disease): Qualifiers: Esophagitis presence: esophagitis presence not specified Qualified Code(s): K21.9 - Gastro-esophageal reflux disease without esophagitis Code(s): K21.9 - Gastro-esophageal reflux disease without esophagitis Status: Acute Assessment and Plan: Stable. Continue PPI therapy. Plan PAD - Recent arterial duplex with mild infrapopliteal peripheral vascular disease noted. OA - Knee arthritis with some contractures lower extremities DVT Prophylaxis - Lovenox Code status - full Disp - placement being arranged vs home with home health Subjective Date/time seen: 05/25/25 13:57 Interval history: 64yo male with a past medical history of asthma, PVD, hypertension, type 2 diabetes, venous stasis present ED with a chief complaint of worsening ulcer of bilateral lower extremities and general weakness. Feeling well. No chest pain or shortness of breath. Eating well. He has a dry cough. He has not been out of bed. No nausea or vomiting. Normal bowel movements. His left hand weakness is related to left shoulder injury a few months ago. Exam Narrative: AF 97.8 113/74 90 20 96% ra Gen - NARD Chest - CTA bilaterally, nml RR CV - RRR S1/S2. Telemetry showing PVCs Abd - Soft, NT/ND, Positive BS Ext -no pedal edema. Bilateral ankle dressings clean, dry and intact. Neuro - Alert and appropriate. 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 Psych - Nml mood and affect Skin - Warm and dry Objective Data Vital Signs Vital Signs: Vital Signs - 24 hr 05/24/25 14:00 05/24/25 22:00 05/25/25 06:00 Temperature 97.2 F L 96.6 F L 97.8 F Pulse Rate 92 102 H 90 Respiratory Rate 20 20 20 Blood Pressure 108/60 131/82 113/74 Pulse Oximetry 99 100 96 Oxygen Delivery 05/25/25 08:00 05/25/25 09:25 Temperature Pulse Rate Respiratory Rate Blood Pressure Pulse Oximetry 96 Oxygen Delivery Room Air Room Air Intake/Output Intake/Output: Intake & Output 05/22/25 05/23/25 05/24/25 05/25/25 23:59 23:59 23:59 23:59 Intake Total 1632.5 1100 1408 1026 Output Total 300 1550 2200 200 Balance 1332.5 -450 -792 826 Meds/Results Medications: Active Medications Generic Name Dose Route Start Last Admin Trade Name Freq PRN Reason Stop Dose Admin Acetaminophen 650 mg 05/17/25 03:55 05/21/25 20:29 Acetaminophen 325 Mg Tablet PO 650 mg Q4H PRN Administration Mild Pain (1-3) or Fever Albuterol 2.5 mg 05/18/25 13:00 Albuterol Sulfate Neb 2.5 Mg/3 Ml Inh INHALATION Q4HRT PRN Shortness Of Breath Albuterol 2 puff 05/19/25 13:40 Albuterol Sulfate (*Sp) Aerosol 1 Puff INHALATION Q4H PRN shortness of breath or wheezing Aspirin 81 mg 05/18/25 13:00 05/25/25 08:59 Aspirin 81 Mg Chewable Tablet PO 81 mg DAILY@0800 ELISSA Administration Atorvastatin Calcium 20 mg 05/18/25 21:00 05/24/25 21:09 Atorvastatin 20 Mg Tablet PO 20 mg HS ELISSA Administration Calcium Carbonate 200 mg 05/22/25 12:20 05/22/25 16:58 Calcium Carbonate (Tums) 500 Mg (200 Mg Elemental) PO 200 mg Q6H PRN Administration Indigestion Dextrose 12.5 gm 05/17/25 07:55 Dextrose 50% 25 Gm/50 Ml Syringe IV PUSH PRN PRN Hypoglycemia Protocol Diclofenac Sodium 1 applic 05/18/25 18:21 05/20/25 17:11 Diclofenac Sodium 1% 100 Gm Gel (*Bkc) TOPICAL 1 applic QID PRN Administration Muscle/Joint Pain Enoxaparin Sodium 40 mg 05/25/25 09:00 05/25/25 08:59 Enoxaparin 40 Mg/0.4 Ml Syringe SUB-Q 40 mg DAILY ELISSA Administration Fluticasone/Umeclidinium/Vilanterol 1 puff 05/18/25 13:05 05/25/25 09:23 Fluticasone/Umeclidin/Vilanter 200-62.5-25 Mcg Ellipta INHALATION 1 puff DAILYRT ELISSA Administration Folic Acid 1 mg 05/20/25 09:00 05/25/25 08:59 Folic Acid 1 Mg Tablet PO 1 mg DAILY ELISSA Administration Gabapentin 600 mg 05/18/25 13:00 05/25/25 13:54 Gabapentin 300 Mg Capsule PO 600 mg TID ELISSA Administration Glucagon 1 mg 05/17/25 07:55 Glucagon For Inj 1 Mg Vial IM PRN PRN Hypoglycemia Protocol Glucose 15 gm 05/17/25 07:55 Glucose Oral Gel 15 Gm Of Glucse In 37.5 Gm Tube PO PRN PRN Hypoglycemia Protocol Dextrose 1,000 mls @ 100 mls/hr 05/17/25 07:55 Dextrose 5% 1,000 Ml IVPB PRN PRN Hypoglycemia Protocol Meropenem 1 gm/ Sodium 100 mls @ 200 mls/hr 05/22/25 14:30 05/25/25 13:54 Chloride IVPB 06/01/25 06:29 200 mls/hr Q8HR ELISSA Administration Insulin Aspart 4 - 8 units 05/17/25 08:00 05/25/25 12:25 Insulin Aspart (*Bkc) 100 Units/Ml SUB-Q Not Given TIDWM ELISSA Protocol Insulin Aspart 2 - 4 units 05/17/25 21:00 05/24/25 21:10 Insulin Aspart (*Bkc) 100 Units/Ml SUB-Q Not Given HS ELISSA Protocol Insulin Glargine 14 units 05/17/25 21:00 05/24/25 21:06 Insulin Glargine (*Bkc) 100 Units/Ml 0.15 units/kg (14 units) 14 units SUB-Q Administration HS ELISSA Lisinopril 10 mg 05/18/25 13:05 05/25/25 09:00 Lisinopril 10 Mg Tablet PO 10 mg DAILY ELISSA Administration Lorazepam 0.5 mg 05/21/25 15:12 05/22/25 13:28 Lorazepam (*Crx) 0.5 Mg Tablet PO 0.5 mg ONCE PRN Administration MRI ANXIETY Meloxicam 15 mg 05/20/25 09:00 05/25/25 08:59 Meloxicam 7.5 Mg Tablet PO 15 mg DAILY ELISSA Administration Ondansetron HCl 4 mg 05/17/25 03:55 Ondansetron Inj 4 Mg/2 Ml Vial IV PUSH Q4H PRN Nausea Oxycodone/Acetaminophen 1.5 tablet 05/21/25 11:30 05/25/25 05:12 Oxycodone/Acetaminophen (*Crx) 5-325 Mg Tablet PO 1.5 tablet Q4H PRN Administration Pain Rated 7-10 Pantoprazole Sodium 40 mg 05/23/25 09:00 05/25/25 08:59 Pantoprazole 40 Mg Tablet PO 40 mg QAM ELISSA Administration Polyethylene Glycol 17 gm 05/22/25 09:00 05/25/25 08:59 Polyethylene Glycol 3350 17 Gm Powd.Pack PO 17 gm QAM ELISSA Administration Sodium Chloride 10 ml 05/22/25 22:00 05/25/25 13:55 Saline Lock Flush IV PUSH 10 ml Q8HR ELISSA Administration Sodium Chloride 10 ml 05/22/25 16:18 Saline Lock Flush IV PUSH PRN PRN Flush Sodium Chloride 20 ml 05/22/25 16:18 Saline Lock Flush IV PUSH PRN PRN after blood draws Radiology Results: ITS Impressions Shoulder X-Ray 05/17/25 07:38 Impression: 1: No acute fracture. Ankle X-Ray 05/17/25 07:43 Impression: 1: Periosteal reaction distal aspect of the tibia and fibula with moderate diffuse soft tissue swelling of the ankle and foot. Skin thickening is present anteriorly overlying the ankle and foot. Consider osteomyelitis in the appropriate clinical setting versus reactive changes secondary to cellulitis. Recommend correlation with MRI with contrast to exclude osteomyelitis. Foot X-Ray 05/17/25 07:43 Impression: 1: Periosteal reaction distal aspect of the tibia and fibula with moderate diffuse soft tissue swelling of the ankle and foot. Skin thickening is present anteriorly overlying the ankle and foot. Consider osteomyelitis in the appropriate clinical setting versus reactive changes secondary to cellulitis. Recommend correlation with MRI with contrast to exclude osteomyelitis. Knee X-Ray 05/17/25 07:45 Impression: 1: No acute fracture. Limited study. 2: Small joint effusion. Foot MRI 05/19/25 16:22 IMPRESSION: 1. Relatively symmetric appearance of chronic periosteal reaction along the distal metadiaphyseal regions of the tibia and fibula without associated marrow signal changes and with similarly symmetric skin thickening at the ankle and dorsum of the hindfoot as seen at the contralateral foot and ankle should be most consistent with changes of chronic venous stasis with likely venous stasis ulcer at the medial aspect of the distal right lower leg. Differential for the periosteal reaction would include less likely hypertrophic pulmonary osteoarthropathy. No abscess or lesion suspicious for osteomyelitis in the right hind foot or ankle. 2. Subchondral edema-like signal change and enhancement without cortical erosions, loss of T1 marrow fat signal without joint effusions at the right ankle, subtalar, talonavicular and calcaneocuboid joints similar to that previously seen at the left foot and ankle which could be due to osteoarthritis, inflammatory arthritis, transient osteoporosis or less likely complex regional pain syndrome. 3. Mild right Achilles tendinosis and mild peritendinitis. Duplex Scan Lower Extremity Artery 05/22/25 08:17 IMPRESSION: 1. Normal brisk systolic upstrokes throughout the arteries of the bilateral lower limbs with no evident hemodynamically significant stenosis by Doppler or grayscale imaging. Shoulder MRI 05/22/25 14:21 IMPRESSION: 1. Evaluation moderately limited by motion artifact present to some degree on all sequences. 2. Constellation of findings suggesting sequela of chronic anterior shoulder dislocation with chronic appearing shallow Hill-Sachs fracture trough at the humeral head and with low to moderate grade chondromalacia and degenerative tearing of the glenoid labrum at the anteroinferior glenoid. 3. Mild subscapularis tendinopathy without discrete tear. 4. Small left glenohumeral joint effusion and minimal subacromial/subdeltoid bursitis. Venous Doppler Study 05/24/25 17:07 IMPRESSION: Patent bilateral lower extremity veins. No evidence of deep venous thrombosis. Labs Labs: Laboratory Results - last 24 hr 05/24/25 05/24/25 05/25/25 16:28 21:04 05:27 WBC 9.6 RBC 4.46 L Hgb 11.4 L Hct 36.8 L MCV 82.5 MCH 25.6 L MCHC 31.0 L RDW 14.1 Plt Count 513 H MPV 8.5 Immature Gran % (Auto) 1.1 H Neut % (Auto) 66.3 Lymph % (Auto) 14.1 L [place] % (Auto) 13.2 H Eos % (Auto) 4.7 H Baso % (Auto) 0.6 Lymph # (Auto) 1.35 [place] # (Auto) 1.3 H Eos # (Auto) 0.5 H Baso # (Auto) 0.1 Abs Immat Gran (auto) 0.11 H Absolute Neuts (auto) 6.4 Absolute Nucleated RBC 0.000 Nucleated RBC % 0.0 Sodium 133 L Potassium 4.0 Chloride 99 Carbon Dioxide 27 Anion Gap 7 BUN 13 Creatinine 0.53 L Estim Creat Clear Calc 130 Estimated GFR > 60 Glucose 116 H POC Capillary Glucose 148 H 156 H Calcium 9.2 Phosphorus 3.2 Magnesium 1.7 C-Reactive Protein 12.2 H Albumin 3.1 L 05/25/25 05/25/25 08:04 11:21 WBC RBC Hgb Hct MCV MCH MCHC RDW Plt Count MPV Immature Gran % (Auto) Neut % (Auto) Lymph % (Auto) [place] % (Auto) Eos % (Auto) Baso % (Auto) Lymph # (Auto) [place] # (Auto) Eos # (Auto) Baso # (Auto) Abs Immat Gran (auto) Absolute Neuts (auto) Absolute Nucleated RBC Nucleated RBC % Sodium Potassium Chloride Carbon Dioxide Anion Gap BUN Creatinine Estim Creat Clear Calc Estimated GFR Glucose POC Capillary Glucose 117 H 150 H Calcium Phosphorus Magnesium C-Reactive Protein Albumin
[2025-05-25 14:00] VITALS: BP 117/64; PULSE 79; RESP 16; TEMP 36.3; O2SAT 98
[2025-05-25] MEDS: INSULIN GLARGINE (*BKC) 100 UNITS/ML 14 UNITS SUB-Q (20:28)
[2025-05-25] MEDS: ATORVASTATIN 20 MG TABLET PO (20:29)
[2025-05-25 21:05] VITALS: BP 109/63; PULSE 87; RESP 20; TEMP 36.8; O2SAT 98
[2025-05-26] MEDS: MEROPENEM 1 GM in SODIUM CHLORIDE 0.9% IV 100 ML 200 ML IVPB ×3 (05:11→21:55)
[2025-05-26] MEDS: SALINE LOCK FLUSH 10 ML IV PUSH ×3 (05:12→21:56)
[2025-05-26 06:17] LABS: Hematocrit 37.2 % (42.0-52.0); Hemoglobin 11.7 g/dL (14.0-18.0); Immature Granulocyte Percent A 0.9 % (0-0.5); Lymphocytes Absolute Auto 1.40 K/mm3 (0.9-3.2); Mean Corpuscular HGB Conc 31.5 g/dl (32-36); Mean Corpuscular Hemoglobin 25.8 pg (26-34); Mean Corpuscular Volume 81.9 fl (80-100); Nucleated Red Blood Cells Absolute Auto 0.000 K/mm3 (0.0-0.012); Nucleated Red Blood Cells Perc 0.0 % (0.0-0.2); Platelet Count Result 483 k/mm3 (150-375); Red Blood Count 4.54 M/mm3 (4.6-6.20); White Blood Count 10.4 K/mm3 (4.5-10.0)
[2025-05-26 07:08] LABS: Alanine Aminotransferase 33 U/L (6-50); Albumin Level 3.2 g/dL (3.5-5.1); Alkaline Phosphatase 91 U/L (38-126); Anion Gap 7 mmol/L (4-12); Aspartate Amino Transferase 36 U/L (17-59); Bilirubin,Total 0.3 mg/dL (0.2-1.3); Blood Urea Nitrogen 15 mg/dL (9-20); Calcium 9.4 mg/dL (8.4-10.2); Carbon Dioxide 26 mmol/L (22-30); Chloride 99 mmol/L (98-107); Estimated CRCL calculation 118 ml/min; Estimated Glomerular Filt Rate > 60; Glucose 122 mg/dL (65-110); Potassium 4.2 mmol/L (3.4-5.0); Sodium 132 mmol/L (137-145); Total Protein 6.6 g/dL (6.3-8.2)
[2025-05-26] MEDS: GABAPENTIN 300 MG CAPSULE 600 MG PO ×3 (08:32→17:03)
[2025-05-26] MEDS: ASPIRIN 81 MG CHEWABLE TABLET PO (08:32)
[2025-05-26] MEDS: PANTOPRAZOLE 40 MG TABLET PO (08:32)
[2025-05-26] MEDS: MELOXICAM 7.5 MG TABLET 15 MG PO (08:32)
[2025-05-26] MEDS: FOLIC ACID 1 MG TABLET PO (08:32)
[2025-05-26] MEDS: ENOXAPARIN 40 MG/0.4 ML SYRINGE SUB-Q (08:33)
[2025-05-26 09:10] VITALS: O2SAT 96
[2025-05-26] MEDS: FLUTICASONE/UMECLIDIN/VILANTER 200-62.5-25 MCG ELLIPTA 1 PUFF INHALATION (09:10)
--- NOTE | 2025-05-26 13:56 | P.PNIM_ITS ---
Progress Note: A&P Assessment and Plan (1) Cellulitis of both lower extremities: Code(s): L03.115 - Cellulitis of right lower limb; L03.116 - Cellulitis of left lower limb Status: Acute Assessment and Plan: Patient with cellulitis lower extremities present on admission. Wound infection prominently right lower extremity. Right ankle x-ray showed extensive skin thickening dorsum of the foot and anterior margin of the ankle. Periosteal reaction of the distal aspect of the fibula and tibia. These findings are suspicious for underlying osteomyelitis with cellulitis. Left ankle/foot xray with periosteal reaction distal aspect of the tibia and fibula with moderate diffuse soft tissue swelling of the ankle and foot. Skin thickening is present anteriorly overlying the ankle and foot. Consider osteomyelitis in the appropriate clinical setting versus reactive changes secondary to cellulitis. Recommend MRI Started on vancomycin and cefepime Bilateral Foot MRI showing no osteomyelitis. Orthopedics and General surgery folowing. BCx growing Staph haemolytics and Staph epidermidis in one set. 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 He was switched to linezolid and completed a 7 day course. Switched antibiotic to meropenem and plan to treat for 10 total days but clinically could be changed to Levaquin to complete a course of abx since very little cellulitis noted now. (2) Bacteremia: Code(s): R78.81 - Bacteremia Status: Acute Assessment and Plan: As above (3) Diabetic ulcer of both feet: Code(s): E11.621 - Type 2 diabetes mellitus with foot ulcer; L97.519 - Non-pressure chronic ulcer of other part of right foot with unspecified severity; L97.529 - Non-pressure chronic ulcer of other part of left foot with unspecified severity Status: Acute Assessment and Plan: Recent arterial duplex showing normal brisk systolic upstrokes throughout the arteries of the bilateral lower limbs with no evident hemodynamically significant stenosis by Doppler or grayscale imaging. As above (4) Left shoulder pain: Qualifiers: Chronicity: acute Qualified Code(s): M25.512 - Pain in left shoulder Code(s): M25.512 - Pain in left shoulder Status: Acute Assessment and Plan: left shoulder pain with restricted ROM. Xray shoulder with subluxation likely due to rotator cuff tear. MRI with findings of chronic anterior shoulder dislocation with chronic appearing Hill-Sachs fracture through at the humeral head and low to moderate grade chondromalacia and degenerative tearing of the glenoid labrum at the anterior inferior glenoid subscapularis tendinopathy without discrete tear. Bursitis noted. Ortho consulted and appreciate their input. Recommended conservative treatment, therapy. PT/OT (5) Debility: Code(s): R53.81 - Other malaise Status: Acute Assessment and Plan: Patient with LUE and LLE contractures and weakness present before his hospitalization in March. He is not able to ambulate. Images performed at the outside hospital -- CT brain 03/27/25showing no acute intracranial abnormalities -- Cervical spine MRI 04/02/25 showing a shallow disc osteophyte spondylosis C3-4 compressing the thecal sac but no severe canal stenosis. -- Thoracic spine MRI 04/02/25 showing no acute abnormalities. -- Lumbar spine MRI 04/02/25 showing the L5 nerve roost may be impinging in the neural foramen, mild L4-5 disc bulging with mild compression of thecal sac and mild left foraminal narrowing that may be impinging on left L4 nerve root The outside hospital was using sandbags to the left knee to try to straighten joint. Ortho consulted. PT/OT ordered. Placement being arranged. (6) Type 2 diabetes mellitus without complication, without long-term current use of insulin: Code(s): E11.9 - Type 2 diabetes mellitus without complications Status: Acute Assessment and Plan: A1c 6.2%. The patient's blood glucose was reviewed on 05/26 Glucose remains well controlled. Continue AccuCheks covering with sliding scale. Hypoglycemia protocol available as needed. Continue to monitor on Lantus. Holding home oral meds. (7) COPD (chronic obstructive pulmonary disease): Code(s): J44.9 - Chronic obstructive pulmonary disease, unspecified Status: Acute Assessment and Plan: Stable. No wheezing. Remains on room air Continue Trelegy (8) Essential (primary) hypertension: Code(s): I10 - Essential (primary) hypertension Status: Acute Assessment and Plan: Patient's blood pressure was reviewed on 05/26 Blood pressure remains well controlled. Will continue to monitor (9) Chronic venous stasis dermatitis of both lower extremities: Code(s): I87.2 - Venous insufficiency (chronic) (peripheral) Status: Acute Assessment and Plan: Stable (10) GERD (gastroesophageal reflux disease): Qualifiers: Esophagitis presence: esophagitis presence not specified Qualified Code(s): K21.9 - Gastro-esophageal reflux disease without esophagitis Code(s): K21.9 - Gastro-esophageal reflux disease without esophagitis Status: Acute Assessment and Plan: Stable. Continue PPI therapy. Plan DVT Prophylaxis - Lovenox Code status - full Disp - placement being arranged vs home with home health Subjective Date/time seen: 05/26/25 13:56 Interval history: 64yo male with a past medical history of asthma, PVD, hypertension, type 2 diabetes, venous stasis present ED with a chief complaint of worsening ulcer of bilateral lower extremities and general weakness. Slept off and on. No CP or SOB. Up to the chair. He is full lift to move to chair. He can not stand due to left knee flexion contracture. Feels cold. Poor appetite but no n/v. Exam Narrative: AF 98.3 109/63 87 20 96% ra Gen - NARD Chest - CTA bilaterally, nml RR CV - RRR S1/S2 Abd - Soft, NT/ND, Positive BS Ext -no pedal edema. flexion contracture left knee Neuro - Alert and appropriate. 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 2 left lower leg/ankle small shallow ulcers with good granulation tissue. 1 left medial ankle large shallow ulcers with good granulation tissue. 1 right medial ankle large shallow ulcers with good granulation tissue. Right lateral leg difficult to assess. Scant surrounding erythema. No odor Objective Data Vital Signs Vital Signs: Vital Signs - 24 hr 05/25/25 14:00 05/25/25 21:05 05/26/25 08:00 Temperature 97.3 F L 98.3 F Pulse Rate 79 87 Respiratory Rate 16 20 Blood Pressure 117/64 109/63 Pulse Oximetry 98 98 Oxygen Delivery Room Air 05/26/25 09:10 Temperature Pulse Rate Respiratory Rate Blood Pressure Pulse Oximetry 96 Oxygen Delivery Room Air Intake/Output Intake/Output: Intake & Output 05/23/25 05/24/25 05/25/25 05/26/25 23:59 23:59 23:59 23:59 Intake Total 1100 1408 1706 100 Output Total 1550 2200 200 200 Balance -450 -792 1506 -100 Meds/Results Medications: Active Medications Generic Name Dose Route Start Last Admin Trade Name Freq PRN Reason Stop Dose Admin Acetaminophen 650 mg 05/17/25 03:55 05/21/25 20:29 Acetaminophen 325 Mg Tablet PO 650 mg Q4H PRN Administration Mild Pain (1-5) Or Fever Hydrocodone Bitart/Acetaminophen 1 tab 05/25/25 17:09 Hydrocodone/Acetaminophen (*Crx) 5-325 Mg Tablet PO Q6H PRN Pain Rated 6 or Greater Albuterol 2.5 mg 05/18/25 13:00 Albuterol Sulfate Neb 2.5 Mg/3 Ml Inh INHALATION Q4HRT PRN Shortness Of Breath Albuterol 2 puff 05/19/25 13:40 Albuterol Sulfate (*Sp) Aerosol 1 Puff INHALATION Q4H PRN shortness of breath or wheezing Aspirin 81 mg 05/18/25 13:00 05/26/25 08:32 Aspirin 81 Mg Chewable Tablet PO 81 mg DAILY@0800 ELISSA Administration Atorvastatin Calcium 20 mg 05/18/25 21:00 05/25/25 20:29 Atorvastatin 20 Mg Tablet PO 20 mg HS ELISSA Administration Calcium Carbonate 200 mg 05/22/25 12:20 05/22/25 16:58 Calcium Carbonate (Tums) 500 Mg (200 Mg Elemental) PO 200 mg Q6H PRN Administration Indigestion Dextrose 12.5 gm 05/17/25 07:55 Dextrose 50% 25 Gm/50 Ml Syringe IV PUSH PRN PRN Hypoglycemia Protocol Diclofenac Sodium 1 applic 05/18/25 18:21 05/20/25 17:11 Diclofenac Sodium 1% 100 Gm Gel (*Bkc) TOPICAL 1 applic QID PRN Administration Muscle/Joint Pain Enoxaparin Sodium 40 mg 05/25/25 09:00 05/26/25 08:33 Enoxaparin 40 Mg/0.4 Ml Syringe SUB-Q 40 mg DAILY ELISSA Administration Fluticasone/Umeclidinium/Vilanterol 1 puff 05/18/25 13:05 05/26/25 09:10 Fluticasone/Umeclidin/Vilanter 200-62.5-25 Mcg Ellipta INHALATION 1 puff DAILYRT ELISSA Administration Folic Acid 1 mg 05/20/25 09:00 05/26/25 08:32 Folic Acid 1 Mg Tablet PO 1 mg DAILY ELISSA Administration Gabapentin 600 mg 05/18/25 13:00 05/26/25 13:53 Gabapentin 300 Mg Capsule PO 600 mg TID ELISSA Administration Glucagon 1 mg 05/17/25 07:55 Glucagon For Inj 1 Mg Vial IM PRN PRN Hypoglycemia Protocol Glucose 15 gm 05/17/25 07:55 Glucose Oral Gel 15 Gm Of Glucse In 37.5 Gm Tube PO PRN PRN Hypoglycemia Protocol Dextrose 1,000 mls @ 100 mls/hr 05/17/25 07:55 Dextrose 5% 1,000 Ml IVPB PRN PRN Hypoglycemia Protocol Meropenem 1 gm/ Sodium 100 mls @ 200 mls/hr 05/22/25 14:30 05/26/25 13:53 Chloride IVPB 06/01/25 06:29 200 mls/hr Q8HR ELISSA Administration Insulin Aspart 4 - 8 units 05/17/25 08:00 05/26/25 12:52 Insulin Aspart (*Bkc) 100 Units/Ml SUB-Q Not Given TIDWM [facility] Protocol Insulin Aspart 2 - 4 units 05/17/25 21:00 05/25/25 19:48 Insulin Aspart (*Bkc) 100 Units/Ml SUB-Q Not Given HS [facility] Protocol Insulin Glargine 14 units 05/17/25 21:00 05/25/25 20:28 Insulin Glargine (*Bkc) 100 Units/Ml 0.15 units/kg (14 units) 14 units SUB-Q Administration HS [facility] Lisinopril 10 mg 05/18/25 13:05 05/26/25 08:32 Lisinopril 10 Mg Tablet PO 10 mg DAILY ELISSA Administration Lorazepam 0.5 mg 05/21/25 15:12 05/22/25 13:28 Lorazepam (*Crx) 0.5 Mg Tablet PO 0.5 mg ONCE PRN Administration MRI ANXIETY Meloxicam 15 mg 05/20/25 09:00 05/26/25 08:32 Meloxicam 7.5 Mg Tablet PO 15 mg DAILY ELISSA Administration Ondansetron HCl 4 mg 05/17/25 03:55 Ondansetron Inj 4 Mg/2 Ml Vial IV PUSH Q4H PRN Nausea Pantoprazole Sodium 40 mg 05/23/25 09:00 05/26/25 08:32 Pantoprazole 40 Mg Tablet PO 40 mg QAM ELISSA Administration Polyethylene Glycol 17 gm 05/22/25 09:00 05/26/25 08:33 Polyethylene Glycol 3350 17 Gm Powd.Pack PO 17 gm QAM ELISSA Administration Sodium Chloride 10 ml 05/22/25 22:00 05/26/25 13:54 Saline Lock Flush IV PUSH 10 ml Q8HR ELISSA Administration Sodium Chloride 10 ml 05/22/25 16:18 Saline Lock Flush IV PUSH PRN PRN Flush Sodium Chloride 20 ml 05/22/25 16:18 Saline Lock Flush IV PUSH PRN PRN after blood draws Radiology Results: ITS Impressions Shoulder X-Ray 05/17/25 07:38 Impression: 1: No acute fracture. Ankle X-Ray 05/17/25 07:43 Impression: 1: Periosteal reaction distal aspect of the tibia and fibula with moderate diffuse soft tissue swelling of the ankle and foot. Skin thickening is present anteriorly overlying the ankle and foot. Consider osteomyelitis in the appropriate clinical setting versus reactive changes secondary to cellulitis. Recommend correlation with MRI with contrast to exclude osteomyelitis. Foot X-Ray 05/17/25 07:43 Impression: 1: Periosteal reaction distal aspect of the tibia and fibula with moderate diffuse soft tissue swelling of the ankle and foot. Skin thickening is present anteriorly overlying the ankle and foot. Consider osteomyelitis in the appropriate clinical setting versus reactive changes secondary to cellulitis. Recommend correlation with MRI with contrast to exclude osteomyelitis. Knee X-Ray 05/17/25 07:45 Impression: 1: No acute fracture. Limited study. 2: Small joint effusion. Foot MRI 05/19/25 16:22 IMPRESSION: 1. Relatively symmetric appearance of chronic periosteal reaction along the distal metadiaphyseal regions of the tibia and fibula without associated marrow signal changes and with similarly symmetric skin thickening at the ankle and dorsum of the hindfoot as seen at the contralateral foot and ankle should be most consistent with changes of chronic venous stasis with likely venous stasis ulcer at the medial aspect of the distal right lower leg. Differential for the periosteal reaction would include less likely hypertrophic pulmonary osteoarthropathy. No abscess or lesion suspicious for osteomyelitis in the right hind foot or ankle. 2. Subchondral edema-like signal change and enhancement without cortical erosions, loss of T1 marrow fat signal without joint effusions at the right ankle, subtalar, talonavicular and calcaneocuboid joints similar to that previously seen at the left foot and ankle which could be due to osteoarthritis, inflammatory arthritis, transient osteoporosis or less likely complex regional pain syndrome. 3. Mild right Achilles tendinosis and mild peritendinitis. Duplex Scan Lower Extremity Artery 05/22/25 08:17 IMPRESSION: 1. Normal brisk systolic upstrokes throughout the arteries of the bilateral lower limbs with no evident hemodynamically significant stenosis by Doppler or grayscale imaging. Shoulder MRI 05/22/25 14:21 IMPRESSION: 1. Evaluation moderately limited by motion artifact present to some degree on all sequences. 2. Constellation of findings suggesting sequela of chronic anterior shoulder dislocation with chronic appearing shallow Hill-Sachs fracture trough at the humeral head and with low to moderate grade chondromalacia and degenerative tearing of the glenoid labrum at the anteroinferior glenoid. 3. Mild subscapularis tendinopathy without discrete tear. 4. Small left glenohumeral joint effusion and minimal subacromial/subdeltoid bursitis. Venous Doppler Study 05/24/25 17:07 IMPRESSION: Patent bilateral lower extremity veins. No evidence of deep venous thrombosis. Labs Labs: Laboratory Results - last 24 hr 05/25/25 05/25/25 05/26/25 16:38 19:27 05:59 WBC 10.4 H RBC 4.54 L Hgb 11.7 L Hct 37.2 L MCV 81.9 MCH 25.8 L MCHC 31.5 L RDW 14.2 Plt Count 483 H MPV 8.1 Immature Gran % (Auto) 0.9 H Neut % (Auto) 66.8 Lymph % (Auto) 13.4 L Maury % (Auto) 13.5 H Eos % (Auto) 4.7 H Baso % (Auto) 0.7 Lymph # (Auto) 1.40 Maury # (Auto) 1.4 H Eos # (Auto) 0.5 H Baso # (Auto) 0.1 Abs Immat Gran (auto) 0.09 H Absolute Neuts (auto) 7.0 H Absolute Nucleated RBC 0.000 Nucleated RBC % 0.0 Sodium 132 L Potassium 4.2 Chloride 99 Carbon Dioxide 26 Anion Gap 7 BUN 15 Creatinine 0.59 L Estim Creat Clear Calc 118 Estimated GFR > 60 Glucose 122 H POC Capillary Glucose 114 H 125 H Calcium 9.4 Total Bilirubin 0.3 AST 36 ALT 33 Alkaline Phosphatase 91 Total Protein 6.6 Albumin 3.2 L 05/26/25 05/26/25 07:34 11:27 WBC RBC Hgb Hct MCV MCH MCHC RDW Plt Count MPV Immature Gran % (Auto) Neut % (Auto) Lymph % (Auto) Maury % (Auto) Eos % (Auto) Baso % (Auto) Lymph # (Auto) Maury # (Auto) Eos # (Auto) Baso # (Auto) Abs Immat Gran (auto) Absolute Neuts (auto) Absolute Nucleated RBC Nucleated RBC % Sodium Potassium Chloride Carbon Dioxide Anion Gap BUN Creatinine Estim Creat Clear Calc Estimated GFR Glucose POC Capillary Glucose 132 H 122 H Calcium Total Bilirubin AST ALT Alkaline Phosphatase Total Protein Albumin
[2025-05-26 14:00] VITALS: BP 108/67; PULSE 93; RESP 18; TEMP 36.6; O2SAT 99
[2025-05-26] MEDS: EUCERIN CREAM 120 GM JAR 1 APPLIC TOPICAL (17:04)
[2025-05-26] MEDS: ATORVASTATIN 20 MG TABLET PO (20:36)
[2025-05-26] MEDS: INSULIN GLARGINE (*BKC) 100 UNITS/ML 14 UNITS SUB-Q (20:36)
[2025-05-26 22:00] VITALS: BP 125/82; PULSE 92; RESP 20; TEMP 36.8; O2SAT 99
[2025-05-26] MEDS: HYDROcodone/acetaminophen (*CRX) 5-325 MG TABLET 1 TAB PO (23:24)
--- NOTE | 2025-05-27 05:56 | PC.NURSE ---
Pt refused his morning vitals.
[2025-05-27 06:00] VITALS: BP 105/73; PULSE 86; RESP 18; TEMP 36.6; O2SAT 96
[2025-05-27] MEDS: MEROPENEM 1 GM in SODIUM CHLORIDE 0.9% IV 100 ML 200 ML IVPB ×2 (06:14→13:42)
[2025-05-27] MEDS: SALINE LOCK FLUSH 10 ML IV PUSH ×3 (06:15→21:47)
[2025-05-27] MEDS: FLUTICASONE/UMECLIDIN/VILANTER 200-62.5-25 MCG ELLIPTA 1 PUFF INHALATION (07:35)
[2025-05-27] MEDS: ASPIRIN 81 MG CHEWABLE TABLET PO (08:33)
[2025-05-27] MEDS: MELOXICAM 7.5 MG TABLET 15 MG PO (08:33)
[2025-05-27] MEDS: ENOXAPARIN 40 MG/0.4 ML SYRINGE SUB-Q (08:33)
[2025-05-27] MEDS: GABAPENTIN 300 MG CAPSULE 600 MG PO ×3 (08:34→17:01)
[2025-05-27] MEDS: PANTOPRAZOLE 40 MG TABLET PO (08:34)
[2025-05-27] MEDS: EUCERIN CREAM 120 GM JAR 1 APPLIC TOPICAL (08:34)
[2025-05-27] MEDS: FOLIC ACID 1 MG TABLET PO (08:34)
--- NOTE | 2025-05-27 12:09 | PM.IMPN ---
Progress Note: A&P Assessment and Plan (1) Cellulitis of both lower extremities: Code(s): L03.115 - Cellulitis of right lower limb; L03.116 - Cellulitis of left lower limb Status: Acute Assessment and Plan: Patient with cellulitis lower extremities present on admission. Wound infection prominently right lower extremity. Right ankle x-ray showed extensive skin thickening dorsum of the foot and anterior margin of the ankle. Periosteal reaction of the distal aspect of the fibula and tibia. These findings are suspicious for underlying osteomyelitis with cellulitis. Left ankle/foot xray with periosteal reaction distal aspect of the tibia and fibula with moderate diffuse soft tissue swelling of the ankle and foot. Skin thickening is present anteriorly overlying the ankle and foot. Consider osteomyelitis in the appropriate clinical setting versus reactive changes secondary to cellulitis. Recommend MRI Started on vancomycin and cefepime Bilateral Foot MRI showing no osteomyelitis. Orthopedics and General surgery folowing. BCx growing Staph haemolytics and Staph epidermidis in one set. 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 He was switched to linezolid and completed a 7 day course. Switched antibiotic to meropenem and plan to treat for 10 total days but clinically could be changed to Levaquin to complete a course of abx since very little cellulitis noted now. (2) Bacteremia: Code(s): R78.81 - Bacteremia Status: Acute Assessment and Plan: As above (3) Diabetic ulcer of both feet: Code(s): E11.621 - Type 2 diabetes mellitus with foot ulcer; L97.519 - Non-pressure chronic ulcer of other part of right foot with unspecified severity; L97.529 - Non-pressure chronic ulcer of other part of left foot with unspecified severity Status: Acute Assessment and Plan: Recent arterial duplex showing normal brisk systolic upstrokes throughout the arteries of the bilateral lower limbs with no evident hemodynamically significant stenosis by Doppler or grayscale imaging. As above (4) Left shoulder pain: Qualifiers: Chronicity: acute Qualified Code(s): M25.512 - Pain in left shoulder Code(s): M25.512 - Pain in left shoulder Status: Acute Assessment and Plan: left shoulder pain with restricted ROM. Xray shoulder with subluxation likely due to rotator cuff tear. MRI with findings of chronic anterior shoulder dislocation with chronic appearing Hill-Sachs fracture through at the humeral head and low to moderate grade chondromalacia and degenerative tearing of the glenoid labrum at the anterior inferior glenoid subscapularis tendinopathy without discrete tear. Bursitis noted. Ortho consulted and appreciate their input. Recommended conservative treatment, therapy. PT/OT (5) Debility: Code(s): R53.81 - Other malaise Status: Acute Assessment and Plan: Patient with LUE and LLE contractures and weakness present before his hospitalization in March. He is not able to ambulate. Images performed at the outside hospital -- CT brain 03/27/25 showing no acute intracranial abnormalities -- Cervical spine MRI 04/02/25 showing a shallow disc osteophyte spondylosis C3-4 compressing the thecal sac but no severe canal stenosis. -- Thoracic spine MRI 04/02/25 showing no acute abnormalities. -- Lumbar spine MRI 04/02/25 showing the L5 nerve roost may be impinging in the neural foramen, mild L4-5 disc bulging with mild compression of thecal sac and mild left foraminal narrowing that may be impinging on left L4 nerve root The outside hospital was using sandbags to the left knee to try to straighten joint. Ortho consulted. PT/OT ordered. Placement being arranged. (6) Type 2 diabetes mellitus without complication, without long-term current use of insulin: Code(s): E11.9 - Type 2 diabetes mellitus without complications Status: Acute Assessment and Plan: A1c 6.2%. The patient's blood glucose was reviewed on 05/27 Glucose remains well controlled. Continue AccuCheks covering with sliding scale. Hypoglycemia protocol available as needed. Continue to monitor on Lantus. Holding home oral meds. (7) COPD (chronic obstructive pulmonary disease): Code(s): J44.9 - Chronic obstructive pulmonary disease, unspecified Status: Acute Assessment and Plan: Stable. No wheezing. Remains on room air Continue Trelegy (8) Essential (primary) hypertension: Code(s): I10 - Essential (primary) hypertension Status: Acute Assessment and Plan: Patient's blood pressure was reviewed on 05/27 Blood pressure remains well controlled. Will continue to monitor (9) Chronic venous stasis dermatitis of both lower extremities: Code(s): I87.2 - Venous insufficiency (chronic) (peripheral) Status: Acute Assessment and Plan: Stable (10) GERD (gastroesophageal reflux disease): Qualifiers: Esophagitis presence: esophagitis presence not specified Qualified Code(s): K21.9 - Gastro-esophageal reflux disease without esophagitis Code(s): K21.9 - Gastro-esophageal reflux disease without esophagitis Status: Acute Assessment and Plan: Stable. Continue PPI therapy. Plan DVT Prophylaxis - Lovenox Code status - full Disp - placement being arranged vs home with home health Subjective Date/time seen: 05/27/25 12:09 Interval history: 64yo male with a past medical history of asthma, PVD, hypertension, type 2 diabetes, venous stasis present ED with a chief complaint of worsening ulcer of bilateral lower extremities and general weakness. Patient states he was hospitalized in [place] in June for left leg weakness that improved with therapy. He was able to walk after that hospitalization. He was rehospitalized in March for similar complaint and has not been able to ambulate since then. No chest pain or shortness of breath. Left leg is stiff but he is working on trying to straighten the leg. He has been compliant with therapy. Exam Narrative: AF 97.8 105/73 86 18 96% ra Gen - NARD Chest - CTA bilaterally, nml RR CV - RRR S1/S2 Abd - Soft, NT/ND, Positive BS Ext -no pedal edema. flexion contracture left knee to about 90? Neuro - Alert and appropriate. 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 Bilateral ankle/foot dressings are clean, dry and intact. Decreased amount of scale noted. Objective Data Vital Signs Vital Signs: Vital Signs - 24 hr 05/26/25 14:00 05/26/25 20:45 05/26/25 22:00 Temperature 97.8 F 98.2 F Pulse Rate 93 92 Respiratory Rate 18 20 Blood Pressure 108/67 125/82 Pulse Oximetry 99 99 Oxygen Delivery Room Air 05/27/25 06:00 05/27/25 08:00 Temperature 97.8 F Pulse Rate 86 Respiratory Rate 18 Blood Pressure 105/73 Pulse Oximetry 96 Oxygen Delivery Room Air Intake/Output Intake/Output: Intake & Output 05/24/25 05/25/25 05/26/25 05/27/25 23:59 23:59 23:59 23:59 Intake Total 1408 1706 660 620 Output Total 2200 200 1600 Balance -792 1506 -940 620 Meds/Results Medications: Active Medications Generic Name Dose Route Start Last Admin Trade Name Freq PRN Reason Stop Dose Admin Acetaminophen 650 mg 05/17/25 03:55 05/21/25 20:29 Acetaminophen 325 Mg Tablet PO 650 mg Q4H PRN Administration Mild Pain (1-5) Or Fever Hydrocodone Bitart/Acetaminophen 1 tab 05/25/25 17:09 05/26/25 23:24 Hydrocodone/Acetaminophen (*Crx) 5-325 Mg Tablet PO 1 tab Q6H PRN Administration Pain Rated 6 or Greater Albuterol 2.5 mg 05/18/25 13:00 Albuterol Sulfate Neb 2.5 Mg/3 Ml Inh INHALATION Q4HRT PRN Shortness Of Breath Albuterol 2 puff 05/19/25 13:40 Albuterol Sulfate (*Sp) Aerosol 1 Puff INHALATION Q4H PRN shortness of breath or wheezing Aspirin 81 mg 05/18/25 13:00 05/27/25 08:33 Aspirin 81 Mg Chewable Tablet PO 81 mg DAILY@0800 ELISSA Administration Atorvastatin Calcium 20 mg 05/18/25 21:00 05/26/25 20:36 Atorvastatin 20 Mg Tablet PO 20 mg HS ELISSA Administration Calcium Carbonate 200 mg 05/22/25 12:20 05/22/25 16:58 Calcium Carbonate (Tums) 500 Mg (200 Mg Elemental) PO 200 mg Q6H PRN Administration Indigestion Dextrose 12.5 gm 05/17/25 07:55 Dextrose 50% 25 Gm/50 Ml Syringe IV PUSH PRN PRN Hypoglycemia Protocol Diclofenac Sodium 1 applic 05/18/25 18:21 05/20/25 17:11 Diclofenac Sodium 1% 100 Gm Gel (*Bkc) TOPICAL 1 applic QID PRN Administration Muscle/Joint Pain Enoxaparin Sodium 40 mg 05/25/25 09:00 05/27/25 08:33 Enoxaparin 40 Mg/0.4 Ml Syringe SUB-Q 40 mg DAILY ELISSA Administration Fluticasone/Umeclidinium/Vilanterol 1 puff 05/18/25 13:05 05/27/25 07:35 Fluticasone/Umeclidin/Vilanter 200-62.5-25 Mcg Ellipta INHALATION 1 puff DAILYRT ELISSA Administration Folic Acid 1 mg 05/20/25 09:00 05/27/25 08:34 Folic Acid 1 Mg Tablet PO 1 mg DAILY ELISSA Administration Gabapentin 600 mg 05/18/25 13:00 05/27/25 08:34 Gabapentin 300 Mg Capsule PO 600 mg TID ELISSA Administration Glucagon 1 mg 05/17/25 07:55 Glucagon For Inj 1 Mg Vial IM PRN PRN Hypoglycemia Protocol Glucose 15 gm 05/17/25 07:55 Glucose Oral Gel 15 Gm Of Glucse In 37.5 Gm Tube PO PRN PRN Hypoglycemia Protocol Dextrose 1,000 mls @ 100 mls/hr 05/17/25 07:55 Dextrose 5% 1,000 Ml IVPB PRN PRN Hypoglycemia Protocol Meropenem 1 gm/ Sodium 100 mls @ 200 mls/hr 05/22/25 14:30 05/27/25 06:14 Chloride IVPB 06/01/25 06:29 200 mls/hr Q8HR ELISSA Administration Insulin Aspart 4 - 8 units 05/17/25 08:00 05/27/25 08:32 Insulin Aspart (*Bkc) 100 Units/Ml SUB-Q Not Given TIDWM [facility] Protocol Insulin Aspart 2 - 4 units 05/17/25 21:00 05/26/25 20:38 Insulin Aspart (*Bkc) 100 Units/Ml SUB-Q Not Given HS [facility] Protocol Insulin Glargine 14 units 05/17/25 21:00 05/26/25 20:36 Insulin Glargine (*Bkc) 100 Units/Ml 0.15 units/kg (14 units) 14 units SUB-Q Administration HS [facility] Lisinopril 10 mg 05/18/25 13:05 05/27/25 08:33 Lisinopril 10 Mg Tablet PO 10 mg DAILY ELISSA Administration Lorazepam 0.5 mg 05/21/25 15:12 05/22/25 13:28 Lorazepam (*Crx) 0.5 Mg Tablet PO 0.5 mg ONCE PRN Administration MRI ANXIETY Meloxicam 15 mg 05/20/25 09:00 05/27/25 08:33 Meloxicam 7.5 Mg Tablet PO 15 mg DAILY ELISSA Administration Multi-Ingred Cream/Lotion/Oil/Oint 1 applic 05/26/25 14:00 05/27/25 08:34 Eucerin Cream 120 Gm Jar TOPICAL 1 applic DAILY ELISSA Administration Ondansetron HCl 4 mg 05/17/25 03:55 Ondansetron Inj 4 Mg/2 Ml Vial IV PUSH Q4H PRN Nausea Pantoprazole Sodium 40 mg 05/23/25 09:00 05/27/25 08:34 Pantoprazole 40 Mg Tablet PO 40 mg QAM ELISSA Administration Polyethylene Glycol 17 gm 05/22/25 09:00 05/27/25 08:35 Polyethylene Glycol 3350 17 Gm Powd.Pack PO Not Given QAM ELISSA Sodium Chloride 10 ml 05/22/25 22:00 05/27/25 06:15 Saline Lock Flush IV PUSH 10 ml Q8HR ELISSA Administration Sodium Chloride 10 ml 05/22/25 16:18 Saline Lock Flush IV PUSH PRN PRN Flush Sodium Chloride 20 ml 05/22/25 16:18 Saline Lock Flush IV PUSH PRN PRN after blood draws Radiology Results: ITS Impressions Shoulder X-Ray 05/17/25 07:38 Impression: 1: No acute fracture. Ankle X-Ray 05/17/25 07:43 Impression: 1: Periosteal reaction distal aspect of the tibia and fibula with moderate diffuse soft tissue swelling of the ankle and foot. Skin thickening is present anteriorly overlying the ankle and foot. Consider osteomyelitis in the appropriate clinical setting versus reactive changes secondary to cellulitis. Recommend correlation with MRI with contrast to exclude osteomyelitis. Foot X-Ray 05/17/25 07:43 Impression: 1: Periosteal reaction distal aspect of the tibia and fibula with moderate diffuse soft tissue swelling of the ankle and foot. Skin thickening is present anteriorly overlying the ankle and foot. Consider osteomyelitis in the appropriate clinical setting versus reactive changes secondary to cellulitis. Recommend correlation with MRI with contrast to exclude osteomyelitis. Knee X-Ray 05/17/25 07:45 Impression: 1: No acute fracture. Limited study. 2: Small joint effusion. Foot MRI 05/19/25 16:22 IMPRESSION: 1. Relatively symmetric appearance of chronic periosteal reaction along the distal metadiaphyseal regions of the tibia and fibula without associated marrow signal changes and with similarly symmetric skin thickening at the ankle and dorsum of the hindfoot as seen at the contralateral foot and ankle should be most consistent with changes of chronic venous stasis with likely venous stasis ulcer at the medial aspect of the distal right lower leg. Differential for the periosteal reaction would include less likely hypertrophic pulmonary osteoarthropathy. No abscess or lesion suspicious for osteomyelitis in the right hind foot or ankle. 2. Subchondral edema-like signal change and enhancement without cortical erosions, loss of T1 marrow fat signal without joint effusions at the right ankle, subtalar, talonavicular and calcaneocuboid joints similar to that previously seen at the left foot and ankle which could be due to osteoarthritis, inflammatory arthritis, transient osteoporosis or less likely complex regional pain syndrome. 3. Mild right Achilles tendinosis and mild peritendinitis. Duplex Scan Lower Extremity Artery 05/22/25 08:17 IMPRESSION: 1. Normal brisk systolic upstrokes throughout the arteries of the bilateral lower limbs with no evident hemodynamically significant stenosis by Doppler or grayscale imaging. Shoulder MRI 05/22/25 14:21 IMPRESSION: 1. Evaluation moderately limited by motion artifact present to some degree on all sequences. 2. Constellation of findings suggesting sequela of chronic anterior shoulder dislocation with chronic appearing shallow Hill-Sachs fracture trough at the humeral head and with low to moderate grade chondromalacia and degenerative tearing of the glenoid labrum at the anteroinferior glenoid. 3. Mild subscapularis tendinopathy without discrete tear. 4. Small left glenohumeral joint effusion and minimal subacromial/subdeltoid bursitis. Venous Doppler Study 05/24/25 17:07 IMPRESSION: Patent bilateral lower extremity veins. No evidence of deep venous thrombosis. Labs Labs: Laboratory Results - last 24 hr 05/26/25 05/26/25 05/27/25 16:38 20:33 07:46 POC Capillary Glucose 123 H 134 H 116 H 05/27/25 11:47 POC Capillary Glucose 109 H
[2025-05-27] MEDS: HYDROcodone/acetaminophen (*CRX) 5-325 MG TABLET 1 TAB PO ×2 (12:25→18:30)
[2025-05-27 14:00] VITALS: BP 100/70; PULSE 82; RESP 16; TEMP 36.3; O2SAT 97
[2025-05-27] MEDS: DICLOFENAC SODIUM 1% 100 GM GEL (*BKC) 1 APPLIC TOPICAL (17:03)
[2025-05-27] MEDS: INSULIN GLARGINE (*BKC) 100 UNITS/ML 14 UNITS SUB-Q (21:38)
[2025-05-27] MEDS: ATORVASTATIN 20 MG TABLET PO (21:38)
[2025-05-27] MEDS: MEROPENEM 1 GM in SODIUM CHLORIDE 0.9% IV 100 ML IVPB (21:39)
[2025-05-27 21:40] VITALS: BP 115/65; PULSE 83; RESP 20; TEMP 36.7; O2SAT 97
[2025-05-27 22:00] VITALS: BP 115/65; PULSE 83; RESP 20; TEMP 36.7; O2SAT 97
[2025-05-28 05:00] VITALS: BP 102/59; PULSE 83; RESP 20; TEMP 36.9; O2SAT 96
[2025-05-28] MEDS: MEROPENEM 1 GM in SODIUM CHLORIDE 0.9% IV 100 ML IVPB (05:43)
[2025-05-28] MEDS: SALINE LOCK FLUSH 10 ML IV PUSH ×3 (05:51→22:43)
[2025-05-28 07:34] VITALS: O2SAT 96
[2025-05-28] MEDS: FLUTICASONE/UMECLIDIN/VILANTER 200-62.5-25 MCG ELLIPTA 1 PUFF INHALATION (07:34)
[2025-05-28] MEDS: GABAPENTIN 300 MG CAPSULE 600 MG PO ×3 (08:12→16:52)
[2025-05-28] MEDS: PANTOPRAZOLE 40 MG TABLET PO (08:12)
[2025-05-28] MEDS: ENOXAPARIN 40 MG/0.4 ML SYRINGE SUB-Q (08:12)
[2025-05-28] MEDS: FOLIC ACID 1 MG TABLET PO (08:12)
[2025-05-28] MEDS: EUCERIN CREAM 120 GM JAR 1 APPLIC TOPICAL (08:12)
[2025-05-28] MEDS: MELOXICAM 7.5 MG TABLET 15 MG PO (08:12)
[2025-05-28] MEDS: ASPIRIN 81 MG CHEWABLE TABLET PO (08:12)
[2025-05-28] MEDS: HYDROcodone/acetaminophen (*CRX) 5-325 MG TABLET 1 TAB PO ×2 (13:37→21:52)
[2025-05-28] MEDS: MEROPENEM 1 GM in SODIUM CHLORIDE 0.9% IV 100 ML 200 ML IVPB ×2 (13:38→21:55)
--- NOTE | 2025-05-28 13:38 | P.PNIM_ITS ---
Progress Note: A&P Assessment and Plan (1) Cellulitis of both lower extremities: Code(s): L03.115 - Cellulitis of right lower limb; L03.116 - Cellulitis of left lower limb Status: Acute Assessment and Plan: Patient with cellulitis lower extremities present on admission. Wound infection prominently right lower extremity. Right ankle x-ray showed extensive skin thickening dorsum of the foot and anterior margin of the ankle. Periosteal reaction of the distal aspect of the fibula and tibia. These findings are suspicious for underlying osteomyelitis with cellulitis. Left ankle/foot xray with periosteal reaction distal aspect of the tibia and fibula with moderate diffuse soft tissue swelling of the ankle and foot. Skin thickening is present anteriorly overlying the ankle and foot. Consider osteomyelitis in the appropriate clinical setting versus reactive changes secondary to cellulitis. Recommend MRI Started on vancomycin and cefepime Bilateral Foot MRI showing no osteomyelitis. Orthopedics and General surgery folowing. BCx growing Staph haemolytics and Staph epidermidis in one set. Wound Cx negative Recent culture with MDR Pseudomonas from wound which was treated with meropenem Pain management with Tylenol and [place] [employer] consulted Bacteremia with DENN[place]. He was switched to linezolid and completed a 7 day course. Switched antibiotic to meropenem and plan to treat for 10 total days but clinically his wounds showing very little evidence of cellulitis so will order only 7 days of meropenem. (2) Bacteremia: Code(s): R78.81 - Bacteremia Status: Acute Assessment and Plan: As above (3) Diabetic ulcer of both feet: Code(s): E11.621 - Type 2 diabetes mellitus with foot ulcer; L97.519 - Non-pressure chronic ulcer of other part of right foot with unspecified severity; L97.529 - Non-pressure chronic ulcer of other part of left foot with unspecified severity Status: Acute Assessment and Plan: Recent arterial duplex showing normal brisk systolic upstrokes throughout the arteries of the bilateral lower limbs with no evident hemodynamically significant stenosis by Doppler or grayscale imaging. As above (4) Left shoulder pain: Qualifiers: Chronicity: acute Qualified Code(s): M25.512 - Pain in left shoulder Code(s): M25.512 - Pain in left shoulder Status: Acute Assessment and Plan: left shoulder pain with restricted ROM. Xray shoulder with subluxation likely due to rotator cuff tear. MRI with findings of chronic anterior shoulder dislocation with chronic appearing Hill-Sachs fracture through at the humeral head and low to moderate grade chondromalacia and degenerative tearing of the glenoid labrum at the anterior inferior glenoid subscapularis tendinopathy without discrete tear. Bursitis noted. Ortho consulted and appreciate their input. Recommended conservative treatment, therapy. PT/OT (5) Debility: Code(s): R53.81 - Other malaise Status: Acute Assessment and Plan: Patient with LUE and LLE contractures and weakness which began last year but worsened in March prompting a hospitalization in [place]. He is not able to ambulate. Images performed at the outside hospital: -- CT brain 03/27/25 showing no acute intracranial abnormalities -- Cervical spine MRI 04/02/25 showing a shallow disc osteophyte spondylosis C3-4 compressing the thecal sac but no severe canal stenosis. -- Thoracic spine MRI 04/02/25 showing no acute abnormalities. -- Lumbar spine MRI 04/02/25 showing the L5 nerve root may be impinging in the neural foramen, mild L4-5 disc bulging with mild compression of thecal sac and mild left foraminal narrowing that may be impinging on left L4 nerve root The outside hospital was using sandbags to the left knee to try to straighten joint. Ortho consulted. PT/OT ordered. Placement being arranged. (6) Type 2 diabetes mellitus without complication, without long-term current use of insulin: Code(s): E11.9 - Type 2 diabetes mellitus without complications Status: Acute Assessment and Plan: A1c 6.2%. The patient's blood glucose was reviewed on 05/28 Glucose remains well controlled. Continue AccuCheks covering with sliding scale. Hypoglycemia protocol available as needed. Continue to monitor on Lantus. Holding home oral meds. (7) COPD (chronic obstructive pulmonary disease): Code(s): J44.9 - Chronic obstructive pulmonary disease, unspecified Status: Acute Assessment and Plan: Stable. No wheezing. Remains on room air Continue Trelegy (8) Essential (primary) hypertension: Code(s): I10 - Essential (primary) hypertension Status: Acute Assessment and Plan: Patient's blood pressure was reviewed on 05/28 Blood pressure remains well controlled. Will continue to monitor (9) Chronic venous stasis dermatitis of both lower extremities: Code(s): I87.2 - Venous insufficiency (chronic) (peripheral) Status: Acute Assessment and Plan: Stable (10) GERD (gastroesophageal reflux disease): Qualifiers: Esophagitis presence: esophagitis presence not specified Qualified Code(s): K21.9 - Gastro-esophageal reflux disease without esophagitis Code(s): K21.9 - Gastro-esophageal reflux disease without esophagitis Status: Acute Assessment and Plan: Stable. Continue PPI therapy. Plan DVT Prophylaxis - Lovenox Code status - full Disp - placement being arranged vs home with home health Subjective Date/time seen: 05/28/25 13:38 Interval history: 64yo male with a past medical history of asthma, PVD, hypertension, type 2 diabetes, venous stasis present ED with a chief complaint of worsening ulcer of bilateral lower extremities and general weakness. No CP or SOB. Eating okay. No n/v. Exam Narrative: AF 98.4 102/59 83 20 96% ra Gen - NARD Chest - CTA bilaterally, nml RR CV - RRR S1/S2 Abd - Soft, NT/ND, Positive BS Ext -no pedal edema. flexion contracture left knee Neuro - Alert and appropriate Psych - Nml mood and affect Skin - Warm and dry. Bilateral ankle/foot dressings are clean, dry and intact Objective Data Vital Signs Vital Signs: Vital Signs - 24 hr 05/27/25 14:00 05/27/25 20:00 05/27/25 21:40 Temperature 97.3 F L 98.0 F Pulse Rate 82 83 Respiratory Rate 16 20 Blood Pressure 100/70 115/65 Pulse Oximetry 97 97 Oxygen Delivery Room Air 05/27/25 22:00 05/28/25 05:00 05/28/25 07:34 Temperature 98.0 F 98.4 F Pulse Rate 83 83 Respiratory Rate 20 20 Blood Pressure 115/65 102/59 L Pulse Oximetry 97 96 96 Oxygen Delivery Room Air 05/28/25 08:00 Temperature Pulse Rate Respiratory Rate Blood Pressure Pulse Oximetry Oxygen Delivery Room Air Intake/Output Intake/Output: Intake & Output 05/25/25 05/26/25 05/27/25 05/28/25 23:59 23:59 23:59 23:59 Intake Total 9134 374 9403 480 Output Total 200 1600 350 700 Balance 1506 -940 1010 -220 Meds/Results Medications: Active Medications Generic Name Dose Route Start Last Admin Trade Name Freq PRN Reason Stop Dose Admin Acetaminophen 650 mg 05/17/25 03:55 05/21/25 20:29 Acetaminophen 325 Mg Tablet PO 650 mg Q4H PRN Administration Mild Pain (1-5) Or Fever Hydrocodone Bitart/Acetaminophen 1 tab 05/25/25 17:09 05/27/25 18:30 Hydrocodone/Acetaminophen (*Crx) 5-325 Mg Tablet PO 1 tab Q6H PRN Administration Pain Rated 6 or Greater Albuterol 2.5 mg 05/18/25 13:00 Albuterol Sulfate Neb 2.5 Mg/3 Ml Inh INHALATION Q4HRT PRN Shortness Of Breath Albuterol 2 puff 05/19/25 13:40 Albuterol Sulfate (*Sp) Aerosol 1 Puff INHALATION Q4H PRN shortness of breath or wheezing Aspirin 81 mg 05/18/25 13:00 05/28/25 08:12 Aspirin 81 Mg Chewable Tablet PO 81 mg DAILY@0800 ELISSA Administration Atorvastatin Calcium 20 mg 05/18/25 21:00 05/27/25 21:38 Atorvastatin 20 Mg Tablet PO 20 mg HS ELISSA Administration Calcium Carbonate 200 mg 05/22/25 12:20 05/22/25 16:58 Calcium Carbonate (Tums) 500 Mg (200 Mg Elemental) PO 200 mg Q6H PRN Administration Indigestion Dextrose 12.5 gm 05/17/25 07:55 Dextrose 50% 25 Gm/50 Ml Syringe IV PUSH PRN PRN Hypoglycemia Protocol Diclofenac Sodium 1 applic 05/18/25 18:21 05/27/25 17:03 Diclofenac Sodium 1% 100 Gm Gel (*Bkc) TOPICAL 1 applic QID PRN Administration Muscle/Joint Pain Enoxaparin Sodium 40 mg 05/25/25 09:00 05/28/25 08:12 Enoxaparin 40 Mg/0.4 Ml Syringe SUB-Q 40 mg DAILY ELISSA Administration Fluticasone/Umeclidinium/Vilanterol 1 puff 05/18/25 13:05 05/28/25 07:34 Fluticasone/Umeclidin/Vilanter 200-62.5-25 Mcg Ellipta INHALATION 1 puff DAILYRT ELISSA Administration Folic Acid 1 mg 05/20/25 09:00 05/28/25 08:12 Folic Acid 1 Mg Tablet PO 1 mg DAILY ELISSA Administration Gabapentin 600 mg 05/18/25 13:00 05/28/25 12:27 Gabapentin 300 Mg Capsule PO 600 mg TID ELISSA Administration Glucagon 1 mg 05/17/25 07:55 Glucagon For Inj 1 Mg Vial IM PRN PRN Hypoglycemia Protocol Glucose 15 gm 05/17/25 07:55 Glucose Oral Gel 15 Gm Of Glucse In 37.5 Gm Tube PO PRN PRN Hypoglycemia Protocol Dextrose 1,000 mls @ 100 mls/hr 05/17/25 07:55 Dextrose 5% 1,000 Ml IVPB PRN PRN Hypoglycemia Protocol Meropenem 1 gm/ Sodium 100 mls @ 200 mls/hr 05/22/25 14:30 05/28/25 05:43 Chloride IVPB 05/29/25 06:29 100 mls/hr Q8HR ELISSA Administration Insulin Aspart 4 - 8 units 05/17/25 08:00 05/28/25 11:46 Insulin Aspart (*Bkc) 100 Units/Ml SUB-Q Not Given TIDWM [facility] Protocol Insulin Aspart 2 - 4 units 05/17/25 21:00 05/27/25 21:31 Insulin Aspart (*Bkc) 100 Units/Ml SUB-Q Not Given HS [facility] Protocol Insulin Glargine 14 units 05/17/25 21:00 05/27/25 21:38 Insulin Glargine (*Bkc) 100 Units/Ml 0.15 units/kg (14 units) 14 units SUB-Q Administration HS [facility] Lisinopril 10 mg 05/18/25 13:05 05/28/25 08:12 Lisinopril 10 Mg Tablet PO 10 mg DAILY ELISSA Administration Lorazepam 0.5 mg 05/21/25 15:12 05/22/25 13:28 Lorazepam (*Crx) 0.5 Mg Tablet PO 0.5 mg ONCE PRN Administration MRI ANXIETY Meloxicam 15 mg 05/20/25 09:00 05/28/25 08:12 Meloxicam 7.5 Mg Tablet PO 15 mg DAILY ELISSA Administration Multi-Ingred Cream/Lotion/Oil/Oint 1 applic 05/26/25 14:00 05/28/25 08:12 Eucerin Cream 120 Gm Jar TOPICAL 1 applic DAILY ELISSA Administration Ondansetron HCl 4 mg 05/17/25 03:55 Ondansetron Inj 4 Mg/2 Ml Vial IV PUSH Q4H PRN Nausea Pantoprazole Sodium 40 mg 05/23/25 09:00 05/28/25 08:12 Pantoprazole 40 Mg Tablet PO 40 mg QAM ELISSA Administration Polyethylene Glycol 17 gm 05/22/25 09:00 05/28/25 08:12 Polyethylene Glycol 3350 17 Gm Powd.Pack PO Not Given QAM ELISSA Sodium Chloride 10 ml 05/22/25 22:00 05/28/25 05:51 Saline Lock Flush IV PUSH 10 ml Q8HR ELISSA Administration Sodium Chloride 10 ml 05/22/25 16:18 Saline Lock Flush IV PUSH PRN PRN Flush Sodium Chloride 20 ml 05/22/25 16:18 Saline Lock Flush IV PUSH PRN PRN after blood draws Radiology Results: ITS Impressions Shoulder X-Ray 05/17/25 07:38 Impression: 1: No acute fracture. Ankle X-Ray 05/17/25 07:43 Impression: 1: Periosteal reaction distal aspect of the tibia and fibula with moderate diffuse soft tissue swelling of the ankle and foot. Skin thickening is present anteriorly overlying the ankle and foot. Consider osteomyelitis in the appropriate clinical setting versus reactive changes secondary to cellulitis. Recommend correlation with MRI with contrast to exclude osteomyelitis. Foot X-Ray 05/17/25 07:43 Impression: 1: Periosteal reaction distal aspect of the tibia and fibula with moderate diffuse soft tissue swelling of the ankle and foot. Skin thickening is present anteriorly overlying the ankle and foot. Consider osteomyelitis in the appropriate clinical setting versus reactive changes secondary to cellulitis. Recommend correlation with MRI with contrast to exclude osteomyelitis. Knee X-Ray 05/17/25 07:45 Impression: 1: No acute fracture. Limited study. 2: Small joint effusion. Foot MRI 05/19/25 16:22 IMPRESSION: 1. Relatively symmetric appearance of chronic periosteal reaction along the distal metadiaphyseal regions of the tibia and fibula without associated marrow signal changes and with similarly symmetric skin thickening at the ankle and dorsum of the hindfoot as seen at the contralateral foot and ankle should be most consistent with changes of chronic venous stasis with likely venous stasis ulcer at the medial aspect of the distal right lower leg. Differential for the periosteal reaction would include less likely hypertrophic pulmonary osteoarthropathy. No abscess or lesion suspicious for osteomyelitis in the right hind foot or ankle. 2. Subchondral edema-like signal change and enhancement without cortical erosions, loss of T1 marrow fat signal without joint effusions at the right ankle, subtalar, talonavicular and calcaneocuboid joints similar to that previously seen at the left foot and ankle which could be due to osteoarthritis, inflammatory arthritis, transient osteoporosis or less likely complex regional pain syndrome. 3. Mild right Achilles tendinosis and mild peritendinitis. Duplex Scan Lower Extremity Artery 05/22/25 08:17 IMPRESSION: 1. Normal brisk systolic upstrokes throughout the arteries of the bilateral lower limbs with no evident hemodynamically significant stenosis by Doppler or grayscale imaging. Shoulder MRI 05/22/25 14:21 IMPRESSION: 1. Evaluation moderately limited by motion artifact present to some degree on all sequences. 2. Constellation of findings suggesting sequela of chronic anterior shoulder dislocation with chronic appearing shallow Hill-Sachs fracture trough at the humeral head and with low to moderate grade chondromalacia and degenerative tearing of the glenoid labrum at the anteroinferior glenoid. 3. Mild subscapularis tendinopathy without discrete tear. 4. Small left glenohumeral joint effusion and minimal subacromial/subdeltoid bursitis. Venous Doppler Study 05/24/25 17:07 IMPRESSION: Patent bilateral lower extremity veins. No evidence of deep venous thrombosis. Labs Labs: Laboratory Results - last 24 hr 05/27/25 05/27/25 05/28/25 16:46 19:54 07:27 POC Capillary Glucose 122 H 145 H 115 H 05/28/25 11:38 POC Capillary Glucose 149 H
[2025-05-28 14:00] VITALS: BP 107/57; PULSE 96; RESP 18; TEMP 36.5; O2SAT 98
[2025-05-28 19:51] VITALS: BP 104/59; PULSE 90; RESP 16; TEMP 36.4; O2SAT 92
[2025-05-28] MEDS: ATORVASTATIN 20 MG TABLET PO (21:53)
[2025-05-28] MEDS: INSULIN GLARGINE (*BKC) 100 UNITS/ML 14 UNITS SUB-Q (22:03)
[2025-05-29 05:26] VITALS: BP 113/41; PULSE 92; RESP 16; TEMP 36.5; O2SAT 99
[2025-05-29] MEDS: HYDROcodone/acetaminophen (*CRX) 5-325 MG TABLET 1 TAB PO ×4 (05:34→23:09)
[2025-05-29] MEDS: MEROPENEM 1 GM in SODIUM CHLORIDE 0.9% IV 100 ML 200 ML IVPB (05:35)
[2025-05-29] MEDS: SALINE LOCK FLUSH 10 ML IV PUSH ×3 (05:38→21:05)
[2025-05-29 06:21] LABS: Hematocrit 36.1 % (42.0-52.0); Hemoglobin 11.2 g/dL (14.0-18.0); Mean Corpuscular HGB Conc 31.0 g/dl (32-36); Mean Corpuscular Hemoglobin 25.7 pg (26-34); Mean Corpuscular Volume 82.8 fl (80-100); Platelet Count Result 442 k/mm3 (150-375); Red Blood Count 4.36 M/mm3 (4.6-6.20); White Blood Count 12.6 K/mm3 (4.5-10.0)
[2025-05-29 06:42] LABS: Anion Gap 6 mmol/L (4-12); Blood Urea Nitrogen 19 mg/dL (9-20); Calcium 9.1 mg/dL (8.4-10.2); Carbon Dioxide 25 mmol/L (22-30); Chloride 100 mmol/L (98-107); Estimated CRCL calculation 130 ml/min; Estimated Glomerular Filt Rate > 60; Glucose 110 mg/dL (65-110); Potassium 4.1 mmol/L (3.4-5.0); Sodium 131 mmol/L (137-145)
[2025-05-29 08:00] VITALS: O2SAT 94
[2025-05-29 08:06] VITALS: PULSE 94; RESP 20; O2SAT 93
[2025-05-29] MEDS: FLUTICASONE/UMECLIDIN/VILANTER 200-62.5-25 MCG ELLIPTA 1 PUFF INHALATION (08:06)
[2025-05-29] MEDS: ENOXAPARIN 40 MG/0.4 ML SYRINGE SUB-Q (10:00)
[2025-05-29] MEDS: MELOXICAM 7.5 MG TABLET 15 MG PO (10:00)
[2025-05-29] MEDS: EUCERIN CREAM 120 GM JAR 1 APPLIC TOPICAL (10:00)
[2025-05-29] MEDS: LIDOCAINE 5% PATCH 1 PATCH TRANSDERM (10:00)
[2025-05-29] MEDS: GABAPENTIN 300 MG CAPSULE 600 MG PO ×3 (10:00→17:26)
[2025-05-29] MEDS: PANTOPRAZOLE 40 MG TABLET PO (10:00)
[2025-05-29] MEDS: FOLIC ACID 1 MG TABLET PO (10:00)
[2025-05-29] MEDS: ASPIRIN 81 MG CHEWABLE TABLET PO (10:00)
--- NOTE | 2025-05-29 13:51 | P.PNIM_ITS ---
Progress Note: A&P Assessment and Plan (1) Cellulitis of both lower extremities: Code(s): L03.115 - Cellulitis of right lower limb; L03.116 - Cellulitis of left lower limb Status: Acute Assessment and Plan: Patient with cellulitis lower extremities present on admission. Wound infection prominently right lower extremity. Right ankle x-ray showed extensive skin thickening dorsum of the foot and anterior margin of the ankle. Periosteal reaction of the distal aspect of the fibula and tibia. These findings are suspicious for underlying osteomyelitis with cellulitis. Left ankle/foot xray with periosteal reaction distal aspect of the tibia and fibula with moderate diffuse soft tissue swelling of the ankle and foot. Skin thickening is present anteriorly overlying the ankle and foot. Consider osteomyelitis in the appropriate clinical setting versus reactive changes secondary to cellulitis. Recommend MRI Started on vancomycin and cefepime Bilateral Foot MRI showing no osteomyelitis. Orthopedics and General surgery following. BCx growing Staph haemolytics and Staph epidermidis in one set. 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 Switched antibiotic to meropenem and completed a 7 day course. Initially, plan to treat for 10 total days but clinically his wounds showing very little evidence of cellulitis so only required 7 days of meropenem. (2) Bacteremia: Code(s): R78.81 - Bacteremia Status: Acute Assessment and Plan: As above (3) Diabetic ulcer of both feet: Code(s): E11.621 - Type 2 diabetes mellitus with foot ulcer; L97.519 - Non-pressure chronic ulcer of other part of right foot with unspecified severity; L97.529 - Non-pressure chronic ulcer of other part of left foot with unspecified severity Status: Acute Assessment and Plan: Recent arterial duplex showing normal brisk systolic upstrokes throughout the arteries of the bilateral lower limbs with no evident hemodynamically significant stenosis by Doppler or grayscale imaging. As above (4) Left shoulder pain: Qualifiers: Chronicity: acute Qualified Code(s): M25.512 - Pain in left shoulder Code(s): M25.512 - Pain in left shoulder Status: Acute Assessment and Plan: left shoulder pain with restricted ROM. Xray shoulder with subluxation likely due to rotator cuff tear. MRI with findings of chronic anterior shoulder dislocation with chronic appearing Hill-Sachs fracture through at the humeral head and low to moderate grade chondromalacia and degenerative tearing of the glenoid labrum at the anterior inferior glenoid subscapularis tendinopathy without discrete tear. Bursitis noted. Ortho consulted and appreciate their input. Recommended conservative treatment, therapy. PT/OT (5) Debility: Code(s): R53.81 - Other malaise Status: Acute Assessment and Plan: Patient with LUE and LLE contractures and weakness which began last year but worsened in March prompting a hospitalization in [place]. He is not able to ambulate. Images performed at the outside hospital: -- CT brain 03/27/25 showing no acute intracranial abnormalities -- Cervical spine MRI 04/02/25 showing a shallow disc osteophyte spondylosis C3-4 compressing the thecal sac but no severe canal stenosis. -- Thoracic spine MRI 04/02/25 showing no acute abnormalities. -- Lumbar spine MRI 04/02/25 showing the L5 nerve root may be impinging in the neural foramen, mild L4-5 disc bulging with mild compression of thecal sac and mild left foraminal narrowing that may be impinging on left L4 nerve root The outside hospital was using sandbags to the left knee to try to straighten joint. Ortho consulted. PT/OT ordered. Placement being arranged. (6) Type 2 diabetes mellitus without complication, without long-term current use of insulin: Code(s): E11.9 - Type 2 diabetes mellitus without complications Status: Acute Assessment and Plan: A1c 6.2%. The patient's blood glucose was reviewed on 05/29 Glucose remains well controlled. Continue AccuCheks covering with sliding scale. Hypoglycemia protocol available as needed. Continue to monitor on Lantus. (7) COPD (chronic obstructive pulmonary disease): Code(s): J44.9 - Chronic obstructive pulmonary disease, unspecified Status: Acute Assessment and Plan: Stable. No wheezing. Remains on room air Continue Trelegy (8) Essential (primary) hypertension: Code(s): I10 - Essential (primary) hypertension Status: Acute Assessment and Plan: Patient's blood pressure was reviewed on 05/29 Blood pressure remains well controlled. Will continue to monitor (9) Chronic venous stasis dermatitis of both lower extremities: Code(s): I87.2 - Venous insufficiency (chronic) (peripheral) Status: Acute Assessment and Plan: Stable (10) GERD (gastroesophageal reflux disease): Qualifiers: Esophagitis presence: esophagitis presence not specified Qualified Code(s): K21.9 - Gastro-esophageal reflux disease without esophagitis Code(s): K21.9 - Gastro-esophageal reflux disease without esophagitis Status: Acute Assessment and Plan: Stable. Continue PPI therapy. Plan DVT Prophylaxis - Lovenox Code status - full Disp - placement being arranged vs home with home health Subjective Date/time seen: 05/29/25 13:51 Interval history: 64yo male with a past medical history of asthma, PVD, hypertension, type 2 diabetes, venous stasis present ED with a chief complaint of worsening ulcer of bilateral lower extremities and general weakness. Complains of left knee and ankle pain. No Cp or SOB. No n/v. Tolerating the wound care. Exam Narrative: AF 97.7 113/41 94 20 93% ra Gen - NARD Chest - CTA bilaterally, nml RR CV - RRR S1/S2 Abd - Soft, NT/ND, Positive BS Ext -no pedal edema. flexion contracture left knee Neuro - Alert and appropriate Psych - Nml mood and affect Skin - Warm and dry. Bilateral ankle/foot dressings are loose with some wounds drying up. Dried scale noted. Objective Data Vital Signs Vital Signs: Vital Signs - 24 hr 05/28/25 14:00 05/28/25 19:51 05/28/25 20:00 Temperature 97.7 F 97.6 F Pulse Rate 96 90 Respiratory Rate 18 16 Blood Pressure 107/57 L 104/59 L Pulse Oximetry 98 92 Oxygen Delivery Room Air 05/29/25 05:26 05/29/25 08:06 05/29/25 08:06 Temperature 97.7 F Pulse Rate 92 94 94 Respiratory Rate 16 20 20 Blood Pressure 113/41 L Pulse Oximetry 99 93 Oxygen Delivery Room Air Intake/Output Intake/Output: Intake & Output 05/26/25 05/27/25 05/28/25 05/29/25 23:59 23:59 23:59 23:59 Intake Total 660 1360 1450 948 Output Total 4421 500 7144 700 Balance -940 1010 350 248 Meds/Results Medications: Active Medications Generic Name Dose Route Start Last Admin Trade Name Freq PRN Reason Stop Dose Admin Acetaminophen 650 mg 05/17/25 03:55 05/21/25 20:29 Acetaminophen 325 Mg Tablet PO 650 mg Q4H PRN Administration Mild Pain (1-5) Or Fever Hydrocodone Bitart/Acetaminophen 1 tab 05/25/25 17:09 05/29/25 12:24 Hydrocodone/Acetaminophen (*Crx) 5-325 Mg Tablet PO 1 tab Q6H PRN Administration Pain Rated 6 or Greater Albuterol 2.5 mg 05/18/25 13:00 Albuterol Sulfate Neb 2.5 Mg/3 Ml Inh INHALATION Q4HRT PRN Shortness Of Breath Albuterol 2 puff 05/19/25 13:40 Albuterol Sulfate (*Sp) Aerosol 1 Puff INHALATION Q4H PRN shortness of breath or wheezing Aspirin 81 mg 05/18/25 13:00 05/29/25 10:00 Aspirin 81 Mg Chewable Tablet PO 81 mg DAILY@0800 ELISSA Administration Atorvastatin Calcium 20 mg 05/18/25 21:00 05/28/25 21:53 Atorvastatin 20 Mg Tablet PO 20 mg HS ELISSA Administration Calcium Carbonate 200 mg 05/22/25 12:20 05/22/25 16:58 Calcium Carbonate (Tums) 500 Mg (200 Mg Elemental) PO 200 mg Q6H PRN Administration Indigestion Dextrose 12.5 gm 05/17/25 07:55 Dextrose 50% 25 Gm/50 Ml Syringe IV PUSH PRN PRN Hypoglycemia Protocol Diclofenac Sodium 1 applic 05/18/25 18:21 05/27/25 17:03 Diclofenac Sodium 1% 100 Gm Gel (*Bkc) TOPICAL 1 applic QID PRN Administration Muscle/Joint Pain Enoxaparin Sodium 40 mg 05/25/25 09:00 05/29/25 10:00 Enoxaparin 40 Mg/0.4 Ml Syringe SUB-Q 40 mg DAILY ELISSA Administration Fluticasone/Umeclidinium/Vilanterol 1 puff 05/18/25 13:05 05/29/25 08:06 Fluticasone/Umeclidin/Vilanter 200-62.5-25 Mcg Ellipta INHALATION 1 puff DAILYRT ELISSA Administration Folic Acid 1 mg 05/20/25 09:00 05/29/25 10:00 Folic Acid 1 Mg Tablet PO 1 mg DAILY ELISSA Administration Gabapentin 600 mg 05/18/25 13:00 05/29/25 12:23 Gabapentin 300 Mg Capsule PO 600 mg TID ELISSA Administration Glucagon 1 mg 05/17/25 07:55 Glucagon For Inj 1 Mg Vial IM PRN PRN Hypoglycemia Protocol Glucose 15 gm 05/17/25 07:55 Glucose Oral Gel 15 Gm Of Glucse In 37.5 Gm Tube PO PRN PRN Hypoglycemia Protocol Dextrose 1,000 mls @ 100 mls/hr 05/17/25 07:55 Dextrose 5% 1,000 Ml IVPB PRN PRN Hypoglycemia Protocol Insulin Aspart 4 - 8 units 05/17/25 08:00 05/29/25 12:21 Insulin Aspart (*Bkc) 100 Units/Ml SUB-Q Not Given TIDWM [facility] Protocol Insulin Aspart 2 - 4 units 05/17/25 21:00 05/28/25 22:43 Insulin Aspart (*Bkc) 100 Units/Ml SUB-Q Not Given HS [facility] Protocol Insulin Glargine 14 units 05/17/25 21:00 05/28/25 22:03 Insulin Glargine (*Bkc) 100 Units/Ml 0.15 units/kg (14 units) 14 units SUB-Q Administration HS ELISSA Lidocaine 1 patch 05/29/25 09:00 05/29/25 10:00 Lidocaine 5% Patch TRANSDERM 1 patch DAILY ELISSA Administration Lisinopril 10 mg 05/18/25 13:05 05/29/25 10:00 Lisinopril 10 Mg Tablet PO 10 mg DAILY ELISSA Administration Lorazepam 0.5 mg 05/21/25 15:12 05/22/25 13:28 Lorazepam (*Crx) 0.5 Mg Tablet PO 0.5 mg ONCE PRN Administration MRI ANXIETY Meloxicam 15 mg 05/20/25 09:00 05/29/25 10:00 Meloxicam 7.5 Mg Tablet PO 15 mg DAILY ELISSA Administration Multi-Ingred Cream/Lotion/Oil/Oint 1 applic 05/26/25 14:00 05/29/25 10:00 Eucerin Cream 120 Gm Jar TOPICAL 1 applic DAILY ELISSA Administration Ondansetron HCl 4 mg 05/17/25 03:55 Ondansetron Inj 4 Mg/2 Ml Vial IV PUSH Q4H PRN Nausea Pantoprazole Sodium 40 mg 05/23/25 09:00 05/29/25 10:00 Pantoprazole 40 Mg Tablet PO 40 mg QAM ELISSA Administration Polyethylene Glycol 17 gm 05/22/25 09:00 05/29/25 10:15 Polyethylene Glycol 3350 17 Gm Powd.Pack PO Not Given QAM ELISSA Sodium Chloride 10 ml 05/22/25 22:00 05/29/25 12:23 Saline Lock Flush IV PUSH 10 ml Q8HR ELISSA Administration Sodium Chloride 10 ml 05/22/25 16:18 Saline Lock Flush IV PUSH PRN PRN Flush Sodium Chloride 20 ml 05/22/25 16:18 Saline Lock Flush IV PUSH PRN PRN after blood draws Radiology Results: ITS Impressions Shoulder X-Ray 05/17/25 07:38 Impression: 1: No acute fracture. Ankle X-Ray 05/17/25 07:43 Impression: 1: Periosteal reaction distal aspect of the tibia and fibula with moderate diffuse soft tissue swelling of the ankle and foot. Skin thickening is present anteriorly overlying the ankle and foot. Consider osteomyelitis in the appropriate clinical setting versus reactive changes secondary to cellulitis. Recommend correlation with MRI with contrast to exclude osteomyelitis. Foot X-Ray 05/17/25 07:43 Impression: 1: Periosteal reaction distal aspect of the tibia and fibula with moderate diffuse soft tissue swelling of the ankle and foot. Skin thickening is present anteriorly overlying the ankle and foot. Consider osteomyelitis in the appropriate clinical setting versus reactive changes secondary to cellulitis. Recommend correlation with MRI with contrast to exclude osteomyelitis. Knee X-Ray 05/17/25 07:45 Impression: 1: No acute fracture. Limited study. 2: Small joint effusion. Foot MRI 05/19/25 16:22 IMPRESSION: 1. Relatively symmetric appearance of chronic periosteal reaction along the distal metadiaphyseal regions of the tibia and fibula without associated marrow signal changes and with similarly symmetric skin thickening at the ankle and dorsum of the hindfoot as seen at the contralateral foot and ankle should be most consistent with changes of chronic venous stasis with likely venous stasis ulcer at the medial aspect of the distal right lower leg. Differential for the periosteal reaction would include less likely hypertrophic pulmonary osteoarthropathy. No abscess or lesion suspicious for osteomyelitis in the right hind foot or ankle. 2. Subchondral edema-like signal change and enhancement without cortical erosions, loss of T1 marrow fat signal without joint effusions at the right ankle, subtalar, talonavicular and calcaneocuboid joints similar to that previously seen at the left foot and ankle which could be due to osteoarthritis, inflammatory arthritis, transient osteoporosis or less likely complex regional pain syndrome. 3. Mild right Achilles tendinosis and mild peritendinitis. Duplex Scan Lower Extremity Artery 05/22/25 08:17 IMPRESSION: 1. Normal brisk systolic upstrokes throughout the arteries of the bilateral lower limbs with no evident hemodynamically significant stenosis by Doppler or grayscale imaging. Shoulder MRI 05/22/25 14:21 IMPRESSION: 1. Evaluation moderately limited by motion artifact present to some degree on all sequences. 2. Constellation of findings suggesting sequela of chronic anterior shoulder dislocation with chronic appearing shallow Hill-Sachs fracture trough at the humeral head and with low to moderate grade chondromalacia and degenerative tearing of the glenoid labrum at the anteroinferior glenoid. 3. Mild subscapularis tendinopathy without discrete tear. 4. Small left glenohumeral joint effusion and minimal subacromial/subdeltoid bursitis. Venous Doppler Study 05/24/25 17:07 IMPRESSION: Patent bilateral lower extremity veins. No evidence of deep venous thrombosis. Labs Labs: Laboratory Results - last 24 hr 05/28/25 05/28/25 05/29/25 17:01 19:53 05:55 WBC 12.6 H RBC 4.36 L Hgb 11.2 L Hct 36.1 L MCV 82.8 MCH 25.7 L MCHC 31.0 L RDW 14.1 Plt Count Cancelled MPV % Immature Plt Fraction Sodium Potassium Chloride Carbon Dioxide Anion Gap BUN Creatinine Estim Creat Clear Calc Estimated GFR Glucose POC Capillary Glucose 110 H 135 H Calcium 05/29/25 05/29/25 05/29/25 05:55 05:55 07:16 WBC RBC Hgb Hct MCV MCH MCHC RDW Plt Count 442 H MPV Cancelled 8.1 % Immature Plt Fraction Cancelled Sodium 131 L Potassium 4.1 Chloride 100 Carbon Dioxide 25 Anion Gap 6 BUN 19 Creatinine 0.53 L Estim Creat Clear Calc 130 Estimated GFR > 60 Glucose 110 POC Capillary Glucose 114 H Calcium 9.1 05/29/25 11:21 WBC RBC Hgb Hct MCV MCH MCHC RDW Plt Count MPV % Immature Plt Fraction Sodium Potassium Chloride Carbon Dioxide Anion Gap BUN Creatinine Estim Creat Clear Calc Estimated GFR Glucose POC Capillary Glucose 119 H Calcium
[2025-05-29 14:00] VITALS: BP 112/74; PULSE 106; RESP 16; TEMP 36.5; O2SAT 94
[2025-05-29 20:55] VITALS: BP 112/67; PULSE 98; RESP 16; TEMP 36.3; O2SAT 98
[2025-05-29] MEDS: ATORVASTATIN 20 MG TABLET PO (20:56)
[2025-05-29] MEDS: INSULIN GLARGINE (*BKC) 100 UNITS/ML 14 UNITS SUB-Q (20:59)
[2025-05-29 23:33] VITALS: PULSE 76; RESP 20; O2SAT 98
[2025-05-30 05:22] VITALS: BP 110/61; PULSE 81; RESP 18; TEMP 36.9; O2SAT 98
[2025-05-30] MEDS: SALINE LOCK FLUSH 10 ML IV PUSH ×2 (05:42→12:40)
[2025-05-30 06:00] LABS: Hematocrit 35.1 % (42.0-52.0); Hemoglobin 11.2 g/dL (14.0-18.0); Immature Granulocyte Percent A 1.8 % (0-0.5); Lymphocytes Absolute Auto 1.66 K/mm3 (0.9-3.2); Mean Corpuscular HGB Conc 31.9 g/dl (32-36); Mean Corpuscular Hemoglobin 26.0 pg (26-34); Mean Corpuscular Volume 81.6 fl (80-100); Nucleated Red Blood Cells Absolute Auto 0.000 K/mm3 (0.0-0.012); Nucleated Red Blood Cells Perc 0.0 % (0.0-0.2); Platelet Count Result 457 k/mm3 (150-375); Red Blood Count 4.30 M/mm3 (4.6-6.20); White Blood Count 13.9 K/mm3 (4.5-10.0)
[2025-05-30 08:00] VITALS: O2SAT 95
[2025-05-30] MEDS: FLUTICASONE/UMECLIDIN/VILANTER 200-62.5-25 MCG ELLIPTA 1 PUFF INHALATION (08:06)
[2025-05-30 08:08] VITALS: PULSE 87; RESP 20; O2SAT 95
[2025-05-30] MEDS: LIDOCAINE 5% PATCH 1 PATCH TRANSDERM (08:54)
[2025-05-30] MEDS: ENOXAPARIN 40 MG/0.4 ML SYRINGE SUB-Q (08:54)
[2025-05-30] MEDS: HYDROcodone/acetaminophen (*CRX) 5-325 MG TABLET 1 TAB PO (08:55)
[2025-05-30] MEDS: FOLIC ACID 1 MG TABLET PO (08:55)
[2025-05-30] MEDS: GABAPENTIN 300 MG CAPSULE 600 MG PO ×2 (08:56→12:41)
[2025-05-30] MEDS: MELOXICAM 7.5 MG TABLET 15 MG PO (08:56)
[2025-05-30] MEDS: EUCERIN CREAM 120 GM JAR 1 APPLIC TOPICAL (08:57)
[2025-05-30] MEDS: ASPIRIN 81 MG CHEWABLE TABLET PO (08:57)
[2025-05-30] MEDS: PANTOPRAZOLE 40 MG TABLET PO (08:57)
--- NOTE | 2025-05-30 10:13 | PCNWS ---
Weekly nutritional screen. Patient is tolerating current diabetic diet with adequate intake 100% all meals. No weight loss reported. No nutritional recommendations at this time.
[2025-05-30] MEDS: DICLOFENAC SODIUM 1% 100 GM GEL (*BKC) 1 APPLIC TOPICAL (11:47)
--- NOTE | 2025-05-30 12:14 | PM.DS ---
DS: Admitting Diagnosis Discharge Date 05/30/25 Admitting Diagnosis General weakness DS: Discharge Diagnosis Discharge Diagnosis (1) Cellulitis of both lower extremities: Code(s): L03.115 - Cellulitis of right lower limb; L03.116 - Cellulitis of left lower limb Status: Acute (2) Bacteremia: Code(s): R78.81 - Bacteremia Status: Acute (3) Diabetic ulcer of both feet: Code(s): E11.621 - Type 2 diabetes mellitus with foot ulcer; L97.519 - Non-pressure chronic ulcer of other part of right foot with unspecified severity; L97.529 - Non-pressure chronic ulcer of other part of left foot with unspecified severity Status: Acute (4) Left shoulder pain: Qualifiers: Chronicity: acute Qualified Code(s): M25.512 - Pain in left shoulder Code(s): M25.512 - Pain in left shoulder Status: Acute (5) Debility: Code(s): R53.81 - Other malaise Status: Acute (6) Type 2 diabetes mellitus without complication, without long-term current use of insulin: Code(s): E11.9 - Type 2 diabetes mellitus without complications Status: Acute (7) COPD (chronic obstructive pulmonary disease): Code(s): J44.9 - Chronic obstructive pulmonary disease, unspecified Status: Acute (8) Essential (primary) hypertension: Code(s): I10 - Essential (primary) hypertension Status: Acute (9) Chronic venous stasis dermatitis of both lower extremities: Code(s): I87.2 - Venous insufficiency (chronic) (peripheral) Status: Acute (10) GERD (gastroesophageal reflux disease): Qualifiers: Esophagitis presence: esophagitis presence not specified Qualified Code(s): K21.9 - Gastro-esophageal reflux disease without esophagitis Code(s): K21.9 - Gastro-esophageal reflux disease without esophagitis Status: Acute DS: Summary Hospital Course Reason for hospitalization: 64yo male with a past medical history of asthma, PVD, hypertension, type 2 diabetes, venous stasis present ED with a chief complaint of worsening ulcer of bilateral lower extremities and general weakness. Please see H&P for details. Hospital Course: Patient with cellulitis lower extremities present on admission. Wound infection prominently right lower extremity. Right ankle x-ray showed extensive skin thickening dorsum of the foot and anterior margin of the ankle. Periosteal reaction of the distal aspect of the fibula and tibia. Left ankle/foot xray with periosteal reaction distal aspect of the tibia and fibula with moderate diffuse soft tissue swelling of the ankle and foot. Skin thickening is present anteriorly overlying the ankle and foot. Recent arterial duplex showing normal brisk systolic upstrokes throughout the arteries of the bilateral lower limbs with no evident hemodynamically significant stenosis by Doppler or grayscale imaging. MRI was recommended. Started on vancomycin and cefepime after cultures obtained. Bilateral Foot MRI showing no osteomyelitis. Orthopedics and General surgery consulted. BCx growing Staph haemolytics and Staph epidermidis in one set. Wound Cx negative. Recent culture with MDR Pseudomonas from wound which was treated with meropenem. orthotic/prosthetic practitioner consulted and he had frequent dressing changes. He was switched to linezolid and completed a 7 day course. Switched antibiotic to meropenem and completed a 7 day course. Initially, plan to treat for 10 total days but clinically his wounds showing very little evidence of cellulitis so only required 7 days of meropenem. WBC was noted to be higher (13.9K) but wounds continue to improve and no symptoms of UTI or PNA. We decided to monitor off abx. Patient with left shoulder pain with restricted ROM. Xray shoulder with subluxation likely due to rotator cuff tear. MRI with findings of chronic anterior shoulder dislocation with chronic appearing Hill-Sachs fracture through at the humeral head and low to moderate grade chondromalacia and degenerative tearing of the glenoid labrum at the anterior inferior glenoid subscapularis tendinopathy without discrete tear. Bursitis noted. Patient with LUE and LLE contractures and weakness which began last year but worsened in March prompting a hospitalization in [place]. He is not able to ambulate. Images performed at the outside hospital: -- CT brain 03/27/25 showing no acute intracranial abnormalities -- Cervical spine MRI 04/02/25 showing a shallow disc osteophyte spondylosis C3-4 compressing the thecal sac but no severe canal stenosis. -- Thoracic spine MRI 04/02/25 showing no acute abnormalities. -- Lumbar spine MRI 04/02/25 showing the L5 nerve root may be impinging in the neural foramen, mild L4-5 disc bulging with mild compression of thecal sac and mild left foraminal narrowing that may be impinging on left L4 nerve root The outside hospital was using sandbags to the left knee to try to straighten joint. Ortho consulted and appreciate their input. They recommended conservative treatment with therapy. PT/OT ordered. Patient informed of the discharge. Discussed with patient and and all questions answered. He overall did well and was able to be discharged on 05/30/25. Status at Discharge Cognitive/behavioral status at discharge: stable Time Spent with Patient Time attestation: Total time spent providing and/or coordinating discharge services: 35 minutes Time spent: Greater than 30 minutes Exam Narrative: AF 98.4 110/61 87 20 95% ra Gen - NARD Chest - CTA bilaterally, nml RR CV - RRR S1/S2 Abd - Soft, NT/ND, Positive BS Ext -no pedal edema. flexion contracture left knee Neuro - Alert and appropriate Psych - Nml mood and affect Skin - Warm and dry. multiple small and large shallow ulcers with excellent granulation tissue without exudate and scant weeping. No strong odor. Some lesions have completely healed. Bilateral feet with dried scale. DS: Data Data Completed and Pending Labs on day of discharge: Labs from last 24 hours 05/30/25 05/30/25 05/30/25 11:39 07:38 05:35 WBC 13.9 H RBC 4.30 L Hgb 11.2 L Hct 35.1 L MCV 81.6 MCH 26.0 MCHC 31.9 L RDW 14.4 Plt Count 457 H MPV 8.0 Immature Gran % (Auto) 1.8 H Neut % (Auto) 69.3 Lymph % (Auto) 11.9 L [place] % (Auto) 12.1 H Eos % (Auto) 4.4 Baso % (Auto) 0.5 Lymph # (Auto) 1.66 [place] # (Auto) 1.7 H Eos # (Auto) 0.6 H Baso # (Auto) 0.1 Abs Immat Gran (auto) 0.25 H Absolute Neuts (auto) 9.7 H Absolute Nucleated RBC 0.000 Nucleated RBC % 0.0 POC Capillary Glucose 171 H 124 H 05/29/25 05/29/25 20:52 16:24 WBC RBC Hgb Hct MCV MCH MCHC RDW Plt Count MPV Immature Gran % (Auto) Neut % (Auto) Lymph % (Auto) [place] % (Auto) Eos % (Auto) Baso % (Auto) Lymph # (Auto) [place] # (Auto) Eos # (Auto) Baso # (Auto) Abs Immat Gran (auto) Absolute Neuts (auto) Absolute Nucleated RBC Nucleated RBC % POC Capillary Glucose 139 H 109 H Discharge Plan Discharge Attending physician on discharge: Lex Singh Consulting providers: [place]io Wolfe Discharging Clinician: Lex Singh Anticipated Discharge Date/Time: 05/30/25 12:32 Patient Disposition: SNF Activity: as tolerated Diet: diabetic Wound Care Instructions: follow printed instructions and change dressing daily Discharge Instructions: Wound Care Instructions: Daily wash lower legs and feet with soap and water. Then apply a thin layer of Silver gel to all wounds, cover with ABD pads and wrap with kerlex. Patient to wear some form of compression stocking/sleeve to the bilateral lower legs and feet for edema control. Use heel protectors when in bed. Eucerin cream to the bilateral feet intact skin daily. Patient Language: [place] Stand Alone Forms: General Discharge Information Follow-up/Referrals: Loren Douglass MD [Primary Care Provider] - Call for Appointment Discharge Medications: New hydrocodone-acetaminophen 5-325 mg Tablet 1 tablet PO Q6H PRN (Reason: Pain Rated 6 Or Greater) Qty: 5 0RF polyethylene glycol 3350 [Miralax] 17 gram Powder In Packet 17 g PO QAM Qty: 30 0RF Minerin Creme Cream 1 applic topical DAILY Qty: 113 0RF Rx Instructions: apply to bilateral feet intact skin lidocaine [Lidoderm] 5 % Adhesive Patch,Medicated 1 patch transdermal DAILY Qty: 10 0RF insulin glargine [Lantus U-100 Insulin] 100 unit/mL Solution 14 unit subcut HS Qty: 10 0RF Continued meloxicam 15 mg tablet 15 mg PO DAILY omeprazole 20 mg capsule,delayed release(DR/EC) 20 mg PO DAILY Trelegy Ellipta 200-62.5-25 mcg blister with device 1 inh inhalation DAILY Qty: 28 0RF albuterol sulfate 90 mcg/actuation HFA aerosol inhaler 2 inh inhalation Q4H PRN (Reason: shortness of breath or wheezing) Qty: 8.5 6RF folic acid 1 mg tablet See Rx Instructions .ROUTE .COMPLEX Qty: 90 3RF Dose Instruction: TAKE 1 TABLET BY MOUTH DAILY Rx Instructions: TAKE 1 TABLET BY MOUTH DAILY aspirin 81 mg tablet,delayed release (DR/EC) 81 mg PO DAILY Qty: 90 3RF atorvastatin 20 mg tablet See Rx Instructions .ROUTE .COMPLEX Qty: 90 3RF Dose Instruction: TAKE 1 TABLET BY MOUTH EVERY EVENING Rx Instructions: TAKE 1 TABLET BY MOUTH EVERY EVENING lisinopril 10 mg tablet 10 mg PO DAILY Qty: 90 2RF gabapentin 300 mg capsule See Rx Instructions .ROUTE .COMPLEX Qty: 540 1RF Dose Instruction: TAKE 2 CAPSULES BY MOUTH THREE TIMES DAILY Rx Instructions: TAKE 2 CAPSULES BY MOUTH THREE TIMES DAILY Held metformin 500 mg tablet extended release 24 hr 2,000 mg PO DAILY Hold Instructions: HOLD - resume when okay with the provider glipizide 5 mg tablet 5 mg PO DAILY Qty: 90 3RF Hold Instructions: HOLD - resume when okay with the provider Discontinued silver sulfadiazine 1 % cream 1 applic topical BID Qty: 400 0RF Rx Instructions: apply a 1.5 mm thickness Date of admission: 05/17/25 03:55 Primary Care Provider: Loren Douglass Admitting Provider: Odessa Russell Attending physician on admission: Odessa Russell Condition: Stable Hospitalist MIPS Heart Failure (Exclusion) Patient has history of Heart Transplant or Left Ventricular Assistive Device?: No IF YES, STOP HERE Heart Failure (Qualifier) Patient has current or prior documentation of LVEF less than or equal to 40%, or mod/servere depressed LVSF?: No IF NO, STOP HERE
[2025-05-30 14:00] VITALS: BP 96/62; PULSE 95; RESP 18; TEMP 36.1; O2SAT 100
== END 2025-05-30 16:23 | DRG 380 ==
LOC: ANHED 05-17 00:53 → ANH3MEDSUR 05-17 04:40
PROVIDERS: Hospitalist; Internal Medicine; Admitting Provider Internal Medicine; Emergency Provider Student in an Organized Health Care Education/Training Program; PCP Family Medicine; Visit Provider Internal Medicine
DX: E11.628 Type 2 diabetes mellitus with other skin complications (principal); L03.115 Cellulitis of right lower limb; R78.81 Bacteremia; E11.622 Type 2 diabetes mellitus with other skin ulcer; E11.621 Type 2 diabetes mellitus with foot ulcer; E11.51 Type 2 diabetes mellitus with diabetic peripheral angiopathy without gangrene; L03.116 Cellulitis of left lower limb; L97.519 Non-pressure chronic ulcer of other part of right foot with unspecified severity; L97.529 Non-pressure chronic ulcer of other part of left foot with unspecified severity; L97.319 Non-pressure chronic ulcer of right ankle with unspecified severity; L97.329 Non-pressure chronic ulcer of left ankle with unspecified severity; L97.919 Non-pressure chronic ulcer of unspecified part of right lower leg with unspecified severity; B95.7 Other staphylococcus as the cause of diseases classified elsewhere; I10 Essential (primary) hypertension; I87.2 Venous insufficiency (chronic) (peripheral); E78.5 Hyperlipidemia, unspecified; J45.909 Unspecified asthma, uncomplicated; K21.9 Gastro-esophageal reflux disease without esophagitis; M24.412 Recurrent dislocation, left shoulder; M05.9 Rheumatoid arthritis with rheumatoid factor, unspecified; M19.90 Unspecified osteoarthritis, unspecified site; Z87.891 Personal history of nicotine dependence
CPT/HCPCS: 36415; 36569; 73030; 73221; 73562; 73610; 73630; 73720; 80048; 80053; 80069; 80202; 81001; 82565; 82948; 83036; 83735; 85025; 85027; 85652; 86140; 87040; 87070; 87075; 87205; 93005; 93925; 93970; 94640; 96365; 96375; 97110; 97162; 97165; 97530; 97535; 99285; A9270; A9577; C1751; J0692; J1650; J1815; J2003; J2060; J2185; J2270; J3373; J3475